=== PATIENT | male | born 1935 | race Caucasian/White ===

== ENCOUNTER 2018-12-01 08:44 | Emergency (ER) | payer MEDICARE ==
--- NOTE | 2018-12-01 09:22 | ERPHSYRPT ---
- History of Present Illness Time Seen by Provider: 12/01/18 09:12 Source: patient Exam Limitations: no limitations Patient Subjective Stated Complaint: "My back has been hurting for past 2 weeks probably due to lifting. heavy garage door. I have a long history of back problems no surgies by injections." Triage Nursing Assessment: AAox3, color good, resp easy, lungs clear bilaterally , abd soft, nontender, bowel sounds heard. CHACON well, no edema to extremeties noted. Denies falls. Physician History: The patient is an 83-year-old male complaining of a flareup of his low back pain. He has a history of low back pain with bilateral sciatica. His back pain began and has worsened for the past 2 weeks. He has been parking his car in his garage recently. He has a heavy garage door that he must lift himself. He denies any urinary or bowel problems. He denies numbness or tingling. He saw Dr. Sagastume a week ago and was given a "pain shot and steroid shot". He saw the same doctor 2 days ago and was once again given a "pain shot and steroid shot". The treatment has not helped. He is in pain every time he gets up out of bed. His past medical history is significant for low back pain, bilateral sciatica, HTN, DM, high cholesterol, and hypothyroidism Timing/Duration: week(s), gradual onset, worse Method of Injury: lifting Quality: sharp, aching Back Pain Location: lumbar spine Back Pain Radiation: buttocks, upper legs, lower legs Severity of Pain-Max: severe Severity of Pain-Current: severe Modifying Factors: Improves With: pain medication Associated Symptoms: lower back pain, No urinary incontinence, No loss of bowel control, No constipation, No problems urinating, No weakness, No sensory/motor loss, No tingling in legs/feet Previous symptoms: same symptoms as today, recently seen, recently treated Allergies/Adverse Reactions: Sulfa (Sulfonamide Antibiotics) Allergy (Mild, Verified 12/01/18 09:07) Home Medications: Acetaminophen 325 mg [Tylenol 325 mg] 325 mg PO TID 12/01/18 [History] Aspirin EC 81 mg [Ecotrin 81 mg] 81 mg PO DAILY 12/01/18 [History] Ferric Citrate [Auryxia] 210 mg PO TID 12/01/18 [History] Hydralazine HCl 10 mg PO TID 12/01/18 [History] Insulin Detemir [Levemir] 20 unit SQ BID 12/01/18 [History] Levothyroxine Sodium 50 Mcg [Synthroid 50 Mcg] 50 mcg PO DAILY 12/01/18 [ History] Metoprolol Tartrate 50 mg [Lopressor 50 MG] 50 mg PO BID 12/01/18 [History ] Polyethylene Glycol 3350 [Miralax] 17 gm PO DAILY 12/01/18 [History] Pravastatin Sodium 40 mg PO HS 12/01/18 [History] Ranitidine HCl [Zantac 75] 75 mg PO BID 12/01/18 [History] Hx Tetanus, Diphtheria Vaccination/Date Given: Yes Hx Influenza Vaccination/Date Given: Yes Hx Pneumococcal Vaccination/Date Given: No - Review of Systems Constitutional: No Fever, No Chills Eyes: No Symptoms Ears, Nose, & Throat: No Symptoms Respiratory: No Cough, No Dyspnea Cardiac: No Chest Pain, No Edema, No Syncope Abdominal/Gastrointestinal: No Abdominal Pain, No Nausea, No Vomiting, No Diarrhea Genitourinary Symptoms: No Dysuria Musculoskeletal: Back Pain, No Neck Pain Skin: No Rash Neurological: No Dizziness, No Focal Weakness, No Sensory Changes Psychological: No Symptoms Endocrine: No Symptoms Hematologic/Lymphatic: No Symptoms Immunological/Allergic: No Symptoms All Other Systems: Reviewed and Negative - Past Medical History Pertinent Past Medical History: Yes ENT History: No Pertinent History Cardiac History: No Pertinent History Respiratory History: No Pertinent History Endocrine Medical History: Hypothyroidism Musculoskeletal History: Other GI Medical History: GERD History: Renal Disease Psycho-Social History: No Pertinent History Male Reproductive Disorders: No Pertinent History - Past Surgical History Past Surgical History: Yes Neuro Surgical History: No Pertinent History Cardiac: No Pertinent History Respiratory: No Pertinent History Gastrointestinal: Cholecystectomy Genitourinary: No Pertinent History Musculoskeletal: No Pertinent History Male Surgical History: No Pertinent History - Social History Smoking Status: Never smoker Exposure to second hand smoke: No Drug Use: none Patient Lives Alone: Yes - Nursing Vital Signs Nursing Vital Signs: Initial Vital Signs Temperature 98.5 F 12/01/18 08:44 Pulse Rate 66 12/01/18 08:44 Respiratory Rate 20 12/01/18 08:44 Blood Pressure 159/72 12/01/18 08:44 O2 Sat by Pulse Oximetry 94 L 12/01/18 08:44 Pain Scale Pain Intensity 9 - Physical Exam General Appearance: moderate distress Eye Exam: PERRL/EOMI, eyes nml inspection Ears, Nose, Throat Exam: normal ENT inspection Neck Exam: normal inspection, non-tender, supple, full range of motion, No meningismus, No midline tenderness Respiratory Exam: normal breath sounds, lungs clear, No respiratory distress Cardiovascular Exam: regular rate/rhythm, normal heart sounds Gastrointestinal Exam: soft, No tenderness, No mass Rectal Exam: not done Back Exam: decreased range of motion, other (Examination of the low back is significant for bilateral lumbar paraspinous spasm and tenderness. There is also some mild tenderness lumbar vertebrae.) Extremity Exam: normal inspection, normal range of motion, No calf tenderness, No pedal edema Neurologic Exam: alert, oriented x 3, cooperative, windows laptop technician II-XII nml as tested, normal mood/affect, nml station & gait, sensation nml, No motor deficits Skin Exam: normal color, warm, dry, No rash SpO2 Interpretation: normal SpO2: 94 O2 Delivery: Room Air - Radiology Exams L-Spine X-ray Interpretation: Interpreted by me, Negative, No Fracture, No Subluxation, Other (non acute; L2/L3 vacuum disc, mild anteriolisthesis of L4 over L5, degenerative changes, no comp) Ordered Tests: Active Orders 24 hr Category Date Time Status LUMBAR LIMITED (2 OR 3 VIEWS) Stat Exams 12/01/18 10:09 Taken Medication Summary Discontinued Medications Generic Name Dose Route Start Last Admin Trade Name Herbie PRN Reason Stop Dose Admin Dexamethasone Sodium Phosphate 10 mg 12/01/18 09:33 12/01/18 09:42 Decadron 10mg Inj. IM 12/01/18 09:34 10 mg STAT ONE Administration Dexamethasone Sodium Phosphate Confirm 12/01/18 09:40 Decadron 10mg Inj. Administered 12/01/18 09:41 Dose 10 mg .ROUTE .STK-MED ONE Hydromorphone HCl 1 mg 12/01/18 09:31 12/01/18 09:43 Hydromorphone 1 Mg/Ml Ampule IM 12/01/18 09:32 1 mg STAT ONE Administration Hydromorphone HCl Confirm 12/01/18 09:40 Hydromorphone 1 Mg/Ml Ampule Administered 12/01/18 09:41 Dose 1 mg .ROUTE .STK-MED ONE Promethazine HCl 25 mg 12/01/18 09:31 12/01/18 09:42 Phenergan 25 Mg Inj IM 12/01/18 09:32 25 mg STAT ONE Administration Promethazine HCl Confirm 12/01/18 09:39 Phenergan 25 Mg Inj Administered 12/01/18 09:40 Dose 25 mg .ROUTE .STK-MED ONE - Progress Progress: improved Counseled pt/family regarding: diagnosis, need for follow-up, rad results - Departure Time of Disposition: 11:00 Departure Disposition: Home Clinical Impression: Low back pain due to bilateral sciatica Condition: Stable Critical Care Time: No Referrals: LAKISHA SAGASTUME MD [Primary Care Provider] - Additional Instructions: You have low back pain with bilateral sciatica. You were given Dilaudid 1 mg, Phenergan 25 mg, and Decadron 10 mg by IM in the ER. Take [place] one tablet every 6 hours as needed. Take cyclobenzaprine 10 mg every 8 hours as needed. Apply ice to the area for 15-20 minutes 3-4 times a day as needed. Follow-up with your primary medical doctor on Monday. Prescriptions: Hydrocodone/APAP 5-325 Tab^^^ [[place] 5-325 Tablet^^^] 1 tab PO Q6HPRN PRN #10 tablet MDD 6 PRN Reason: Pain Cyclobenzaprine HCl 10 mg PO Q8H PRN PRN #10 tablet PRN Reason: Pain
[2018-12-01] MEDS ORDERED: Hydromorphone 1 mg/ml Ampule IM ONE (09:31)
[2018-12-01] MEDS ORDERED: Phenergan 25 MG INJ IM ONE (09:31)
[2018-12-01] MEDS ORDERED: DECADRON 10MG INJ. IM ONE (09:33)
[2018-12-01] MEDS ORDERED: Phenergan 25 MG INJ ONE (09:39)
[2018-12-01] MEDS ORDERED: Hydromorphone 1 mg/ml Ampule ONE (09:40)
[2018-12-01] MEDS ORDERED: DECADRON 10MG INJ. ONE (09:40)
[2018-12-01 11:10] VITALS: BP 130/57; PULSE 56; O2SAT 96
--- NOTE | 2018-12-02 00:24 | XRAY ---
Indication: Low back pain following injury. Comparison: None 3 views of the lumbar spine demonstrates 5 lumbar vertebral segments with mild dextroscoliosis centered at L2, mild/moderate multilevel degenerative spondylosis greatest at L2-L3, 3-4 mm L4 anterolisthesis, cholecystectomy clips, calcified splenic granulomas, and heavy scattered vascular calcifications. No other bony, articular, or soft tissue abnormalities. Impression: Nonacute lumbar spine with chronic features.
== END 2018-12-01 11:20 | disposition home or self-care (01) ==
LOC: ED 08:44
DX: M54.30 Sciatica, unspecified side (principal); M54.5 Low back pain; I10 Essential (primary) hypertension; E11.9 Type 2 diabetes mellitus without complications; E78.00 Pure hypercholesterolemia, unspecified; E03.9 Hypothyroidism, unspecified; Z79.899 Other long term (current) drug therapy
CPT/HCPCS: 72100; 96372; 99284; J1100; J1170; J2550

== ENCOUNTER 2018-12-03 07:24 | Emergency (ER) | payer MEDICARE ==
[2018-12-03] MEDS ORDERED: Hydromorphone 1 mg/ml Ampule IV ONE (07:57)
[2018-12-03] MEDS ORDERED: Zofran 4 MG/2 ML VIAL IV ONE (07:57)
--- NOTE | 2018-12-03 07:57 | ERPHSYRPT ---
- History of Present Illness Time Seen by Provider: 12/03/18 07:52 Source: patient, EMS Exam Limitations: no limitations Patient Subjective Stated Complaint: pain lower back Triage Nursing Assessment: Pt c/o of chronic bilateral low back pain that radiates down both legs, reports that he slid out of bed this morning and couldn 't get up, was here 2 days ago for the same problem, denies going to a pain specialist, sees Dr. Sagastume, pulses normal, no difficulties with strength, doesn't appear to be in any distress Physician History: 83 y/o white male presents with acute exacerbation of his chronic lbp. here 2 days ago for same issue. plain xray negative Timing/Duration: today Method of Injury: other (no new injury) Quality: sharp, stabbing Back Pain Location: lumbar spine Back Pain Radiation: upper legs (bilat posteriorly) Severity of Pain-Max: moderate Severity of Pain-Current: moderate Modifying Factors: Improves With: movement Associated Symptoms: denies symptoms Previous symptoms: same symptoms as today Allergies/Adverse Reactions: Sulfa (Sulfonamide Antibiotics) Allergy (Mild, Verified 12/03/18 07:36) Home Medications: Acetaminophen 325 mg [Tylenol 325 mg] 325 mg PO TID 12/01/18 [History] Aspirin EC 81 mg [Ecotrin 81 mg] 81 mg PO DAILY 12/01/18 [History] Ferric Citrate [Auryxia] 210 mg PO TID 12/01/18 [History] Hydralazine HCl 10 mg PO TID 12/01/18 [History] Insulin Detemir [Levemir] 20 unit SQ BID 12/01/18 [History] Levothyroxine Sodium 50 Mcg [Synthroid 50 Mcg] 50 mcg PO DAILY 12/01/18 [ History] Metoprolol Tartrate 50 mg [Lopressor 50 MG] 50 mg PO BID 12/01/18 [History ] Polyethylene Glycol 3350 [Miralax] 17 gm PO DAILY 12/01/18 [History] Pravastatin Sodium 40 mg PO HS 12/01/18 [History] Ranitidine HCl [Zantac 75] 75 mg PO BID 12/01/18 [History] Hx Tetanus, Diphtheria Vaccination/Date Given: Yes Hx Influenza Vaccination/Date Given: Yes Hx Pneumococcal Vaccination/Date Given: No - Review of Systems Constitutional: No Symptoms Eyes: No Symptoms Ears, Nose, & Throat: No Symptoms Respiratory: No Symptoms Cardiac: No Symptoms Abdominal/Gastrointestinal: No Symptoms Genitourinary Symptoms: No Symptoms Musculoskeletal: Back Pain Skin: No Symptoms Neurological: No Symptoms Psychological: No Symptoms Endocrine: No Symptoms Hematologic/Lymphatic: No Symptoms Immunological/Allergic: No Symptoms All Other Systems: Reviewed and Negative - Past Medical History Pertinent Past Medical History: Yes ENT History: No Pertinent History Cardiac History: No Pertinent History Respiratory History: No Pertinent History Endocrine Medical History: Hypothyroidism Musculoskeletal History: Other GI Medical History: GERD History: Renal Disease Psycho-Social History: No Pertinent History Male Reproductive Disorders: No Pertinent History - Past Surgical History Past Surgical History: Yes Neuro Surgical History: No Pertinent History Cardiac: No Pertinent History Respiratory: No Pertinent History Gastrointestinal: Cholecystectomy Genitourinary: No Pertinent History Musculoskeletal: No Pertinent History Male Surgical History: No Pertinent History - Social History Smoking Status: Never smoker Exposure to second hand smoke: No Drug Use: none Patient Lives Alone: Yes - Nursing Vital Signs Nursing Vital Signs: Initial Vital Signs Temperature 98.0 F 12/03/18 07:26 Pulse Rate 66 12/03/18 07:26 Respiratory Rate 14 12/03/18 07:26 Blood Pressure 175/79 12/03/18 07:26 O2 Sat by Pulse Oximetry 97 12/03/18 07:26 Pain Scale Pain Intensity [Lower Back] 6 Pain Intensity 4 - Physical Exam General Appearance: mild distress, alert, anxiety Eye Exam: PERRL/EOMI Ears, Nose, Throat Exam: normal ENT inspection, moist mucous membranes Neck Exam: normal inspection, non-tender, supple, full range of motion Respiratory Exam: normal breath sounds, lungs clear, airway intact, No chest tenderness, No respiratory distress Cardiovascular Exam: regular rate/rhythm, normal heart sounds, normal peripheral pulses Gastrointestinal Exam: soft, normal bowel sounds, No tenderness, No guarding, No rebound Rectal Exam: not done Back Exam: normal inspection, decreased range of motion, muscle spasm, No CVA tenderness, No vertebral tenderness, No point tenderness Extremity Exam: normal inspection, normal range of motion, pelvis stable Neurologic Exam: alert, oriented x 3, cooperative, sterile processing technologist II-XII nml as tested Skin Exam: normal color, warm, dry Lymphatic Exam: No adenopathy SpO2 Interpretation: normal SpO2: 97 O2 Delivery: Room Air - Course Nursing assessment & vital signs reviewed: Yes Ordered Tests: Active Orders 24 hr Category Date Time Status IV Insertion STAT Care 12/03/18 07:57 Active Oxygen-ED Only Nasal Cannula 2 lpm Care 12/03/18 08:30 Active LUMBAR SPINE W/O [CT] Stat Exams 12/03/18 07:57 Completed Medication Summary Discontinued Medications Generic Name Dose Route Start Last Admin Trade Name Herbie PRN Reason Stop Dose Admin Diazepam 5 mg 12/03/18 07:58 12/03/18 08:17 Valium 10 Mg/2 Ml Syringe IV 12/03/18 07:59 5 mg STAT ONE Administration Hydromorphone HCl 0.5 mg 12/03/18 07:57 12/03/18 08:12 Hydromorphone 1 Mg/Ml Ampule IV 12/03/18 07:58 0.5 mg STAT ONE Administration Hydromorphone HCl Confirm 12/03/18 08:09 Hydromorphone 1 Mg/Ml Ampule Administered 12/03/18 08:10 Dose 1 mg .ROUTE .STK-MED ONE Ondansetron HCl 4 mg 12/03/18 07:57 12/03/18 08:12 Zofran 4 Mg/2 Ml Vial IV 12/03/18 07:58 4 mg STAT ONE Administration Ondansetron HCl Confirm 12/03/18 08:09 Zofran 4 Mg/2 Ml Vial Administered 12/03/18 08:10 Dose 4 mg .ROUTE .STK-MED ONE - Progress Progress: improved, pain not gone completely, re-examined Progress Note: 12/03/18 10:34 pt much more comfortable. pt intermittently falling asleep. still unable to get up on his own. spoke with dr. sagastume, i reviewed pt condition and findings. dr. sagastume states to take pt for his dialysis now then dialysis is to call dr. sagastume for direct admit orders into [facility] Counseled pt/family regarding: diagnosis, need for follow-up, rad results - Departure Time of Disposition: 10:38 Departure Disposition: Home Clinical Impression: Back pain Condition: Stable Critical Care Time: No Referrals: LAKISHA SAGASTUME MD [Primary Care Provider] - Additional Instructions: go to dialysis. after dialysis, he is to be directly admitted into [facility] by Dr. Sagastume.
[2018-12-03] MEDS ORDERED: VALIUM 10 MG/2 ML SYRINGE IV ONE (07:58)
[2018-12-03] MEDS ORDERED: Hydromorphone 1 mg/ml Ampule ONE (08:09)
[2018-12-03] MEDS ORDERED: Zofran 4 MG/2 ML VIAL ONE (08:09)
--- NOTE | 2018-12-03 09:42 | XRAY ---
Indication: Low back pain. Multiple contiguous axial images obtained through the lumbar spine. Sagittal and coronal reformatted images obtained. Comparison: Lumbar radiograph 2 days ago. Negative acute fracture or suspicious bony lesions. Again osteopenia, multilevel bridging/nonbridging endplate osteophytes, and L2-L5 degenerative vacuum disc phenomena. There is L3-L5 spinal canal stenosis due to combination of broad-based disc bulge and bilateral ligament flavum hypertrophy. Mean AP thecal sac diameter is 8mm at L3-L4 level and 9 mm at L4-L5 level. Lesser broad-based disc bulge at L2-L3 level. Sagittal and coronal reformatted images demonstrates stable mild dextroscoliosis centered at L2-L3, minimal 2 mm L4 anterolisthesis, and multilevel disc space narrowing greatest at L2-L3. Negative acute compression fracture/subluxation. Elsewhere stable heavy vascular calcifications without AAA. Impression: 1. Multilevel degenerative disc disease. Greatest extent at L3-L5 levels with spinal canal stenosis. 2. Stable osteopenia, multilevel degenerative spondylosis, minimal grade 1 L4 spondylolisthesis, dextroscoliosis, and arteriosclerotic disease. 3. Remaining CT lumbar spine is negative. CT DI 97.93
[2018-12-03 11:34] VITALS: BP 149/65; PULSE 60; O2SAT 99
== END 2018-12-03 11:05 | disposition home or self-care (01) ==
LOC: ED 07:24
DX: M54.5 Low back pain (principal); M79.662 Pain in left lower leg; M79.661 Pain in right lower leg; E03.9 Hypothyroidism, unspecified; K21.9 Gastro-esophageal reflux disease without esophagitis
CPT/HCPCS: 36000; 72131; 96374; 96375; 99284; J1170; J2405; J3360

== ENCOUNTER 2018-12-03 13:05 | Observation (INO) | payer MEDICARE ==
[2018-12-03] MEDS: Sodium Chloride 0.9% 1000 ML 1,000 ML IV SCH (17:29)
[2018-12-03] MEDS ORDERED: TYLENOL 325 MG PO PRN (17:32)
[2018-12-03] MEDS ORDERED: Cyclobenzaprine 10 MG PO PRN (17:32)
[2018-12-03] MEDS ORDERED: NORCO 5/325 MG PO PRN (17:38)
[2018-12-03] MEDS: Neurontin 100 MG PO SCH (21:27)
[2018-12-03] MEDS: Pepcid 20 MG PO SCH (21:27)
[2018-12-03] MEDS: ZOCOR 20MG PO SCH (21:28)
[2018-12-03] MEDS: Sodium Chloride 0.9% 10 ML FLUSH Syringe IV SCH (21:28)
[2018-12-03] MEDS ORDERED: Lantus Insulin SQ SCH (22:00)
[2018-12-03] MEDS ORDERED: Apresoline 25 MG TABLET PO SCH (22:00)
[2018-12-03] MEDS ORDERED: Toprol Xl 50 MG PO SCH (22:00)
[2018-12-04] MEDS: TORAdol 30 mg Injection IV PRN ×2 (01:38→13:58)
[2018-12-04] MEDS: Sodium Chloride 0.9% 10 ML FLUSH Syringe IV SCH ×3 (05:27→22:17)
[2018-12-04] MEDS ORDERED: MEDICATION INTERVENTION MC SCH (07:30)
[2018-12-04] MEDS: Lantus Insulin SQ SCH ×2 (08:01→22:17)
--- NOTE | 2018-12-04 08:54 | PCM.NOTE ---
Date and Time: 12/04/18 0850 Subjective Assessment: still c/o pain in legs, unable to bear weight as pain radiate to legs - Review of Systems Constitutional: No Fever, No Chills Eyes: No Symptoms Ears, Nose, & Throat: No Symptoms Respiratory: No Cough, No Short Of Breath Cardiac: No Chest Pain, No Edema, No Syncope Abdominal/Gastrointestinal: No Abdominal Pain, No Nausea, No Vomiting, No Diarrhea Genitourinary Symptoms: No Dysuria Musculoskeletal: Arthralgias, Joint Pain, No Back Pain, No Neck Pain Skin: No Rash Neurological: Focal Weakness, No Dizziness, No Sensory Changes Psychological: No Symptoms Endocrine: No Symptoms Hematologic/Lymphatic: No Symptoms Immunological/Allergic: No Symptoms Objective Exam General Appearance: no apparent distress, alert Neurologic Exam: alert, oriented x 3, cooperative, normal mood/affect, nml cerebellar function, sensation nml, No motor deficits Skin Exam: normal color, warm, dry Eye Exam: PERRL, EOMI, eyes nml inspection Ears, Nose, Throat Exam: normal ENT inspection, pharynx normal, moist mucous membranes Neck Exam: normal inspection, non-tender, supple, full range of motion Respiratory Exam: normal breath sounds, lungs clear, No respiratory distress Cardiovascular Exam: regular rate/rhythm, normal heart sounds Gastrointestinal/Abdomen Exam: soft, No tenderness, No mass Extremity Exam: normal inspection, normal range of motion, parasthesia, limited range of motion Back Exam: normal inspection, normal range of motion, vertebral tenderness, decreased range of motion, muscle spasm, No CVA tenderness Male Genitalia Exam: deferred Rectal Exam: deferred OBJECTIVE DATA Vital Signs: Vital Signs - 24 hr Temp Pulse Resp BP Pulse Ox 12/04/18 08:00 97.7 F 53 L 18 128/60 92 L 12/04/18 04:00 97.9 F 63 18 109/57 94 L 12/03/18 23:47 98.5 F 53 L 20 123/59 94 L 12/03/18 19:05 98.1 F 62 22 118/57 92 L 12/03/18 16:04 97.7 F 62 18 142/65 96 Pain Assessment - Last Documented Pain Intensity 3 Pain Scale Used 0-10 Pain Scale Intake and Output: Intake & Output 12/01/18 12/02/18 12/03/18 12/04/18 11:59 11:59 11:59 11:59 Intake Total 780 Balance 780 Weight 85.4 kg Lab Results: Accuchecks Date 12/03/18 Time 21:50 Accucheck Value: 65 Accucheck Value: 209 Accucheck Value: 98 Lab Results-Last 24 Hours 12/03/18 Range/Units 08:03 Hemoglobin A1c 6.91 H (4.5-6.0) % Radiology Exams: Radiology Procedures Category Date Time Status MRI L-SPINE WITHOUT CONTRAST [MRI] Routine Exams 12/04/18 16:30 Ordered Assessment/Plan (1) Intractable back pain Current Visit: Yes Status: Acute Code(s): M54.9 - DORSALGIA, UNSPECIFIED (2) Chronic renal disease, stage 5, glomerular filtration rate less than or equal to 15 mL/min/1.73 square meter Current Visit: Yes Status: Acute Code(s): N18.5 - CHRONIC KIDNEY DISEASE, STAGE 5 (3) Low back pain due to bilateral sciatica Current Visit: No Status: Acute Code(s): M54.41 - LUMBAGO WITH SCIATICA, RIGHT SIDE; M54.42 - LUMBAGO WITH SCIATICA, LEFT SIDE (4) Degenerative disc disease, lumbar Current Visit: Yes Status: Acute Code(s): M51.36 - OTHER INTERVERTEBRAL DISC DEGENERATION, LUMBAR REGION
[2018-12-04] MEDS: ECOTRIN 81 MG PO SCH (09:17)
[2018-12-04] MEDS: Miralax Powder 17GM PACKET PO SCH (09:17)
[2018-12-04] MEDS: Pepcid 20 MG PO SCH ×2 (09:17→22:18)
[2018-12-04] MEDS: SYNTHROID 50 MCG PO SCH (09:17)
[2018-12-04] MEDS: Lopressor 50 MG PO SCH ×2 (09:17→22:17)
[2018-12-04] MEDS: Apresoline 25 MG TABLET PO SCH ×3 (09:17→22:17)
[2018-12-04] MEDS: NORCO 5/325 MG PO PRN (09:23)
[2018-12-04] MEDS: Cyclobenzaprine 10 MG PO PRN (13:26)
--- NOTE | 2018-12-04 15:23 | XRAY ---
Indication: Low back pain following lifting injury. Sagittal and axial MRI lumbar spine performed without contrast using T1 and T2 weighted sequences. Comparison: None. There is CT lumbar spine one day earlier. Sagittal images demonstrates normal lumbar lordosis with mild double curvature scoliosis and 2-3 mm L4 anterolisthesis. Multilevel degenerative disc desiccation signal with disc space narrowing greatest at the L2-L3 and L4-L5 levels. These 2 same levels demonstrate opposing endplate degenerative discogenic signal changes, Modic type II. Tiny T11/T12/L1/L5 vertebral hemangiomas. Superior S2 level demonstrates acute to subacute appearing nondisplaced/non-angulated fracture. No suspicious bony lesions or abnormal bone marrow signal. Conus medullaris terminates at the L1 level. Sagittal images through the T12-L2 levels negative for disc herniation, spinal canal, or foraminal stenosis. Axial images at the L2-L3 level demonstrates mild annular disc osteophyte complex slightly effacing the thecal sac and producing left foraminal stenosis and right foraminal narrowing. There is impingement of the exiting left L2 nerve root. No central disc herniation. Mild bilateral degenerative facet and ligamentum flavum hypertrophy further effaces the thecal sac. Mean AP thecal sac diameter is 8 mm. At the L3-L4 level, there is mild annular disc bulge slightly effacing the thecal sac and producing bilateral foraminal stenosis, left greater than right. Slight impingement of the exiting left L3 nerve root. Mild bilateral degenerative facet and ligamentum flavum hypertrophy. Mean AP thecal sac diameter is 9 mm. At the L4-L5 level, there bilateral foraminal stenosis, right greater than left due to combination of mild annular disc bulge and grade 1 anterolisthesis. Impingement of the exiting right L4 nerve root. Moderate bilateral degenerative facet and ligamentum flavum hypertrophy. Mean AP thecal sac diameter is 8-9 mm. At the L5-S1 level, there is minimal broad-based disc bulge minimally effacing the thecal sac. No disc herniation, spinal canal, or foraminal stenosis. Minimal bilateral degenerative facet hypertrophy. Incidental massively distended urinary bladder. Impression: 1. Multilevel degenerative disc disease detailed level by level. Greatest extent L2-L3 and L4-L5 levels. Negative disc herniation. 2. Nondisplaced acute to subacute appearing S2 fracture. This level was not included on the recent CT exam. 3. Grade 1 L4 spondylolisthesis, multilevel vertebral hemangiomas, and double curvature scoliosis. 4. Massively distended urinary bladder. Rule out outlet obstruction versus neurogenic bladder.
[2018-12-04] MEDS: Sodium Chloride 0.9% 1000 ML 1,000 ML IV SCH (18:08)
[2018-12-04] MEDS: Neurontin 100 MG PO SCH (22:17)
[2018-12-04] MEDS: ZOCOR 20MG PO SCH (22:18)
[2018-12-05] MEDS: NORCO 5/325 MG PO PRN ×2 (03:33→15:21)
[2018-12-05] MEDS: Sodium Chloride 0.9% 10 ML FLUSH Syringe IV SCH ×3 (05:22→21:27)
[2018-12-05] MEDS: TORAdol 30 mg Injection IV PRN ×2 (07:58→21:27)
[2018-12-05] MEDS: Lantus Insulin SQ SCH ×2 (08:10→21:27)
[2018-12-05] MEDS: SYNTHROID 50 MCG PO SCH (10:46)
[2018-12-05] MEDS: Apresoline 25 MG TABLET PO SCH ×2 (10:46→14:42)
[2018-12-05] MEDS: ECOTRIN 81 MG PO SCH (10:46)
[2018-12-05] MEDS: Pepcid 20 MG PO SCH ×2 (10:47→21:27)
[2018-12-05] MEDS: Lopressor 50 MG PO SCH ×2 (10:47→21:26)
[2018-12-05] MEDS: Miralax Powder 17GM PACKET PO SCH (10:47)
[2018-12-05 12:08] LABS: ANION GAP 21.5 MEQ/L (5-15); Calcium 8.7 mg/dL (8.4-10.2); Creatinine 1 8.63 mg/dL (0.66-1.25); Potassium 5.5 mmol/L (3.5-5.1)
--- NOTE | 2018-12-05 12:25 | PCM.NOTE ---
Date and Time: 12/05/18 1224 Subjective Assessment: doing ok still severe back pain - Review of Systems Constitutional: No Fever, No Chills Eyes: No Symptoms Ears, Nose, & Throat: No Symptoms Respiratory: No Cough, No Short Of Breath Cardiac: No Chest Pain, No Edema, No Syncope Abdominal/Gastrointestinal: No Abdominal Pain, No Nausea, No Vomiting, No Diarrhea Genitourinary Symptoms: No Dysuria Musculoskeletal: No Back Pain, No Neck Pain Skin: No Rash Neurological: Gait Changes, No Dizziness, No Focal Weakness, No Sensory Changes Psychological: No Symptoms Endocrine: No Symptoms Hematologic/Lymphatic: No Symptoms Immunological/Allergic: No Symptoms Objective Exam General Appearance: no apparent distress, alert Neurologic Exam: alert, oriented x 3, cooperative, normal mood/affect, nml cerebellar function, sensation nml, No motor deficits Skin Exam: normal color, warm, dry Eye Exam: PERRL, EOMI, eyes nml inspection Ears, Nose, Throat Exam: normal ENT inspection, pharynx normal, moist mucous membranes Neck Exam: normal inspection, non-tender, supple, full range of motion Respiratory Exam: normal breath sounds, lungs clear, No respiratory distress Cardiovascular Exam: regular rate/rhythm, normal heart sounds Gastrointestinal/Abdomen Exam: soft, No tenderness, No mass Extremity Exam: normal inspection, normal range of motion Back Exam: normal inspection, normal range of motion, No CVA tenderness, No vertebral tenderness Male Genitalia Exam: deferred Rectal Exam: deferred OBJECTIVE DATA Vital Signs: Vital Signs - 24 hr Temp Pulse Resp BP Pulse Ox 12/05/18 07:31 97.6 F 78 20 138/80 97 12/05/18 04:15 97.6 F 61 18 155/67 96 12/04/18 23:35 98.6 F 57 L 16 161/70 96 12/04/18 19:41 97.7 F 55 L 18 141/58 97 12/04/18 16:00 56 L 18 147/65 94 L Pain Assessment - Last Documented Pain Intensity 6 Pain Scale Used 0-10 Pain Scale Intake and Output: Intake & Output 12/03/18 12/04/18 12/05/18 12/06/18 11:59 11:59 11:59 11:59 Intake Total 780 660 Output Total 8 Balance 780 652 Weight 85.4 kg Lab Results: Accuchecks Date 12/05/18 Date 12/05/18 Time 11:30 Time 07:30 Accucheck Value: 158 Accucheck Value: 102 Accucheck Value: 225 Accucheck Value: 185 Lab Results-Last 24 Hours 12/05/18 Range/Units 11:10 Sodium 133 L (137-145) mmol/L Potassium 5.5 H (3.5-5.1) mmol/L Chloride 88 L (98-107) mmol/L Carbon Dioxide 29 (22-30) mmol/L Anion Gap 21.5 H (5-15) MEQ/L BUN 87 H (9-20) mg/dL Creatinine 8.63 H (0.66-1.25) mg/dL Estimated GFR 6.3 ML/MIN Glucose 123 H (74-106) mg/dL Calcium 8.7 (8.4-10.2) mg/dL Radiology Exams: Radiology Procedures Category Date Time Status MRI L-SPINE WITHOUT CONTRAST [MRI] Routine Exams 12/04/18 14:50 Completed Multi-Disciplinary Progress Notes: Multi-Disciplinary Progress Notes 12/05/18 09:55 (created 12/05/18 10:03) Case Management Note by Luz Parks CALL TO [facility], SPOKE WITH TONIA RIGGINS, DISCUSSED THAT PT WILL NOT BE COMING TO DIALYSIS TODAY. PLAN FOR PT TO MAKE HIS NEXT DIALYSIS APPT ON MONDAY. TONIA RIGGINS, REQUESTS ORDER FOR RENAL DIET AND FLUID RESTRICTION. Initialized on 12/05/18 10:03 - END OF NOTE Assessment/Plan (1) Intractable back pain Current Visit: Yes Status: Acute Code(s): M54.9 - DORSALGIA, UNSPECIFIED (2) Chronic renal disease, stage 5, glomerular filtration rate less than or equal to 15 mL/min/1.73 square meter Current Visit: Yes Status: Acute Code(s): N18.5 - CHRONIC KIDNEY DISEASE, STAGE 5 (3) Low back pain due to bilateral sciatica Current Visit: Yes Status: Acute Code(s): M54.41 - LUMBAGO WITH SCIATICA, RIGHT SIDE; M54.42 - LUMBAGO WITH SCIATICA, LEFT SIDE (4) Degenerative disc disease, lumbar Current Visit: Yes Status: Acute Code(s): M51.36 - OTHER INTERVERTEBRAL DISC DEGENERATION, LUMBAR REGION
[2018-12-05] MEDS: Cyclobenzaprine 10 MG PO PRN (15:21)
[2018-12-05] MEDS ORDERED: Apresoline 25 MG TABLET PO ONE ×2 (16:41→22:00)
[2018-12-05] MEDS: Neurontin 100 MG PO SCH (21:27)
[2018-12-05] MEDS: ZOCOR 20MG PO SCH (21:27)
[2018-12-06] MEDS: Sodium Chloride 0.9% 10 ML FLUSH Syringe IV SCH (05:25)
[2018-12-06 07:50] VITALS: PULSE 54; O2SAT 96
[2018-12-06] MEDS: TORAdol 30 mg Injection IV PRN (08:17)
[2018-12-06] MEDS: Cyclobenzaprine 10 MG PO PRN (08:17)
[2018-12-06] MEDS: Lantus Insulin SQ SCH (08:20)
[2018-12-06] MEDS: Miralax Powder 17GM PACKET PO SCH (10:24)
[2018-12-06] MEDS: Pepcid 20 MG PO SCH (10:25)
[2018-12-06] MEDS: Lopressor 50 MG PO SCH (10:25)
[2018-12-06] MEDS: ECOTRIN 81 MG PO SCH (10:26)
[2018-12-06] MEDS: SYNTHROID 50 MCG PO SCH (10:27)
[2018-12-06] MEDS: Apresoline 25 MG TABLET PO SCH ×2 (10:33→14:50)
[2018-12-06 13:30] VITALS: BP 176/76
== END 2018-12-06 15:55 | disposition short-term general hospital (02) ==
LOC: MED SURG 16:00
PROVIDERS: ADMIT General Practice; ATTEND General Practice
DX: M54.42 Lumbago with sciatica, left side (principal); M54.41 Lumbago with sciatica, right side; M51.36 Other intervertebral disc degeneration, lumbar region; N18.5 Chronic kidney disease, stage 5; E11.9 Type 2 diabetes mellitus without complications; I10 Essential (primary) hypertension; E78.00 Pure hypercholesterolemia, unspecified; E03.9 Hypothyroidism, unspecified; Z85.46 Personal history of malignant neoplasm of prostate; Z79.899 Other long term (current) drug therapy
CPT/HCPCS: 36000; 36415; 72131; 72148; 80048; 82962; 83036; 87086; 96374; 96375; 97161; 97530; 99284; G0378; J1170; J1885; J2405; J3360; A9270-GY

== ENCOUNTER 2019-01-30 07:56 | Day surgery (SDC) | payer MEDICARE ==
[2019-01-30] MEDS ORDERED: Depo-Medrol 40 MG/ML IM ONE (07:57)
[2019-01-30] MEDS ORDERED: Marcaine 0.5% SDV 10 ML IJ ONE (07:57)
[2019-01-30] MEDS ORDERED: Xylocaine 1% Vial 30 ML PF IJ ONE (07:57)
[2019-01-30] MEDS ORDERED: ZOFRAN ODT 4 MG PO ONE ×2 (07:57→09:15)
--- NOTE | 2019-01-30 10:26 | XRAY ---
Indication: Left hip injection. Intraoperative fluoroscopy was provided for 11 seconds. Single digital spot image submitted for interpretation demonstrates needle tip adjacent to the left greater trochanter. Small amount of contrast injected for needle tip placement. Correlate with intraoperative findings/report.
--- NOTE | 2019-01-30 10:26 | XRAY ---
9 seconds fluoroscopy time in surgery for right hip injection.
--- NOTE | 2019-01-30 10:26 | XRAY ---
Indication: Right hip injection. Intraoperative fluoroscopy was provided for 9 seconds. Single digital spot image submitted for interpretation demonstrates needle tip adjacent to the right greater trochanter. Small amount of contrast injected for needle tip placement. Correlate with intraoperative findings/report.
--- NOTE | 2019-01-30 10:31 | XRAY ---
11 seconds fluoroscopy time in surgery for left hip injection.
[2019-01-30] MEDS ORDERED: Lactated Ringers 1,000 ML IV ONE (17:08)
== END 2019-01-30 09:40 | disposition home or self-care (01) ==
LOC: SDC-PAIN 07:56
PROVIDERS: ATTEND Psychiatry & Neurology Pain Medicine
DX: M70.62 Trochanteric bursitis, left hip (principal); M70.61 Trochanteric bursitis, right hip; M25.551 Pain in right hip; M25.552 Pain in left hip; Z79.899 Other long term (current) drug therapy; E11.9 Type 2 diabetes mellitus without complications; E03.9 Hypothyroidism, unspecified; E78.5 Hyperlipidemia, unspecified; K59.09 Other constipation; M10.9 Gout, unspecified; R33.9 Retention of urine, unspecified; N18.6 End stage renal disease; I50.9 Heart failure, unspecified
CPT/HCPCS: 20611; 73501; 77002; 82962; J1030; J2001; Q0162; Q9966

== ENCOUNTER 2019-09-09 15:53 | Observation (INO) | payer MEDICARE ==
[2019-09-09 16:36] LABS: INR 1.19 (0.8-3.0); PROTIME 13.5 SECONDS (8.83-12.87)
--- NOTE | 2019-09-09 16:42 | XRAY ---
Indication: Short of breath. Confusion. Comparison: None Portable chest underinflated accentuating the cardiopulmonary structures with cardiomegaly. No focal infiltrate, consolidation, or large effusion. Bony thorax intact with mild osteopenia and degenerative changes. Impression: Nonacute underinflated chest with cardiomegaly.
--- NOTE | 2019-09-09 16:44 | XRAY ---
Indication: Confusion and lethargy. Multiple contiguous axial images obtained through the head without contrast. Comparison: None Several images slightly degraded by motion artifact. Age-appropriate global atrophy. No acute intracranial hemorrhage, abnormal extra-axial fluid collection, or mass effect. Fourth ventricle is midline without hydrocephalus. Hernandez-white matter differentiation preserved. Bony calvarium intact. Visualized paranasal sinuses and mastoid air cells are clear. Impression: Minimal motion artifact. No acute intracranial abnormalities. CTDI 52.87
[2019-09-09] MEDS ORDERED: Sodium Chloride 0.9% 1000 ML 1,000 ML ONE (16:47)
[2019-09-09] MEDS: Sodium Chloride 0.9% 1000 ML 1,000 ML IV SCH ×2 (16:49→20:04)
[2019-09-09 17:08] LABS: ALBUMIN 4.3 g/dL (3.5-5.0); ANION GAP 15.8 MEQ/L (5-15); BILIRUBIN,TOTAL 0.7 mg/dL (0.2-1.3); Creatinine 1 4.87 mg/dL (0.66-1.25); Potassium 4.2 mmol/L (3.5-5.1); Total Protein 7.4 g/dL (6.3-8.2)
[2019-09-09 17:15] LABS: Hematocrit 36.5 % (42-50); Hemoglobin 11.3 gm/dl (12.5-18.0); Mean Cell Volume 103.4 fl (78-100); Mean Platelet Volume 10.1 fl (6-9.5); Platelet Count 209 K/mm3 (150-450); Red Blood Count 3.53 M/mm3 (4.1-5.6); Red Cell Distribution Width 14.9 % (11.5-14.0)
--- NOTE | 2019-09-09 17:40 | ERPHSYRPT ---
- History of Present Illness Time Seen by Provider: 09/09/19 16:35 Source: patient, family, EMS Exam Limitations: no limitations Patient Subjective Stated Complaint: "I remember going to dialysis. I have no pain. I fell last night and I am on blood thinners." Triage Nursing Assessment: Pt presents to ER by EMS from dialysis center, recieved 2 hours and 50 minutes of normal 4 hour dialysis when arms started to shake and increased confusion began. Pt presents to ER with delayed speech, is able to tell us his Social security number, date, current president. States fell last night and is on "blood thinners". Pt lungs clear, resp easy and unlabored. Pt abd soft and nontender, denies n/v/d states is "hungry". Pt was lifted from EMS cot to Hospital bed. Family at bedside. Physician History: throat is a 1 white male who is on dialysis for end-stage renal disease he yesterday fell on it he did hit his head in and probably lost consciousness but could not get up. He seemed okay he was sent to dialysis today he normally dialyzes for about 4 hours today he did 2 hours and 15 minutes and it was noted that he seemed to have some confusion his blood sugar was okay his blood pressure was okay it was elected to send him to the ER. Timing/Duration: yesterday Severity: mild Character of Deficits: none Deficits: cannot stand, cannot walk Baseline/Normal Cognition: alert oriented x 3 Current Cognition: alert oriented x 3 Associated Symptoms: confusion Allergies/Adverse Reactions: Sulfa (Sulfonamide Antibiotics) Allergy (Mild, Verified 09/09/19 16:11) Home Medications: Acetaminophen 325 mg [Tylenol 325 mg] 325 mg PO TID 12/01/18 [History] Aspirin EC 81 mg [Ecotrin 81 mg] 81 mg PO DAILY 12/01/18 [History] Ferric Citrate [Auryxia] 210 mg PO TID 12/01/18 [History] Hydralazine HCl 10 mg PO TID 12/01/18 [History] Insulin Detemir [Levemir] 20 unit SQ BID 12/01/18 [History] Levothyroxine Sodium 50 Mcg [Synthroid 50 Mcg] 50 mcg PO DAILY 12/01/18 [ History] Metoprolol Tartrate 50 mg [Lopressor 50 MG] 50 mg PO BID 12/01/18 [History ] Polyethylene Glycol 3350 [Miralax] 17 gm PO DAILY 12/01/18 [History] Pravastatin Sodium 40 mg PO HS 12/01/18 [History] Ranitidine HCl [Zantac 75] 150 mg PO BID 12/01/18 [History] Gabapentin 100 mg PO HS 12/03/18 [History] Clonidine HCl Tts-2 Patch [Catapres TTS-2 PATCH] 0.3 mg TD WEEKLY 12/04/18 [History] Hx Tetanus, Diphtheria Vaccination/Date Given: Yes Hx Influenza Vaccination/Date Given: Yes Hx Pneumococcal Vaccination/Date Given: Yes Immunizations Up to Date: Yes - Review of Systems Constitutional: No Fever, No Chills Eyes: No Symptoms Ears, Nose, & Throat: No Symptoms Respiratory: No Cough, No Dyspnea Cardiac: No Chest Pain, No Edema, No Syncope Abdominal/Gastrointestinal: No Abdominal Pain, No Nausea, No Vomiting, No Diarrhea Genitourinary Symptoms: No Dysuria Musculoskeletal: No Back Pain, No Neck Pain Skin: No Rash Neurological: No Dizziness, No Focal Weakness, No Sensory Changes Psychological: No Symptoms Endocrine: No Symptoms All Other Systems: Reviewed and Negative - Past Medical History Pertinent Past Medical History: Yes Neurological History: No Pertinent History ENT History: No Pertinent History Cardiac History: Hypertension Respiratory History: No Pertinent History Endocrine Medical History: Diabetes Type II, Hypothyroidism Musculoskeletal History: Arthritis GI Medical History: GERD History: Renal Disease Psycho-Social History: No Pertinent History Male Reproductive Disorders: No Pertinent History - Past Surgical History Past Surgical History: Yes Neuro Surgical History: No Pertinent History Cardiac: No Pertinent History Respiratory: No Pertinent History Gastrointestinal: Cholecystectomy Genitourinary: No Pertinent History Musculoskeletal: No Pertinent History Male Surgical History: Prostate Surgery - Social History Smoking Status: Never smoker Exposure to second hand smoke: No Drug Use: none Patient Lives Alone: Yes - Nursing Vital Signs Nursing Vital Signs: Initial Vital Signs Temperature 97.2 F 09/09/19 15:56 Pulse Rate 68 09/09/19 15:56 Respiratory Rate 18 09/09/19 15:56 Blood Pressure 210/80 09/09/19 15:56 O2 Sat by Pulse Oximetry 95 09/09/19 15:56 Pain Scale Pain Intensity 0 - [place] Coma Scale Best Eye Response ([place]): (4) open spontaneously Best Verbal Response ([place]): (5) oriented Best Motor Response ([place]): (6) obeys commands [place] Total: 15 - Physical Exam General Appearance: no apparent distress, alert Eye Exam: bilateral eye: PERRL, EOMI Ears, Nose, Throat Exam: normal ENT inspection, moist mucous membranes Neck Exam: normal inspection, non-tender, supple Respiratory: normal breath sounds, lungs clear, airway intact, No respiratory distress Cardiovascular: regular rate/rhythm, No edema Gastrointestinal: soft, No tenderness, No distention Back Exam: normal inspection Extremity Exam: normal inspection, No pedal edema Mental Status: alert, oriented x 3 sole leveler Exam: tongue midline Coordination/Gait: normal finger to nose, normal gait Skin Exam: normal color, warm, dry, No rash SpO2: 98 - Radiology Exams Chest X-ray Interpretation: Other (no acute findings) - CT Exams Head CT Interpretation: Other (nno acute changes) Ordered Tests: Active Orders 24 hr Category Date Time Status EKG-ER Only STAT Care 09/09/19 15:54 Active CHEST 1 VIEW (PORTABLE) Stat Exams 09/09/19 16:04 Completed HEAD WITHOUT CONTRAST [CT] Stat Exams 09/09/19 15:56 Completed CBC W DIFF Stat Lab 09/09/19 16:50 Completed CMP Stat Lab 09/09/19 16:50 Completed Lactic Acid Stat Lab 09/09/19 16:14 Completed MAGNESIUM Stat Lab 09/09/19 16:06 Completed Manual Differential NC Stat Lab 09/09/19 16:50 Completed PROTIME WITH INR Stat Lab 09/09/19 15:54 Completed TROPONIN Q3H Lab 09/09/19 17:30 Ordered TROPONIN Q3H Lab 09/09/19 20:30 Ordered TROPONIN Q3H Lab 09/09/19 23:30 Ordered TSH, 3RD Generation Stat Lab 09/09/19 16:00 Completed UA W/RFX UR CULTURE Stat Lab 09/09/19 15:56 Uncollected Medication Summary Generic Name Dose Route Start Last Admin Trade Name Freq PRN Reason Stop Dose Admin Sodium Chloride 1,000 mls @ 50 mls/hr 09/09/19 16:00 09/09/19 16:49 Sodium Chloride 0.9% 1000 Ml IV 10/09/19 15:59 50 mls/hr .Q20H ZAIN Administration Lab/Rad Data: Laboratory Result Diagrams 09/09/19 16:50 09/09/19 16:50 Laboratory Results 09/09/19 09/09/19 09/09/19 Range/Units Unknown 16:50 16:50 WBC 9.0 (4.0-10.5) K/mm3 RBC 3.53 L (4.1-5.6) M/mm3 Hgb 11.3 L (12.5-18.0) gm/dl Hct 36.5 L (42-50) % MCV 103.4 H (78-100) fl MCH 32.0 (26-32) pg MCHC 31.0 L (32-36) g/dl RDW 14.9 H (11.5-14.0) % Plt Count 209 (150-450) K/mm3 MPV 10.1 H (6-9.5) fl PT (8.83-12.87) SECONDS INR (0.8-3.0) Sodium 141 (137-145) mmol/L Potassium 4.2 (3.5-5.1) mmol/L Chloride 94 L (98-107) mmol/L Carbon Dioxide 35 H (22-30) mmol/L Anion Gap 15.8 H (5-15) MEQ/L BUN 34 H (9-20) mg/dL Creatinine 4.87 H (0.66-1.25) mg/dL Estimated GFR 12.1 ML/MIN Glucose 170 H (74-106) mg/dL Lactic Acid (0.4-2.0) Calcium 9.0 (8.4-10.2) mg/dL Magnesium (1.6-2.3) mg/dL Total Bilirubin 0.70 (0.2-1.3) mg/dL AST 26 (17-59) U/L ALT 14 (0-50) U/L Alkaline Phosphatase 87 (38-126) U/L Ammonia 9 (9-30) umol/L Serum Total Protein 7.4 (6.3-8.2) g/dL Albumin 4.3 (3.5-5.0) g/dL TSH 3rd Generation (0.47-4.68) mIU/L 09/09/19 09/09/19 09/09/19 Range/Units 16:14 16:06 16:00 WBC (4.0-10.5) K/mm3 RBC (4.1-5.6) M/mm3 Hgb (12.5-18.0) gm/dl Hct (42-50) % MCV (78-100) fl MCH (26-32) pg MCHC (32-36) g/dl RDW (11.5-14.0) % Plt Count (150-450) K/mm3 MPV (6-9.5) fl PT (8.83-12.87) SECONDS INR (0.8-3.0) Sodium (137-145) mmol/L Potassium (3.5-5.1) mmol/L Chloride (98-107) mmol/L Carbon Dioxide (22-30) mmol/L Anion Gap (5-15) MEQ/L BUN (9-20) mg/dL Creatinine (0.66-1.25) mg/dL Estimated GFR ML/MIN Glucose (74-106) mg/dL Lactic Acid 1.3 (0.4-2.0) Calcium (8.4-10.2) mg/dL Magnesium 1.8 (1.6-2.3) mg/dL Total Bilirubin (0.2-1.3) mg/dL AST (17-59) U/L ALT (0-50) U/L Alkaline Phosphatase (38-126) U/L Ammonia (9-30) umol/L Serum Total Protein (6.3-8.2) g/dL Albumin (3.5-5.0) g/dL TSH 3rd Generation 0.897 (0.47-4.68) mIU/L 09/09/19 Range/Units 15:54 WBC (4.0-10.5) K/mm3 RBC (4.1-5.6) M/mm3 Hgb (12.5-18.0) gm/dl Hct (42-50) % MCV (78-100) fl MCH (26-32) pg MCHC (32-36) g/dl RDW (11.5-14.0) % Plt Count (150-450) K/mm3 MPV (6-9.5) fl PT 13.5 H (8.83-12.87) SECONDS INR 1.19 (0.8-3.0) Sodium (137-145) mmol/L Potassium (3.5-5.1) mmol/L Chloride (98-107) mmol/L Carbon Dioxide (22-30) mmol/L Anion Gap (5-15) MEQ/L BUN (9-20) mg/dL Creatinine (0.66-1.25) mg/dL Estimated GFR ML/MIN Glucose (74-106) mg/dL Lactic Acid (0.4-2.0) Calcium (8.4-10.2) mg/dL Magnesium (1.6-2.3) mg/dL Total Bilirubin (0.2-1.3) mg/dL AST (17-59) U/L ALT (0-50) U/L Alkaline Phosphatase (38-126) U/L Ammonia (9-30) umol/L Serum Total Protein (6.3-8.2) g/dL Albumin (3.5-5.0) g/dL TSH 3rd Generation (0.47-4.68) mIU/L - Progress Progress: improved Discussed with : Savita Will see patient in: hospital (observation) - Departure Departure Disposition: Observation Clinical Impression: Altered mental status Condition: Stable Critical Care Time: No Referrals: LAKISHA SAGASTUME MD [Primary Care Provider] -
[2019-09-09] MEDS: Apresoline 25 MG TABLET PO SCH (21:53)
[2019-09-09] MEDS: Lopressor 50 MG PO SCH (21:53)
[2019-09-09] MEDS: Pepcid 20 MG PO SCH (21:53)
[2019-09-09] MEDS: NEURONTIN 300 MG PO SCH (21:53)
[2019-09-09] MEDS ORDERED: Calcium 500MG W/Vit D Tablet PO SCH (22:00)
[2019-09-09] MEDS ORDERED: Lantus Insulin SQ SCH (22:00)
[2019-09-09 22:42] LABS: Eosinophil 4 % (0.00-3.0); Lymphocytes 11 % (24-44); Monocyte 5 % (0.0-12.0); Neutrophils 80 % (36.-66.); Total Cells Counted 100
[2019-09-09 22:43] LABS: Platelet Estimate NORMAL (NORMAL)
[2019-09-10] MEDS: Apresoline 25 MG TABLET PO SCH (03:20)
[2019-09-10 05:35] LABS: ALBUMIN 3.7 g/dL (3.5-5.0); ANION GAP 15.8 MEQ/L (5-15); BILIRUBIN,TOTAL 0.5 mg/dL (0.2-1.3); Calcium 8.3 mg/dL (8.4-10.2); Creatinine 1 5.8 mg/dL (0.66-1.25); Potassium 4.7 mmol/L (3.5-5.1); Total Protein 6.4 g/dL (6.3-8.2)
[2019-09-10 05:53] LABS: Hematocrit 34.5 % (42-50); Hemoglobin 10.7 gm/dl (12.5-18.0); Mean Cell Volume 103.9 fl (78-100); Mean Corpuscular Hemoglobin 32.2 pg (26-32); Mean Platelet Volume 10.5 fl (6-9.5); Platelet Count 199 K/mm3 (150-450); Red Blood Count 3.32 M/mm3 (4.1-5.6); Red Cell Distribution Width 14.8 % (11.5-14.0); White Blood Count 8.4 K/mm3 (4.0-10.5)
[2019-09-10 06:06] LABS: Appearance CLEAR (CLEAR); Bilirubin NEGATIVE (NEGATIVE); Blood NEGATIVE Ery/ul (0-5); Glucose >=500 mg/dL (NEGATIVE); Ketones NEGATIVE (NEGATIVE); Leukocyte Esterase NEGATIVE (NEGATIVE); Mucus SLIGHT /HPF (NEGATIVE); Nitrite NEGATIVE (NEGATIVE); Protein,Urine Dip 100 (Negative); Specific Gravity 1.009 (1.005-1.025); Urobilinogen NEGATIVE mg/dL (0-1)
[2019-09-10 06:16] LABS: ANISOCYTOSIS 1+; Eosinophil 4 % (0.00-3.0); Lymphocytes 17 % (24-44); Monocyte 4 % (0.0-12.0); Neutrophils 75 % (36.-66.); Platelet Estimate NORMAL (NORMAL); Total Cells Counted 100
[2019-09-10] MEDS ORDERED: Lantus Insulin SQ SCH ×2 (08:00→22:00)
--- NOTE | 2019-09-10 08:42 | PCM.SSS ---
History of Present Illness - Chief Complaint Chief Complaint: Altered mental status for 1 day History of Present Illness: is a 84 year old white male who is on dialysis for end-stage renal disease he yesterday fell on it he did hit his head in and probably lost consciousness but could not get up. He seemed okay he was sent to dialysis today he normally dialyzes for about 4 hours today he did 2 hours and 15 minutes and it was noted that he seemed to have some confusion his blood sugar was okay his blood pressure was okay it was elected to send him to the ER. Timing/Duration: yesterday Severity: mild Character of Deficits: none Deficits: cannot stand, cannot walk c/o weakness - Review of Systems Constitutional: Lethargy, Weakness, No Fever, No Chills Eyes: No Symptoms Ears, Nose, & Throat: No Symptoms Respiratory: No Cough, No Short Of Breath Cardiac: No Chest Pain, No Edema, No Syncope Abdominal/Gastrointestinal: No Abdominal Pain, No Nausea, No Vomiting, No Diarrhea Genitourinary Symptoms: No Dysuria Musculoskeletal: No Back Pain, No Neck Pain Skin: No Rash Neurological: Gait Changes, No Dizziness, No Focal Weakness, No Sensory Changes Psychological: No Symptoms Endocrine: No Symptoms Hematologic/Lymphatic: No Symptoms Immunological/Allergic: No Symptoms Medications & Allergies Home Medications: Home Medication List Acetaminophen 325 mg [Tylenol 325 mg] 325 mg PO TID PRN PRN 12/01/18 [ History Confirmed 09/09/19] Cyclobenzaprine HCl 10 mg PO Q8H PRN PRN #10 tablet 12/01/18 [Rx Confirmed 09/09] Hydralazine HCl 10 mg PO TID 12/01/18 [History Confirmed 09/09/19] Hydrocodone/APAP 5-325 Tab^^^ [[place] 5-325 Tablet^^^] 1 tab PO Q6HPRN PRN #10 tablet MDD 6 12/01/18 [Rx Confirmed 09/09/19] Insulin Detemir [Levemir] 20 unit SQ BID 12/01/18 [History Confirmed 09/09/19] Levothyroxine Sodium 50 Mcg [Synthroid 50 Mcg] 50 mcg PO DAILY 12/01/18 [ History Confirmed 09/09/19] Metoprolol Tartrate 50 mg [Lopressor 50 MG] 50 mg PO BID 12/01/18 [ History Confirmed 09/09/19] Polyethylene Glycol 3350 [Miralax] 17 gm PO DAILY 12/01/18 [History Confirmed ] Ranitidine HCl [Zantac 75] 150 mg PO BID 12/01/18 [History Confirmed 09/09/19] Gabapentin 600 mg PO TID 12/03/18 [History Confirmed 09/09/19] Clonidine HCl Tts-2 Patch [Catapres TTS-2 PATCH] 0.3 mg TD WEEKLY 12/04/18 [History Confirmed 09/09/19] Calcium Acetate 2 tab PO TID 09/09/19 [History Confirmed 09/09/19] Insulin Aspart [NovoLOG Insulin] 1 unit SQ AC 09/09/19 [History Confirmed ] Rosuvastatin Calcium 5 mg PO HS 09/09/19 [History Confirmed 09/09/19] Tamsulosin HCl 0.4 mg PO DAILY 09/09/19 [History Confirmed 09/09/19] Allergies/Adverse Reactions: Allergies Allergy/AdvReac Type Severity Reaction Status Date / Time Sulfa (Sulfonamide Allergy Mild Verified 09/09/19 16:11 Antibiotics) - Past Medical History Past Medical History: Yes Neurological History: No Pertinent History ENT History: No Pertinent History Cardiac History: Hypertension Respiratory History: No Pertinent History Endocrine Medical History: Diabetes Type II, Hypothyroidism Musculoskelatal History: Arthritis GI Medical History: GERD History: Renal Disease Pyscho-Social History: No Pertinent History Male Reproductive Disorders: No Pertinent History - Past Surgical History Past Surgical History: Yes Neuro Surgical History: No Pertinent History Cardiac History: No Pertinent History Respiratory Surgery: No Pertinent History GI Surgical History: Cholecystectomy Genitourinary Surgical Hx: No Pertinent History Musculskeletal Surgical Hx: No Pertinent History Male Surgical History: Prostate Surgery - Social History Smoking Status: Never smoker Exposure to second hand smoke: No Alcohol: None Drug Use: none - Physical Exam Vital Signs: Vital Signs - 24 hr Temp Pulse Resp BP Pulse Ox 09/10/19 03:21 97.6 F 68 20 183/77 90 L 09/10/19 00:00 98.5 F 71 20 177/73 90 L 09/09/19 21:35 98.5 F 72 22 209/89 91 L 09/09/19 20:33 98.5 F 72 22 200/90 91 L 09/09/19 17:39 98 09/09/19 16:55 68 16 112/86 98 09/09/19 15:56 97.2 F 68 18 210/80 95 General Appearance: no apparent distress, alert Neurologic Exam: alert, oriented x 3, cooperative, sensation nml, confusion, No motor deficits, No sensory deficit Eye Exam: PERRL/EOMI, eyes nml inspection Ears, Nose, Throat Exam: normal ENT inspection, TMs normal, pharynx normal, moist mucous membranes Neck Exam: normal inspection, non-tender, supple, full range of motion Respiratory Exam: normal breath sounds, lungs clear, No respiratory distress Cardiovascular Exam: regular rate/rhythm, normal heart sounds, normal peripheral pulses Gastrointestinal/Abdomen Exam: soft, normal bowel sounds, No tenderness, No mass Back Exam: normal inspection, normal range of motion, No CVA tenderness, No vertebral tenderness Extremity Exam: normal inspection, normal range of motion, pelvis stable Skin Exam: normal color, warm, dry, No rash Wound Assessment: Skin/Wound Assessment Wound/Incision Assessment Start: 09/09/19 21: 16 Text: Status: Active Freq: Q6H Protocol: Document 09/10/19 02:00 MG (Rec: 09/10/19 03:11 MG [id number]) Wound/Incision Assessment Right Anterior Lower Leg Wound Assessment Shift Assessment Wound Type Abrasion Wound Stage Non Pressure Wound Drainage Amount None General Appearance Open to air Surrounding Tissue Bright Red Taut Comment Abrasion to right salazar, slight redness noted to surrounding tissue. No drainage noted. Slight edema to BLE Lymphatic Exam: No adenopathy Results - Labs Lab/Micro Results: Accuchecks Accucheck Value: 180 Lab Results-Last 24 Hours 09/09/19 09/09/19 09/09/19 Range/Units 15:54 16:00 16:06 WBC (4.0-10.5) K/mm3 RBC (4.1-5.6) M/mm3 Hgb (12.5-18.0) gm/dl Hct (42-50) % MCV (78-100) fl MCH (26-32) pg MCHC (32-36) g/dl RDW (11.5-14.0) % Plt Count (150-450) K/mm3 MPV (6-9.5) fl Segmented Neutrophils (36.-66.) % Lymphocytes (Manual) (24-44) % Monocytes (Manual) (0.0-12.0) % Eosinophils (Manual) (0.00-3.0) % Platelet Estimate (NORMAL) RBC Morphology Anisocytosis PT 13.5 H (8.83-12.87) SECONDS INR 1.19 (0.8-3.0) Sodium (137-145) mmol/L Potassium (3.5-5.1) mmol/L Chloride (98-107) mmol/L Carbon Dioxide (22-30) mmol/L Anion Gap (5-15) MEQ/L BUN (9-20) mg/dL Creatinine (0.66-1.25) mg/dL Estimated GFR ML/MIN Glucose (74-106) mg/dL Lactic Acid (0.4-2.0) Calcium (8.4-10.2) mg/dL Magnesium 1.8 (1.6-2.3) mg/dL Total Bilirubin (0.2-1.3) mg/dL AST (17-59) U/L ALT (0-50) U/L Alkaline Phosphatase (38-126) U/L Ammonia (9-30) umol/L Troponin I (0.000-0.034) ng/mL Serum Total Protein (6.3-8.2) g/dL Albumin (3.5-5.0) g/dL TSH 3rd Generation 0.897 (0.47-4.68) mIU/L Urine Color (YELLOW) Urine Appearance (CLEAR) Urine pH (5-6) Ur Specific [place] (1.005-1.025) Urine Protein (Negative) Urine Ketones (NEGATIVE) Urine Blood (0-5) Carlos/ul Urine Nitrite (NEGATIVE) Urine Bilirubin (NEGATIVE) Urine Urobilinogen (0-1) mg/dL Ur Leukocyte Esterase (NEGATIVE) Urine WBC (Auto) (0-5) /HPF Urine RBC (Auto) (0-2) /HPF Urine Mucus (Auto) (NEGATIVE) /HPF Urine Culture Reflexed (NO) Urine Glucose (NEGATIVE) mg/dL 09/09/19 09/09/19 09/09/19 Range/Units 16:14 16:50 16:50 WBC 9.0 (4.0-10.5) K/mm3 RBC 3.53 L (4.1-5.6) M/mm3 Hgb 11.3 L (12.5-18.0) gm/dl Hct 36.5 L (42-50) % MCV 103.4 H (78-100) fl MCH 32.0 (26-32) pg MCHC 31.0 L (32-36) g/dl RDW 14.9 H (11.5-14.0) % Plt Count 209 (150-450) K/mm3 MPV 10.1 H (6-9.5) fl Segmented Neutrophils 80 H (36.-66.) % Lymphocytes (Manual) 11 L (24-44) % Monocytes (Manual) 5 (0.0-12.0) % Eosinophils (Manual) 4 H (0.00-3.0) % Platelet Estimate NORMAL (NORMAL) RBC Morphology NORMAL Anisocytosis PT (8.83-12.87) SECONDS INR (0.8-3.0) Sodium 141 (137-145) mmol/L Potassium 4.2 (3.5-5.1) mmol/L Chloride 94 L (98-107) mmol/L Carbon Dioxide 35 H (22-30) mmol/L Anion Gap 15.8 H (5-15) MEQ/L BUN 34 H (9-20) mg/dL Creatinine 4.87 H (0.66-1.25) mg/dL Estimated GFR 12.1 ML/MIN Glucose 170 H (74-106) mg/dL Lactic Acid 1.3 (0.4-2.0) Calcium 9.0 (8.4-10.2) mg/dL Magnesium (1.6-2.3) mg/dL Total Bilirubin 0.70 (0.2-1.3) mg/dL AST 26 (17-59) U/L ALT 14 (0-50) U/L Alkaline Phosphatase 87 (38-126) U/L Ammonia (9-30) umol/L Troponin I (0.000-0.034) ng/mL Serum Total Protein 7.4 (6.3-8.2) g/dL Albumin 4.3 (3.5-5.0) g/dL TSH 3rd Generation (0.47-4.68) mIU/L Urine Color (YELLOW) Urine Appearance (CLEAR) Urine pH (5-6) Ur Specific [place] (1.005-1.025) Urine Protein (Negative) Urine Ketones (NEGATIVE) Urine Blood (0-5) Carlos/ul Urine Nitrite (NEGATIVE) Urine Bilirubin (NEGATIVE) Urine Urobilinogen (0-1) mg/dL Ur Leukocyte Esterase (NEGATIVE) Urine WBC (Auto) (0-5) /HPF Urine RBC (Auto) (0-2) /HPF Urine Mucus (Auto) (NEGATIVE) /HPF Urine Culture Reflexed (NO) Urine Glucose (NEGATIVE) mg/dL 09/09/19 09/09/19 09/09/19 Range/Units 20:50 23:30 Unknown WBC (4.0-10.5) K/mm3 RBC (4.1-5.6) M/mm3 Hgb (12.5-18.0) gm/dl Hct (42-50) % MCV (78-100) fl MCH (26-32) pg MCHC (32-36) g/dl RDW (11.5-14.0) % Plt Count (150-450) K/mm3 MPV (6-9.5) fl Segmented Neutrophils (36.-66.) % Lymphocytes (Manual) (24-44) % Monocytes (Manual) (0.0-12.0) % Eosinophils (Manual) (0.00-3.0) % Platelet Estimate (NORMAL) RBC Morphology Anisocytosis PT (8.83-12.87) SECONDS INR (0.8-3.0) Sodium (137-145) mmol/L Potassium (3.5-5.1) mmol/L Chloride (98-107) mmol/L Carbon Dioxide (22-30) mmol/L Anion Gap (5-15) MEQ/L BUN (9-20) mg/dL Creatinine (0.66-1.25) mg/dL Estimated GFR ML/MIN Glucose (74-106) mg/dL Lactic Acid (0.4-2.0) Calcium (8.4-10.2) mg/dL Magnesium (1.6-2.3) mg/dL Total Bilirubin (0.2-1.3) mg/dL AST (17-59) U/L ALT (0-50) U/L Alkaline Phosphatase (38-126) U/L Ammonia 9 (9-30) umol/L Troponin I 0.026 0.031 (0.000-0.034) ng/mL Serum Total Protein (6.3-8.2) g/dL Albumin (3.5-5.0) g/dL TSH 3rd Generation (0.47-4.68) mIU/L Urine Color (YELLOW) Urine Appearance (CLEAR) Urine pH (5-6) Ur Specific [place] (1.005-1.025) Urine Protein (Negative) Urine Ketones (NEGATIVE) Urine Blood (0-5) Carlos/ul Urine Nitrite (NEGATIVE) Urine Bilirubin (NEGATIVE) Urine Urobilinogen (0-1) mg/dL Ur Leukocyte Esterase (NEGATIVE) Urine WBC (Auto) (0-5) /HPF Urine RBC (Auto) (0-2) /HPF Urine Mucus (Auto) (NEGATIVE) /HPF Urine Culture Reflexed (NO) Urine Glucose (NEGATIVE) mg/dL 09/09/19 09/10/19 09/10/19 Range/Units Unknown 04:42 04:42 WBC 8.4 (4.0-10.5) K/mm3 RBC 3.32 L (4.1-5.6) M/mm3 Hgb 10.7 L (12.5-18.0) gm/dl Hct 34.5 L (42-50) % MCV 103.9 H (78-100) fl MCH 32.2 H (26-32) pg MCHC 31.0 L (32-36) g/dl RDW 14.8 H (11.5-14.0) % Plt Count 199 (150-450) K/mm3 MPV 10.5 H (6-9.5) fl Segmented Neutrophils 75 H (36.-66.) % Lymphocytes (Manual) 17 L (24-44) % Monocytes (Manual) 4 (0.0-12.0) % Eosinophils (Manual) 4 H (0.00-3.0) % Platelet Estimate NORMAL (NORMAL) RBC Morphology ABNORMAL Anisocytosis 1+ PT (8.83-12.87) SECONDS INR (0.8-3.0) Sodium 137 (137-145) mmol/L Potassium 4.7 (3.5-5.1) mmol/L Chloride 96 L (98-107) mmol/L Carbon Dioxide 31 H (22-30) mmol/L Anion Gap 15.8 H (5-15) MEQ/L BUN 43 H (9-20) mg/dL Creatinine 5.80 H (0.66-1.25) mg/dL Estimated GFR 9.9 ML/MIN Glucose 293 H (74-106) mg/dL Lactic Acid (0.4-2.0) Calcium 8.3 L (8.4-10.2) mg/dL Magnesium (1.6-2.3) mg/dL Total Bilirubin 0.50 (0.2-1.3) mg/dL AST 19 (17-59) U/L ALT 11 (0-50) U/L Alkaline Phosphatase 75 (38-126) U/L Ammonia (9-30) umol/L Troponin I 0.025 (0.000-0.034) ng/mL Serum Total Protein 6.4 (6.3-8.2) g/dL Albumin 3.7 (3.5-5.0) g/dL TSH 3rd Generation (0.47-4.68) mIU/L Urine Color (YELLOW) Urine Appearance (CLEAR) Urine pH (5-6) Ur Specific [place] (1.005-1.025) Urine Protein (Negative) Urine Ketones (NEGATIVE) Urine Blood (0-5) Carlos/ul Urine Nitrite (NEGATIVE) Urine Bilirubin (NEGATIVE) Urine Urobilinogen (0-1) mg/dL Ur Leukocyte Esterase (NEGATIVE) Urine WBC (Auto) (0-5) /HPF Urine RBC (Auto) (0-2) /HPF Urine Mucus (Auto) (NEGATIVE) /HPF Urine Culture Reflexed (NO) Urine Glucose (NEGATIVE) mg/dL 09/10/19 09/10/19 Range/Units 04:50 06:00 WBC (4.0-10.5) K/mm3 RBC (4.1-5.6) M/mm3 Hgb (12.5-18.0) gm/dl Hct (42-50) % MCV (78-100) fl MCH (26-32) pg MCHC (32-36) g/dl RDW (11.5-14.0) % Plt Count (150-450) K/mm3 MPV (6-9.5) fl Segmented Neutrophils (36.-66.) % Lymphocytes (Manual) (24-44) % Monocytes (Manual) (0.0-12.0) % Eosinophils (Manual) (0.00-3.0) % Platelet Estimate (NORMAL) RBC Morphology Anisocytosis PT (8.83-12.87) SECONDS INR (0.8-3.0) Sodium (137-145) mmol/L Potassium (3.5-5.1) mmol/L Chloride (98-107) mmol/L Carbon Dioxide (22-30) mmol/L Anion Gap (5-15) MEQ/L BUN (9-20) mg/dL Creatinine (0.66-1.25) mg/dL Estimated GFR ML/MIN Glucose (74-106) mg/dL Lactic Acid 1.1 (0.4-2.0) Calcium (8.4-10.2) mg/dL Magnesium (1.6-2.3) mg/dL Total Bilirubin (0.2-1.3) mg/dL AST (17-59) U/L ALT (0-50) U/L Alkaline Phosphatase (38-126) U/L Ammonia (9-30) umol/L Troponin I (0.000-0.034) ng/mL Serum Total Protein (6.3-8.2) g/dL Albumin (3.5-5.0) g/dL TSH 3rd Generation (0.47-4.68) mIU/L Urine Color YELLOW (YELLOW) Urine Appearance CLEAR (CLEAR) Urine pH 9.0 (5-6) Ur Specific [place] 1.009 (1.005-1.025) Urine Protein 100 (Negative) Urine Ketones NEGATIVE (NEGATIVE) Urine Blood NEGATIVE (0-5) Carlos/ul Urine Nitrite NEGATIVE (NEGATIVE) Urine Bilirubin NEGATIVE (NEGATIVE) Urine Urobilinogen NEGATIVE (0-1) mg/dL Ur Leukocyte Esterase NEGATIVE (NEGATIVE) Urine WBC (Auto) NONE (0-5) /HPF Urine RBC (Auto) NONE (0-2) /HPF Urine Mucus (Auto) SLIGHT (NEGATIVE) /HPF Urine Culture Reflexed NO (NO) Urine Glucose >=500 (NEGATIVE) mg/dL Accuchecks Accucheck Value: 180 - Radiology Impressions Radiology Exams & Impressions: Radiology Procedures Category Date Time Status CHEST 1 VIEW (PORTABLE) Stat Exams 09/09/19 16:04 Completed HEAD WITHOUT CONTRAST [CT] Stat Exams 09/09/19 15:56 Completed Assessment/Plan (1) Syncope and collapse Current Visit: Yes Status: Resolved Assessment & Plan: Chief Complaint Diagnosis Altered mental status Allergies Allergy/AdvReac Type Severity Reaction Status Date / Time Sulfa (Sulfonamide Allergy Mild Verified 09/09/19 16:11 Antibiotics) Vital Signs (Last 24 hours) Temp Pulse Resp BP Pulse Ox 09/10/19 03:21 97.6 F 68 20 183/77 90 L 09/10/19 00:00 98.5 F 71 20 177/73 90 L 09/09/19 21:35 98.5 F 72 22 209/89 91 L 09/09/19 20:33 98.5 F 72 22 200/90 91 L 09/09/19 17:39 98 09/09/19 16:55 68 16 112/86 98 09/09/19 15:56 97.2 F 68 18 210/80 95 Home Medications Medication Instructions Recorded Confirmed Last Taken Type Calcium Acetate 2 tab PO TID 09/09/19 09/09/19 Unknown History Insulin Aspart [NovoLOG 1 unit SQ AC 09/09/19 09/09/19 Unknown History Insulin] Rosuvastatin Calcium 5 mg PO HS 09/09/19 09/09/19 Unknown History Tamsulosin HCl 0.4 mg PO DAILY 09/09/19 09/09/19 Unknown History Current Medications Generic Name Dose Route Start Last Admin Trade Name Freq PRN Reason Stop Dose Admin Aspirin 81 mg 09/10/19 10:00 Ecotrin 81 Mg PO 10/10/19 09:59 DAILY ZAIN Clonidine HCl 0.2 mg 09/14/19 10:00 Catapres Tts-2 Patch TOP 10/14/19 09:59 Q7D ZAIN Famotidine 20 mg 09/09/19 22:00 09/09/19 21:53 Pepcid 20 Mg PO 10/09/19 21:59 20 mg BID ZAIN Administration Gabapentin 600 mg 09/09/19 22:00 09/09/19 21:53 Neurontin 300 Mg PO 10/09/19 21:59 600 mg TID ZAIN Administration Hydralazine HCl 100 mg 09/10/19 12:00 Apresoline 25 Mg Tablet PO 10/10/19 11:59 Q6HT ZAIN Sodium Chloride 1,000 mls @ 50 mls/hr 09/09/19 16:00 09/09/19 20:04 Sodium Chloride 0.9% 1000 Ml IV 10/09/19 15:59 50 mls/hr .Q20H ZAIN Administration Insulin Glargine 25 unit 09/10/19 08:00 Lantus Insulin SQ 10/10/19 07:59 AMINSULIN ZAIN Levothyroxine Sodium 50 mcg 09/10/19 10:00 Synthroid 50 Mcg PO 10/10/19 09:59 DAILY ZAIN Metoprolol Tartrate 50 mg 09/09/19 22:00 09/09/19 21:53 Lopressor 50 Mg PO 10/09/19 21:59 50 mg BID ZAIN Administration Simvastatin 20 mg 09/10/19 10:00 Zocor 20mg PO 10/10/19 09:59 DAILY ZAIN Tamsulosin HCl 0.4 mg 09/10/19 10:00 Flomax 0.4 Mg PO 10/10/19 09:59 DAILY ZAIN Discontinued Medications Generic Name Dose Route Start Last Admin Trade Name Freq PRN Reason Stop Dose Admin Calcium Carbonate 1 tab 09/09/19 22:00 09/09/19 17:51 Calcium 500mg W/Vit D Tablet PO 10/09/19 21:59 Not Given TID [facility] Hydralazine HCl 100 mg 09/09/19 22:00 09/10/19 03:20 Apresoline 25 Mg Tablet PO 10/09/19 21:59 100 mg Q6H ZAIN Administration Sodium Chloride Confirm 09/09/19 16:47 Sodium Chloride 0.9% 1000 Ml Administered 09/09/19 16:48 Dose 1,000 mls @ ud .ROUTE .STK-MED ONE Intake & Output (Last 24 hours) 09/07/19 09/08/19 09/09/19 09/10/19 11:59 11:59 11:59 11:59 Intake Total 580 Output Total 30 Balance 550 Weight 97.3 kg Laboratory Results (Last 24 hours) 09/10/19 09/10/19 09/10/19 06:00 04:50 04:42 WBC RBC Hgb Hct MCV MCH MCHC RDW Plt Count MPV Segmented Neutrophils Lymphocytes (Manual) Monocytes (Manual) Eosinophils (Manual) Platelet Estimate RBC Morphology Anisocytosis PT INR Sodium 137 Potassium 4.7 Chloride 96 L Carbon Dioxide 31 H Anion Gap 15.8 H BUN 43 H Creatinine 5.80 H Estimated GFR 9.9 Glucose 293 H Lactic Acid 1.1 Calcium 8.3 L Magnesium Total Bilirubin 0.50 AST 19 ALT 11 Alkaline Phosphatase 75 Ammonia Troponin I Serum Total Protein 6.4 Albumin 3.7 TSH 3rd Generation Urine Color YELLOW Urine Appearance CLEAR Urine pH 9.0 Ur Specific [place] 1.009 Urine Protein 100 Urine Ketones NEGATIVE Urine Blood NEGATIVE Urine Nitrite NEGATIVE Urine Bilirubin NEGATIVE Urine Urobilinogen NEGATIVE Ur Leukocyte Esterase NEGATIVE Urine WBC (Auto) NONE Urine RBC (Auto) NONE Urine Mucus (Auto) SLIGHT Urine Culture Reflexed NO Urine Glucose >=500 09/10/19 09/09/19 09/09/19 04:42 Unknown Unknown WBC 8.4 RBC 3.32 L Hgb 10.7 L Hct 34.5 L MCV 103.9 H MCH 32.2 H MCHC 31.0 L RDW 14.8 H Plt Count 199 MPV 10.5 H Segmented Neutrophils 75 H Lymphocytes (Manual) 17 L Monocytes (Manual) 4 Eosinophils (Manual) 4 H Platelet Estimate NORMAL RBC Morphology ABNORMAL Anisocytosis 1+ PT INR Sodium Potassium Chloride Carbon Dioxide Anion Gap BUN Creatinine Estimated GFR Glucose Lactic Acid Calcium Magnesium Total Bilirubin AST ALT Alkaline Phosphatase Ammonia 9 Troponin I 0.025 Serum Total Protein Albumin TSH 3rd Generation Urine Color Urine Appearance Urine pH Ur Specific [place] Urine Protein Urine Ketones Urine Blood Urine Nitrite Urine Bilirubin Urine Urobilinogen Ur Leukocyte Esterase Urine WBC (Auto) Urine RBC (Auto) Urine Mucus (Auto) Urine Culture Reflexed Urine Glucose 09/09/19 09/09/19 09/09/19 23:30 20:50 16:50 WBC RBC Hgb Hct MCV MCH MCHC RDW Plt Count MPV Segmented Neutrophils Lymphocytes (Manual) Monocytes (Manual) Eosinophils (Manual) Platelet Estimate RBC Morphology Anisocytosis PT INR Sodium 141 Potassium 4.2 Chloride 94 L Carbon Dioxide 35 H Anion Gap 15.8 H BUN 34 H Creatinine 4.87 H Estimated GFR 12.1 Glucose 170 H Lactic Acid Calcium 9.0 Magnesium Total Bilirubin 0.70 AST 26 ALT 14 Alkaline Phosphatase 87 Ammonia Troponin I 0.031 0.026 Serum Total Protein 7.4 Albumin 4.3 TSH 3rd Generation Urine Color Urine Appearance Urine pH Ur Specific [place] Urine Protein Urine Ketones Urine Blood Urine Nitrite Urine Bilirubin Urine Urobilinogen Ur Leukocyte Esterase Urine WBC (Auto) Urine RBC (Auto) Urine Mucus (Auto) Urine Culture Reflexed Urine Glucose 09/09/19 09/09/19 09/09/19 16:50 16:14 16:06 WBC 9.0 RBC 3.53 L Hgb 11.3 L Hct 36.5 L MCV 103.4 H MCH 32.0 MCHC 31.0 L RDW 14.9 H Plt Count 209 MPV 10.1 H Segmented Neutrophils 80 H Lymphocytes (Manual) 11 L Monocytes (Manual) 5 Eosinophils (Manual) 4 H Platelet Estimate NORMAL RBC Morphology NORMAL Anisocytosis PT INR Sodium Potassium Chloride Carbon Dioxide Anion Gap BUN Creatinine Estimated GFR Glucose Lactic Acid 1.3 Calcium Magnesium 1.8 Total Bilirubin AST ALT Alkaline Phosphatase Ammonia Troponin I Serum Total Protein Albumin TSH 3rd Generation Urine Color Urine Appearance Urine pH Ur Specific [place] Urine Protein Urine Ketones Urine Blood Urine Nitrite Urine Bilirubin Urine Urobilinogen Ur Leukocyte Esterase Urine WBC (Auto) Urine RBC (Auto) Urine Mucus (Auto) Urine Culture Reflexed Urine Glucose 09/09/19 09/09/19 16:00 15:54 WBC RBC Hgb Hct MCV MCH MCHC RDW Plt Count MPV Segmented Neutrophils Lymphocytes (Manual) Monocytes (Manual) Eosinophils (Manual) Platelet Estimate RBC Morphology Anisocytosis PT 13.5 H INR 1.19 Sodium Potassium Chloride Carbon Dioxide Anion Gap BUN Creatinine Estimated GFR Glucose Lactic Acid Calcium Magnesium Total Bilirubin AST ALT Alkaline Phosphatase Ammonia Troponin I Serum Total Protein Albumin TSH 3rd Generation 0.897 Urine Color Urine Appearance Urine pH Ur Specific [place] Urine Protein Urine Ketones Urine Blood Urine Nitrite Urine Bilirubin Urine Urobilinogen Ur Leukocyte Esterase Urine WBC (Auto) Urine RBC (Auto) Urine Mucus (Auto) Urine Culture Reflexed Urine Glucose Orders (Last 24 hours) Category Date Time Status Up With Assistance Activity 09/09/19 17:40 Active ACCUCHECK [Accucheck] ACHS Care 09/09/19 21:25 Active Code Status Order ROUTINE Care 09/09/19 17:40 Active EKG-ER Only STAT Care 09/09/19 15:54 Completed IV Care Q6H Care 09/09/19 17:40 Completed Neuro Checks Q4H Care 09/09/19 17:[address] in Observation ROUTINE Care 09/09/19 17:41 Active Telemetry q6h Care 09/09/19 17:40 Active Vital Signs Q4H Care 09/09/19 17:40 Active Implant Coordinator/Discharge Plan Cons 09/09/19 21:16 Active Fluid Restriction Diet 09/10/19 Dinner Active Nutritional Admission Screen Diet 09/09/19 21:16 Active CHEST 1 VIEW (PORTABLE) Stat Exams 09/09/19 16:04 Completed HEAD WITHOUT CONTRAST [CT] Stat Exams 09/09/19 15:56 Completed CBC W DIFF AM.LAB Lab 09/10/19 04:42 Completed CBC W DIFF Stat Lab 09/09/19 16:50 Completed CMP AM.LAB Lab 09/10/19 04:42 Completed CMP Stat Lab 09/09/19 16:50 Completed HEMOGLOBIN A1C Urgent Lab 09/10/19 04:30 Received Lactic Acid AM.LAB Lab 09/10/19 04:50 Completed Lactic Acid Stat Lab 09/09/19 16:14 Completed MAGNESIUM Stat Lab 09/09/19 16:06 Completed Manual Differential NC Routine Lab 09/10/19 04:42 Completed Manual Differential NC Stat Lab 09/09/19 16:50 Completed PROTIME WITH INR Stat Lab 09/09/19 15:54 Completed TROPONIN Q3H Lab 09/09/19 20:50 Completed TROPONIN Q3H Lab 09/09/19 23:30 Completed TSH, 3RD Generation Stat Lab 09/09/19 16:00 Completed UA W/RFX UR CULTURE Stat Lab 09/09/19 15:56 Completed Aspirin EC 81 mg [Ecotrin 81 mg] Med 09/10/19 10:00 Active 81 mg PO DAILY Calcium Carb/Vitamin D 500 mg* [Calcium 500MG W/Vit D Med 09/09/19 22:00 Discontinued Tablet] 1 tab PO TID Clonidine HCl Tts-2 Patch [Catapres TTS-2 PATCH] Med 09/14/19 10:00 Active 0.2 mg TOP Q7D Famotidine 20 mg [Pepcid 20 MG] Med 09/09/19 22:00 Active 20 mg PO BID Gabapentin 300 mg [Neurontin 300 mg] Med 09/09/19 22:00 Active 600 mg PO TID HydrALAzine HCL 25 MG TAB [Apresoline 25 MG TABLET Med 09/09/19 22:00 Discontinued *] 100 mg PO Q6H HydrALAzine HCL 25 MG TAB [Apresoline 25 MG TABLET Med 09/10/19 12:00 Active *] 100 mg PO Q6HT Insulin Glargine [Lantus Insulin] Med 09/10/19 08:00 Active 25 unit SQ AMINSULIN Levothyroxine Sodium 50 Mcg [Synthroid 50 Mcg] Med 09/10/19 10:00 Active 50 mcg PO DAILY Metoprolol Tartrate 50 mg [Lopressor 50 MG] Med 09/09/19 22:00 Active 50 mg PO BID NaCl 0.9% 1000 ml [Sodium Chloride 0.9% 1000 ML] 1,000 Med 09/09/19 16:47 Discontinued ml .ROUTE UD NaCl 0.9% 1000 ml [Sodium Chloride 0.9% 1000 ML] 1,000 Med 09/09/19 16:00 Active ml IV 50 mls/hr Simvastatin 20Mg [Zocor 20Mg] Med 09/10/19 10:00 Active 20 mg PO DAILY Tamsulosin HCl 0.4 mg [Flomax 0.4 MG] Med 09/10/19 10:00 Active 0.[address] Screen per Nursing Assess ST 09/09/19 21:16 Active Code(s): R55 - SYNCOPE AND COLLAPSE (2) Chronic renal disease, stage 5, glomerular filtration rate less than or equal to 15 mL/min/1.73 square meter Current Visit: Yes Status: Chronic Code(s): N18.5 - CHRONIC KIDNEY DISEASE, STAGE 5 (3) Degenerative disc disease, lumbar Current Visit: No Status: Chronic Code(s): M51.36 - OTHER INTERVERTEBRAL DISC DEGENERATION, LUMBAR REGION Hospital Summary - Vitals & Intake/Output Vital Signs: Vital Signs Temperature 97.6 F 09/10/19 03:21 Pulse Rate 68 09/10/19 03:21 Respiratory Rate 20 09/10/19 03:21 Blood Pressure 183/77 09/10/19 03:21 O2 Sat by Pulse Oximetry 90 L 09/10/19 03:21 Intake & Output: Intake & Output 09/07/19 09/08/19 09/09/19 09/10/19 11:59 11:59 11:59 11:59 Intake Total 580 Output Total 30 Balance 550 Weight 97.3 kg - Lab Result Diagrams: 09/10/19 04:42 09/10/19 04:42 Lab Results-Last 24 Hrs: Accuchecks Accucheck Value: 180 Lab Results-Last 24 Hours 09/09/19 09/09/19 09/09/19 Range/Units 15:54 16:00 16:06 WBC (4.0-10.5) K/mm3 RBC (4.1-5.6) M/mm3 Hgb (12.5-18.0) gm/dl Hct (42-50) % MCV (78-100) fl MCH (26-32) pg MCHC (32-36) g/dl RDW (11.5-14.0) % Plt Count (150-450) K/mm3 MPV (6-9.5) fl Segmented Neutrophils (36.-66.) % Lymphocytes (Manual) (24-44) % Monocytes (Manual) (0.0-12.0) % Eosinophils (Manual) (0.00-3.0) % Platelet Estimate (NORMAL) RBC Morphology Anisocytosis PT 13.5 H (8.83-12.87) SECONDS INR 1.19 (0.8-3.0) Sodium (137-145) mmol/L Potassium (3.5-5.1) mmol/L Chloride (98-107) mmol/L Carbon Dioxide (22-30) mmol/L Anion Gap (5-15) MEQ/L BUN (9-20) mg/dL Creatinine (0.66-1.25) mg/dL Estimated GFR ML/MIN Glucose (74-106) mg/dL Lactic Acid (0.4-2.0) Calcium (8.4-10.2) mg/dL Magnesium 1.8 (1.6-2.3) mg/dL Total Bilirubin (0.2-1.3) mg/dL AST (17-59) U/L ALT (0-50) U/L Alkaline Phosphatase (38-126) U/L Ammonia (9-30) umol/L Troponin I (0.000-0.034) ng/mL Serum Total Protein (6.3-8.2) g/dL Albumin (3.5-5.0) g/dL TSH 3rd Generation 0.897 (0.47-4.68) mIU/L Urine Color (YELLOW) Urine Appearance (CLEAR) Urine pH (5-6) Ur Specific [place] (1.005-1.025) Urine Protein (Negative) Urine Ketones (NEGATIVE) Urine Blood (0-5) Carlos/ul Urine Nitrite (NEGATIVE) Urine Bilirubin (NEGATIVE) Urine Urobilinogen (0-1) mg/dL Ur Leukocyte Esterase (NEGATIVE) Urine WBC (Auto) (0-5) /HPF Urine RBC (Auto) (0-2) /HPF Urine Mucus (Auto) (NEGATIVE) /HPF Urine Culture Reflexed (NO) Urine Glucose (NEGATIVE) mg/dL 09/09/19 09/09/19 09/09/19 Range/Units 16:14 16:50 16:50 WBC 9.0 (4.0-10.5) K/mm3 RBC 3.53 L (4.1-5.6) M/mm3 Hgb 11.3 L (12.5-18.0) gm/dl Hct 36.5 L (42-50) % MCV 103.4 H (78-100) fl MCH 32.0 (26-32) pg MCHC 31.0 L (32-36) g/dl RDW 14.9 H (11.5-14.0) % Plt Count 209 (150-450) K/mm3 MPV 10.1 H (6-9.5) fl Segmented Neutrophils 80 H (36.-66.) % Lymphocytes (Manual) 11 L (24-44) % Monocytes (Manual) 5 (0.0-12.0) % Eosinophils (Manual) 4 H (0.00-3.0) % Platelet Estimate NORMAL (NORMAL) RBC Morphology NORMAL Anisocytosis PT (8.83-12.87) SECONDS INR (0.8-3.0) Sodium 141 (137-145) mmol/L Potassium 4.2 (3.5-5.1) mmol/L Chloride 94 L (98-107) mmol/L Carbon Dioxide 35 H (22-30) mmol/L Anion Gap 15.8 H (5-15) MEQ/L BUN 34 H (9-20) mg/dL Creatinine 4.87 H (0.66-1.25) mg/dL Estimated GFR 12.1 ML/MIN Glucose 170 H (74-106) mg/dL Lactic Acid 1.3 (0.4-2.0) Calcium 9.0 (8.4-10.2) mg/dL Magnesium (1.6-2.3) mg/dL Total Bilirubin 0.70 (0.2-1.3) mg/dL AST 26 (17-59) U/L ALT 14 (0-50) U/L Alkaline Phosphatase 87 (38-126) U/L Ammonia (9-30) umol/L Troponin I (0.000-0.034) ng/mL Serum Total Protein 7.4 (6.3-8.2) g/dL Albumin 4.3 (3.5-5.0) g/dL TSH 3rd Generation (0.47-4.68) mIU/L Urine Color (YELLOW) Urine Appearance (CLEAR) Urine pH (5-6) Ur Specific [place] (1.005-1.025) Urine Protein (Negative) Urine Ketones (NEGATIVE) Urine Blood (0-5) Carlos/ul Urine Nitrite (NEGATIVE) Urine Bilirubin (NEGATIVE) Urine Urobilinogen (0-1) mg/dL Ur Leukocyte Esterase (NEGATIVE) Urine WBC (Auto) (0-5) /HPF Urine RBC (Auto) (0-2) /HPF Urine Mucus (Auto) (NEGATIVE) /HPF Urine Culture Reflexed (NO) Urine Glucose (NEGATIVE) mg/dL 09/09/19 09/09/19 09/09/19 Range/Units 20:50 23:30 Unknown WBC (4.0-10.5) K/mm3 RBC (4.1-5.6) M/mm3 Hgb (12.5-18.0) gm/dl Hct (42-50) % MCV (78-100) fl MCH (26-32) pg MCHC (32-36) g/dl RDW (11.5-14.0) % Plt Count (150-450) K/mm3 MPV (6-9.5) fl Segmented Neutrophils (36.-66.) % Lymphocytes (Manual) (24-44) % Monocytes (Manual) (0.0-12.0) % Eosinophils (Manual) (0.00-3.0) % Platelet Estimate (NORMAL) RBC Morphology Anisocytosis PT (8.83-12.87) SECONDS INR (0.8-3.0) Sodium (137-145) mmol/L Potassium (3.5-5.1) mmol/L Chloride (98-107) mmol/L Carbon Dioxide (22-30) mmol/L Anion Gap (5-15) MEQ/L BUN (9-20) mg/dL Creatinine (0.66-1.25) mg/dL Estimated GFR ML/MIN Glucose (74-106) mg/dL Lactic Acid (0.4-2.0) Calcium (8.4-10.2) mg/dL Magnesium (1.6-2.3) mg/dL Total Bilirubin (0.2-1.3) mg/dL AST (17-59) U/L ALT (0-50) U/L Alkaline Phosphatase (38-126) U/L Ammonia 9 (9-30) umol/L Troponin I 0.026 0.031 (0.000-0.034) ng/mL Serum Total Protein (6.3-8.2) g/dL Albumin (3.5-5.0) g/dL TSH 3rd Generation (0.47-4.68) mIU/L Urine Color (YELLOW) Urine Appearance (CLEAR) Urine pH (5-6) Ur Specific [place] (1.005-1.025) Urine Protein (Negative) Urine Ketones (NEGATIVE) Urine Blood (0-5) Carlos/ul Urine Nitrite (NEGATIVE) Urine Bilirubin (NEGATIVE) Urine Urobilinogen (0-1) mg/dL Ur Leukocyte Esterase (NEGATIVE) Urine WBC (Auto) (0-5) /HPF Urine RBC (Auto) (0-2) /HPF Urine Mucus (Auto) (NEGATIVE) /HPF Urine Culture Reflexed (NO) Urine Glucose (NEGATIVE) mg/dL 09/09/19 09/10/19 09/10/19 Range/Units Unknown 04:42 04:42 WBC 8.4 (4.0-10.5) K/mm3 RBC 3.32 L (4.1-5.6) M/mm3 Hgb 10.7 L (12.5-18.0) gm/dl Hct 34.5 L (42-50) % MCV 103.9 H (78-100) fl MCH 32.2 H (26-32) pg MCHC 31.0 L (32-36) g/dl RDW 14.8 H (11.5-14.0) % Plt Count 199 (150-450) K/mm3 MPV 10.5 H (6-9.5) fl Segmented Neutrophils 75 H (36.-66.) % Lymphocytes (Manual) 17 L (24-44) % Monocytes (Manual) 4 (0.0-12.0) % Eosinophils (Manual) 4 H (0.00-3.0) % Platelet Estimate NORMAL (NORMAL) RBC Morphology ABNORMAL Anisocytosis 1+ PT (8.83-12.87) SECONDS INR (0.8-3.0) Sodium 137 (137-145) mmol/L Potassium 4.7 (3.5-5.1) mmol/L Chloride 96 L (98-107) mmol/L Carbon Dioxide 31 H (22-30) mmol/L Anion Gap 15.8 H (5-15) MEQ/L BUN 43 H (9-20) mg/dL Creatinine 5.80 H (0.66-1.25) mg/dL Estimated GFR 9.9 ML/MIN Glucose 293 H (74-106) mg/dL Lactic Acid (0.4-2.0) Calcium 8.3 L (8.4-10.2) mg/dL Magnesium (1.6-2.3) mg/dL Total Bilirubin 0.50 (0.2-1.3) mg/dL AST 19 (17-59) U/L ALT 11 (0-50) U/L Alkaline Phosphatase 75 (38-126) U/L Ammonia (9-30) umol/L Troponin I 0.025 (0.000-0.034) ng/mL Serum Total Protein 6.4 (6.3-8.2) g/dL Albumin 3.7 (3.5-5.0) g/dL TSH 3rd Generation (0.47-4.68) mIU/L Urine Color (YELLOW) Urine Appearance (CLEAR) Urine pH (5-6) Ur Specific [place] (1.005-1.025) Urine Protein (Negative) Urine Ketones (NEGATIVE) Urine Blood (0-5) Carlos/ul Urine Nitrite (NEGATIVE) Urine Bilirubin (NEGATIVE) Urine Urobilinogen (0-1) mg/dL Ur Leukocyte Esterase (NEGATIVE) Urine WBC (Auto) (0-5) /HPF Urine RBC (Auto) (0-2) /HPF Urine Mucus (Auto) (NEGATIVE) /HPF Urine Culture Reflexed (NO) Urine Glucose (NEGATIVE) mg/dL 09/10/19 09/10/19 Range/Units 04:50 06:00 WBC (4.0-10.5) K/mm3 RBC (4.1-5.6) M/mm3 Hgb (12.5-18.0) gm/dl Hct (42-50) % MCV (78-100) fl MCH (26-32) pg MCHC (32-36) g/dl RDW (11.5-14.0) % Plt Count (150-450) K/mm3 MPV (6-9.5) fl Segmented Neutrophils (36.-66.) % Lymphocytes (Manual) (24-44) % Monocytes (Manual) (0.0-12.0) % Eosinophils (Manual) (0.00-3.0) % Platelet Estimate (NORMAL) RBC Morphology Anisocytosis PT (8.83-12.87) SECONDS INR (0.8-3.0) Sodium (137-145) mmol/L Potassium (3.5-5.1) mmol/L Chloride (98-107) mmol/L Carbon Dioxide (22-30) mmol/L Anion Gap (5-15) MEQ/L BUN (9-20) mg/dL Creatinine (0.66-1.25) mg/dL Estimated GFR ML/MIN Glucose (74-106) mg/dL Lactic Acid 1.1 (0.4-2.0) Calcium (8.4-10.2) mg/dL Magnesium (1.6-2.3) mg/dL Total Bilirubin (0.2-1.3) mg/dL AST (17-59) U/L ALT (0-50) U/L Alkaline Phosphatase (38-126) U/L Ammonia (9-30) umol/L Troponin I (0.000-0.034) ng/mL Serum Total Protein (6.3-8.2) g/dL Albumin (3.5-5.0) g/dL TSH 3rd Generation (0.47-4.68) mIU/L Urine Color YELLOW (YELLOW) Urine Appearance CLEAR (CLEAR) Urine pH 9.0 (5-6) Ur Specific [place] Switch 1.009 (1.005-1.025) Urine Protein 100 (Negative) Urine Ketones NEGATIVE (NEGATIVE) Urine Blood NEGATIVE (0-5) Carlos/ul Urine Nitrite NEGATIVE (NEGATIVE) Urine Bilirubin NEGATIVE (NEGATIVE) Urine Urobilinogen NEGATIVE (0-1) mg/dL Ur Leukocyte Esterase NEGATIVE (NEGATIVE) Urine WBC (Auto) NONE (0-5) /HPF Urine RBC (Auto) NONE (0-2) /HPF Urine Mucus (Auto) SLIGHT (NEGATIVE) /HPF Urine Culture Reflexed NO (NO) Urine Glucose >=500 (NEGATIVE) mg/dL Micro Results-Entire Visit: Accuchecks Accucheck Value: 180 - Radiology Exams Ordered Rad Exams-Entire Visit: Radiology Procedures Category Date Time Status CHEST 1 VIEW (PORTABLE) Stat Exams 09/09/19 16:04 Completed HEAD WITHOUT CONTRAST [CT] Stat Exams 09/09/19 15:56 Completed - Procedures and Test Procedures and Tests throughout Hospitalization: Therapy Orders & Screens 09/09/19 21:16 ST Screen per Nursing Assess Comment: Protocol Order Physician Instructions: Greater than [address] Admission Screening Reason For Exam: Triggered on Admission Diagnosis: Altered mental status CVA/Dyshpagia/Aphasia: No Cognitive Deficits: Yes: confused Dehydration/Nutrition Deficit: No Reflux: Yes Oral-Motor Difficulties: No Pneumonia: No Longterm Resident: No Total Points: 6 - Discharge Disposition: Home, Self-Care Condition: Stable Prescriptions: No Action Levothyroxine Sodium 50 Mcg [Synthroid 50 Mcg] 50 mcg PO DAILY Metoprolol Tartrate 50 mg [Lopressor 50 MG] 50 mg PO BID Ranitidine HCl [Zantac 75] 150 mg PO BID Hydralazine HCl 10 mg PO TID Acetaminophen 325 mg [Tylenol 325 mg] 325 mg PO TID PRN PRN PRN Reason: Pain Polyethylene Glycol 3350 [Miralax] 17 gm PO DAILY Insulin Detemir [Levemir] 20 unit SQ BID Hydrocodone/APAP 5-325 Tab^^^ [[place] 5-325 Tablet^^^] 1 tab PO Q6HPRN PRN # 10 tablet MDD 6 PRN Reason: Pain Cyclobenzaprine HCl 10 mg PO Q8H PRN PRN #10 tablet PRN Reason: Pain Gabapentin 600 mg PO TID Clonidine HCl Tts-2 Patch [Catapres TTS-2 PATCH] 0.3 mg TD WEEKLY Rosuvastatin Calcium 5 mg PO HS Insulin Aspart [NovoLOG Insulin] 1 unit SQ AC Tamsulosin HCl 0.4 mg PO DAILY Calcium Acetate 2 tab PO TID Follow up with: LAKISHA SAGASTUME MD [Primary Care Provider] - 1 Week
[2019-09-10] MEDS: NEURONTIN 300 MG PO SCH (09:00)
[2019-09-10] MEDS: Pepcid 20 MG PO SCH (09:01)
[2019-09-10] MEDS: Lopressor 50 MG PO SCH (09:01)
[2019-09-10] MEDS ORDERED: NON-FORMULARY ITEM (Hydrocodone/Apap 5-325 Tab^^^ 1 TAB) PO PRN (09:18)
[2019-09-10] MEDS ORDERED: Cyclobenzaprine 10 MG PO PRN (09:18)
[2019-09-10] MEDS ORDERED: TYLENOL 325 MG PO PRN (09:18)
[2019-09-10] MEDS ORDERED: NORCO 5/325 MG PO PRN (09:24)
[2019-09-10] MEDS ORDERED: MEDICATION INTERVENTION PO SCH (09:30)
[2019-09-10] MEDS ORDERED: CALCIUM ACETATE PO SCH (10:00)
[2019-09-10] MEDS ORDERED: ZOCOR 20MG PO SCH (10:00)
[2019-09-10] MEDS ORDERED: Apresoline 25 MG TABLET PO SCH ×2 (10:00→12:00)
[2019-09-10] MEDS ORDERED: Miralax Powder 17GM PACKET PO SCH (10:00)
[2019-09-10] MEDS ORDERED: ECOTRIN 81 MG PO SCH ×2 (10:00)
[2019-09-10] MEDS ORDERED: NON-FORMULARY ITEM (Hydralazine Hcl [Hydralazine Hcl] 10 MG) PO SCH (10:00)
[2019-09-10] MEDS ORDERED: SYNTHROID 50 MCG PO SCH (10:00)
[2019-09-10] MEDS ORDERED: Flomax 0.4 MG PO SCH (10:00)
[2019-09-10] MEDS ORDERED: NON-FORMULARY ITEM (Insulin Detemir [Levemir] 20 UNIT) SQ SCH (10:00)
[2019-09-10 10:33] VITALS: BP 173/72; O2SAT 91
[2019-09-10] MEDS ORDERED: NovoLOG Insulin SQ SCH (11:30)
[2019-09-10] MEDS ORDERED: NovoLOG Insulin SQ PRN (12:16)
[2019-09-10 14:11] VITALS: PULSE 72
[2019-09-10] MEDS ORDERED: Zocor 10MG PO SCH (22:00)
[2019-09-10] MEDS ORDERED: NON-FORMULARY ITEM (Rosuvastatin Calcium [Rosuvastatin Calcium] 5 MG) PO SCH (22:00)
[2019-09-14] MEDS ORDERED: Catapres TTS-2 PATCH TOP SCH (10:00)
[2019-09-14] MEDS ORDERED: Catapres-TTS 1 PATCH TOP SCH (10:00)
== END 2019-09-10 13:59 | disposition home or self-care (01) ==
LOC: ED 15:53 → MED SURG 19:07
PROVIDERS: ADMIT General Practice; ATTEND General Practice
DX: R55 Syncope and collapse (principal); I12.0 Hypertensive chronic kidney disease with stage 5 chronic kidney disease or end stage renal disease; N18.5 Chronic kidney disease, stage 5; M51.36 Other intervertebral disc degeneration, lumbar region; Z99.2 Dependence on renal dialysis; E11.9 Type 2 diabetes mellitus without complications; E03.9 Hypothyroidism, unspecified; M19.90 Unspecified osteoarthritis, unspecified site; Z79.4 Long term (current) use of insulin; Z79.899 Other long term (current) drug therapy
CPT/HCPCS: 36000; 36415; 70450; 71045; 80053; 81001; 82140; 82962; 83036; 83605; 83735; 84443; 84484; 85025; 85610; 93005; 93268; 99285; G0378; A9270-GY

== ENCOUNTER 2020-01-13 07:27 | Emergency (ER) | payer MEDICARE ==
[2020-01-13] MEDS ORDERED: Adacel Vial IM ONE ×2 (07:38→08:02)
--- NOTE | 2020-01-13 07:41 | ERPHSYRPT ---
- History of Present Illness Time Seen by Provider: 01/13/20 07:30 Source: EMS Exam Limitations: clinical condition Physician History: 84 years old male with history of end-stage renal disease on dialysis 3 times a week, diabetes mellitus, hypertension, chronic back pain is brought in the ER by EMS with a chief complaint of altered mental status and hypothermia with a temp of 92. Patient was scheduled for his routine dialysis but when dialysis services came to pick him up from his home he was found intermediate outside outside lying on concrete. Patient is confused. He has multiple abrasions in the upper and lower extremities. Fingerstick blood glucose was 52, given D10. Patient is moving all extremities, follows some of the commands but confused. History is limited. Timing/Duration: today Severity: severe Allergies/Adverse Reactions: Sulfa (Sulfonamide Antibiotics) Allergy (Mild, Verified 01/13/20 08:01) Home Medications: Acetaminophen 325 mg [Tylenol 325 mg] 325 mg PO TID PRN PRN 12/01/18 [ History] Hydralazine HCl 10 mg PO TID 12/01/18 [History] Insulin Detemir [Levemir] 20 unit SQ BID 12/01/18 [History] Levothyroxine Sodium 50 Mcg [Synthroid 50 Mcg] 50 mcg PO DAILY 12/01/18 [ History] Polyethylene Glycol 3350 [Miralax] 17 gm PO DAILY 12/01/18 [History] Clonidine HCl Tts-2 Patch [Catapres TTS-2 PATCH] 0.3 mg TD WEEKLY 12/04/18 [History] Calcium Acetate 2 tab PO TID 09/09/19 [History] Insulin Aspart [NovoLOG Insulin] 1 unit SQ AC 09/09/19 [History] Rosuvastatin Calcium 5 mg PO HS 09/09/19 [History] Calcium Acetate 1 ea DAILY 01/13/20 [History] Hx Tetanus, Diphtheria Vaccination/Date Given: Yes Hx Influenza Vaccination/Date Given: Yes Hx Pneumococcal Vaccination/Date Given: Yes Travel Risk - International Travel Have you traveled outside of the country in past 3 weeks: No Have you or anyone close to you been diagnosed with or: No Do your reside in a community with a known COVID-19 case?: Yes - Review of Systems All Other Systems: Unable due to condition - Past Medical History Pertinent Past Medical History: Yes Neurological History: No Pertinent History ENT History: No Pertinent History Cardiac History: Hypertension Respiratory History: No Pertinent History Endocrine Medical History: Diabetes Type II, Hypothyroidism Musculoskeletal History: Arthritis GI Medical History: GERD History: Renal Disease Psycho-Social History: No Pertinent History Male Reproductive Disorders: No Pertinent History - Past Surgical History Past Surgical History: Yes Neuro Surgical History: No Pertinent History Cardiac: No Pertinent History Respiratory: No Pertinent History Gastrointestinal: Cholecystectomy Genitourinary: No Pertinent History Musculoskeletal: No Pertinent History Male Surgical History: Prostate Surgery - Social History Smoking Status: Never smoker Exposure to second hand smoke: No Drug Use: none Patient Lives Alone: Yes - Nursing Vital Signs Nursing Vital Signs: Initial Vital Signs Temperature 93.4 F 01/13/20 07:48 Pulse Rate 98 H 01/13/20 07:48 Respiratory Rate 20 01/13/20 07:48 Blood Pressure 140/75 01/13/20 07:48 O2 Sat by Pulse Oximetry 87 L 01/13/20 07:48 Pain Scale Pain Intensity 0 - Physical Exam General Appearance: no apparent distress, alert Ears, Nose, Throat Exam: TMs normal, pharyngeal erythema Neck Exam: normal inspection, non-tender, supple, full range of motion Respiratory Exam: normal breath sounds, diminished breath sounds, crackles/rales , No chest tenderness Cardiovascular Exam: regular rate/rhythm, normal heart sounds Gastrointestinal/Abdomen Exam: soft, normal bowel sounds, No tenderness, No distention Back Exam: normal inspection Extremity Exam: swelling, other (Skin abrasions in upper and lower extremities) Neurologic Exam: alert, disoriented, confusion, No oriented x 3, No cooperative , No motor weakness, No aphasia Skin Exam: normal color SpO2 Interpretation: normal O2 Delivery: Room Air - Course Nursing assessment & vital signs reviewed: Yes EKG Interpreted by Me: RATE (97), NORMAL AXIS, Non-specific ST Changes Ordered Tests: Medication Summary Discontinued Medications Generic Name Dose Route Start Last Admin Trade Name Freq PRN Reason Stop Dose Admin Aspirin 300 mg 01/13/20 08:47 01/13/20 09:57 Aspirin 600 Mg MS 01/13/20 08:48 300 mg STAT ONE Administration Aspirin Confirm 01/13/20 09:54 Aspirin 600 Mg Administered 01/13/20 09:55 Dose 600 mg .ROUTE .STK-MED ONE Diphtheria/Tetanus/Acell Pertussis 0.5 ml 01/13/20 07:38 01/13/20 08:04 Adacel Vial IM 01/13/20 07:39 0.5 ml .ONCE ONE Administration Diphtheria/Tetanus/Acell Pertussis Confirm 01/13/20 08:02 Adacel Vial Administered 01/13/20 08:03 Dose 0.5 ml IM .STK-MED ONE Sodium Chloride 1,000 mls @ 100 mls/hr 01/13/20 07:45 01/13/20 08:06 Sodium Chloride 0.9% 1000 Ml IV 02/12/20 07:44 100 mls/hr .Q10H ZAIN Administration Piperacillin Sod/Tazobactam 100 mls @ 100 mls/hr 01/13/20 08:14 01/13/20 08: 35 Sod 2.25 gm/ Dextrose IV 01/13/20 09:13 100 mls/hr STAT ONE Administration Vancomycin HCl 250 mls @ 167 mls/hr 01/13/20 08:14 01/13/20 09:54 Vancomycin 1gm/ Ns 250ml IV 01/13/20 09:43 167 mls/hr STAT ONE Administration Vancomycin HCl Confirm 01/13/20 08:20 Vancomycin 1gm/ Ns 250ml Administered 01/13/20 08:21 Dose 250 mls @ ud IV .STK-MED ONE Lab/Rad Data: Laboratory Result Diagrams 01/13/20 07:40 01/13/20 07:40 Laboratory Results 01/13/20 01/13/20 01/13/20 Range/Units 08:42 08:42 08:10 WBC (4.0-10.5) K/mm3 RBC (4.1-5.6) M/mm3 Hgb (12.5-18.0) gm/dl Hct (42-50) % MCV (78-100) fl MCH (26-32) pg MCHC (32-36) g/dl RDW (11.5-14.0) % Plt Count (150-450) K/mm3 MPV (7.5-11.0) fl Segmented Neutrophils (36.-66.) % Band Neutrophils (0.0-2.0) % Lymphocytes (Manual) (24-44) % Monocytes (Manual) (0.0-12.0) % Toxic Granulation Platelet Estimate (NORMAL) RBC Morphology Anisocytosis Smear Path Review PT (8.83-12.87) SECONDS INR (0.8-3.0) Puncture Site RIGHT RADIAL pCO2 39 (35-45) mmHg pO2 82 (75-100) mmHg Base Excess -1.2 (-2.0-2.0) O2 Saturation 96.0 (94-100) g/dF ABG pH 7.39 (7.35-7.45) ABG HCO3 23.6 (22-28) ABG O2 Sat (Measured) 97.0 (95-100) % David Test YES A-a Gradient 69 a/A Ratio 0.54 Hemoglobin 12.4 Carboxyhemoglobin 1.1 (0.0-6.9) % THgb Methemoglobin 0.0 L (1.4-1.5) % Temperature 37.0 C POC O2 Flow Rate 28 % Sodium (137-145) mmol/L Potassium 5.9 H (3.5-5.1) mmol/L Chloride (98-107) mmol/L Carbon Dioxide (22-30) mmol/L Anion Gap (5-15) MEQ/L BUN (9-20) mg/dL Creatinine (0.66-1.25) mg/dL Estimated GFR ML/MIN Glucose (74-106) mg/dL Lactic Acid 1.9 (0.4-2.0) Calcium (8.4-10.2) mg/dL Magnesium (1.6-2.3) mg/dL Total Bilirubin (0.2-1.3) mg/dL AST (17-59) U/L ALT (0-50) U/L Alkaline Phosphatase (38-126) U/L Creatine Kinase (55-170) U/L Troponin I (0.000-0.034) ng/mL NT-Pro-B Natriuret Pep (0-1800) pg/mL Serum Total Protein (6.3-8.2) g/dL Albumin (3.5-5.0) g/dL Urine Color (YELLOW) Urine Appearance (CLEAR) Urine pH (5-6) Ur Specific [place] (1.005-1.025) Urine Protein (Negative) Urine Ketones (NEGATIVE) Urine Blood (0-5) Carlos/ul Urine Nitrite (NEGATIVE) Urine Bilirubin (NEGATIVE) Urine Urobilinogen (0-1) mg/dL Ur Leukocyte Esterase (NEGATIVE) Urine WBC (Auto) (0-5) /HPF Urine RBC (Auto) (0-2) /HPF U Epithel Cells (Auto) (FEW) /HPF Urine Bacteria (Auto) (NEGATIVE) /HPF Urine Culture Reflexed (NO) Urine Glucose (NEGATIVE) mg/dL Urine Opiates Level (NEGATIVE) Ur Methadone (NEGATIVE) Urine Barbiturates (NEGATIVE) Ur Phencyclidine (PCP) (NEGATIVE) Urine Amphetamine (NEGATIVE) U Benzodiazepine Level (NEGATIVE) Urine Cocaine (NEGATIVE) Urine Marijuana (THC) (NEGATIVE) Ethyl Alcohol (0-10) mg/dL Influenza Type A Ag (NEGATIVE) Influenza Type B Ag (NEGATIVE) RSV (PCR) (Negative) Group A Strep Antibody NOT DETECTED (NEGATIVE) 01/13/20 01/13/20 01/13/20 Range/Units 08:10 07:51 07:40 WBC (4.0-10.5) K/mm3 RBC (4.1-5.6) M/mm3 Hgb (12.5-18.0) gm/dl Hct (42-50) % MCV (78-100) fl MCH (26-32) pg MCHC (32-36) g/dl RDW (11.5-14.0) % Plt Count (150-450) K/mm3 MPV (7.5-11.0) fl Segmented Neutrophils (36.-66.) % Band Neutrophils (0.0-2.0) % Lymphocytes (Manual) (24-44) % Monocytes (Manual) (0.0-12.0) % Toxic Granulation Platelet Estimate (NORMAL) RBC Morphology Anisocytosis Smear Path Review PT (8.83-12.87) SECONDS INR (0.8-3.0) Puncture Site pCO2 (35-45) mmHg pO2 (75-100) mmHg Base Excess (-2.0-2.0) O2 Saturation (94-100) g/dF ABG pH (7.35-7.45) ABG HCO3 (22-28) ABG O2 Sat (Measured) (95-100) % David Test A-a Gradient a/A Ratio Hemoglobin Carboxyhemoglobin (0.0-6.9) % THgb Methemoglobin (1.4-1.5) % Temperature C POC O2 Flow Rate % Sodium (137-145) mmol/L Potassium (3.5-5.1) mmol/L Chloride (98-107) mmol/L Carbon Dioxide (22-30) mmol/L Anion Gap (5-15) MEQ/L BUN (9-20) mg/dL Creatinine (0.66-1.25) mg/dL Estimated GFR ML/MIN Glucose (74-106) mg/dL Lactic Acid (0.4-2.0) Calcium (8.4-10.2) mg/dL Magnesium (1.6-2.3) mg/dL Total Bilirubin (0.2-1.3) mg/dL AST (17-59) U/L ALT (0-50) U/L Alkaline Phosphatase (38-126) U/L Creatine Kinase (55-170) U/L Troponin I 0.156 H* (0.000-0.034) ng/mL NT-Pro-B Natriuret Pep (0-1800) pg/mL Serum Total Protein (6.3-8.2) g/dL Albumin (3.5-5.0) g/dL Urine Color YELLOW (YELLOW) Urine Appearance CLEAR (CLEAR) Urine pH 8.0 (5-6) Ur Specific [place] 1.015 (1.005-1.025) Urine Protein 100 (Negative) Urine Ketones NEGATIVE (NEGATIVE) Urine Blood SMALL (0-5) Carlos/ul Urine Nitrite NEGATIVE (NEGATIVE) Urine Bilirubin NEGATIVE (NEGATIVE) Urine Urobilinogen NEGATIVE (0-1) mg/dL Ur Leukocyte Esterase NEGATIVE (NEGATIVE) Urine WBC (Auto) NONE (0-5) /HPF Urine RBC (Auto) 3-5 (0-2) /HPF U Epithel Cells (Auto) NONE (FEW) /HPF Urine Bacteria (Auto) RARE (NEGATIVE) /HPF Urine Culture Reflexed YES (NO) Urine Glucose 150 (NEGATIVE) mg/dL Urine Opiates Level (NEGATIVE) Ur Methadone (NEGATIVE) Urine Barbiturates (NEGATIVE) Ur Phencyclidine (PCP) (NEGATIVE) Urine Amphetamine (NEGATIVE) U Benzodiazepine Level (NEGATIVE) Urine Cocaine (NEGATIVE) Urine Marijuana (THC) (NEGATIVE) Ethyl Alcohol (0-10) mg/dL Influenza Type A Ag NEGATIVE (NEGATIVE) Influenza Type B Ag NEGATIVE (NEGATIVE) RSV (PCR) NEGATIVE (Negative) Group A Strep Antibody (NEGATIVE) 01/13/20 01/13/20 01/13/20 Range/Units 07:40 07:40 07:40 WBC 26.5 H* (4.0-10.5) K/mm3 RBC 3.84 L (4.1-5.6) M/mm3 Hgb 12.3 L (12.5-18.0) gm/dl Hct 39.5 L (42-50) % MCV 102.9 H (78-100) fl MCH 32.0 (26-32) pg MCHC 31.1 L (32-36) g/dl RDW 15.2 H (11.5-14.0) % Plt Count 215 (150-450) K/mm3 MPV 10.1 (7.5-11.0) fl Segmented Neutrophils 85 H (36.-66.) % Band Neutrophils 9 H (0.0-2.0) % Lymphocytes (Manual) 1 L (24-44) % Monocytes (Manual) 5 (0.0-12.0) % Toxic Granulation 1+ Platelet Estimate NORMAL (NORMAL) RBC Morphology ABNORMAL Anisocytosis 1+ Smear Path Review PT 15.1 H (8.83-12.87) SECONDS INR 1.33 (0.8-3.0) Puncture Site pCO2 (35-45) mmHg pO2 (75-100) mmHg Base Excess (-2.0-2.0) O2 Saturation (94-100) g/dF ABG pH (7.35-7.45) ABG HCO3 (22-28) ABG O2 Sat (Measured) (95-100) % David Test A-a Gradient a/A Ratio Hemoglobin Carboxyhemoglobin (0.0-6.9) % THgb Methemoglobin (1.4-1.5) % Temperature C POC O2 Flow Rate % Sodium 143 (137-145) mmol/L Potassium 5.8 H (3.5-5.1) mmol/L Chloride 100 (98-107) mmol/L Carbon Dioxide 25 (22-30) mmol/L Anion Gap 23.4 H (5-15) MEQ/L BUN 59 H (9-20) mg/dL Creatinine 7.99 H (0.66-1.25) mg/dL Estimated GFR 6.9 ML/MIN Glucose 136 H (74-106) mg/dL Lactic Acid (0.4-2.0) Calcium 8.9 (8.4-10.2) mg/dL Magnesium 2.0 (1.6-2.3) mg/dL Total Bilirubin 0.70 (0.2-1.3) mg/dL AST 40 (17-59) U/L ALT 18 (0-50) U/L Alkaline Phosphatase 104 (38-126) U/L Creatine Kinase 486 H (55-170) U/L Troponin I (0.000-0.034) ng/mL NT-Pro-B Natriuret Pep 77286 H (0-1800) pg/mL Serum Total Protein 7.2 (6.3-8.2) g/dL Albumin 4.4 (3.5-5.0) g/dL Urine Color (YELLOW) Urine Appearance (CLEAR) Urine pH (5-6) Ur Specific [place] (1.005-1.025) Urine Protein (Negative) Urine Ketones (NEGATIVE) Urine Blood (0-5) Carlos/ul Urine Nitrite (NEGATIVE) Urine Bilirubin (NEGATIVE) Urine Urobilinogen (0-1) mg/dL Ur Leukocyte Esterase (NEGATIVE) Urine WBC (Auto) (0-5) /HPF Urine RBC (Auto) (0-2) /HPF U Epithel Cells (Auto) (FEW) /HPF Urine Bacteria (Auto) (NEGATIVE) /HPF Urine Culture Reflexed (NO) Urine Glucose (NEGATIVE) mg/dL Urine Opiates Level (NEGATIVE) Ur Methadone (NEGATIVE) Urine Barbiturates (NEGATIVE) Ur Phencyclidine (PCP) (NEGATIVE) Urine Amphetamine (NEGATIVE) U Benzodiazepine Level (NEGATIVE) Urine Cocaine (NEGATIVE) Urine Marijuana (THC) (NEGATIVE) Ethyl Alcohol < 10 (0-10) mg/dL Influenza Type A Ag (NEGATIVE) Influenza Type B Ag (NEGATIVE) RSV (PCR) (Negative) Group A Strep Antibody (NEGATIVE) 01/13/20 Range/Units 07:37 WBC (4.0-10.5) K/mm3 RBC (4.1-5.6) M/mm3 Hgb (12.5-18.0) gm/dl Hct (42-50) % MCV (78-100) fl MCH (26-32) pg MCHC (32-36) g/dl RDW (11.5-14.0) % Plt Count (150-450) K/mm3 MPV (7.5-11.0) fl Segmented Neutrophils (36.-66.) % Band Neutrophils (0.0-2.0) % Lymphocytes (Manual) (24-44) % Monocytes (Manual) (0.0-12.0) % Toxic Granulation Platelet Estimate (NORMAL) RBC Morphology Anisocytosis Smear Path Review PT (8.83-12.87) SECONDS INR (0.8-3.0) Puncture Site pCO2 (35-45) mmHg pO2 (75-100) mmHg Base Excess (-2.0-2.0) O2 Saturation (94-100) g/dF ABG pH (7.35-7.45) ABG HCO3 (22-28) ABG O2 Sat (Measured) (95-100) % David Test A-a Gradient a/A Ratio Hemoglobin Carboxyhemoglobin (0.0-6.9) % THgb Methemoglobin (1.4-1.5) % Temperature C POC O2 Flow Rate % Sodium (137-145) mmol/L Potassium (3.5-5.1) mmol/L Chloride (98-107) mmol/L Carbon Dioxide (22-30) mmol/L Anion Gap (5-15) MEQ/L BUN (9-20) mg/dL Creatinine (0.66-1.25) mg/dL Estimated GFR ML/MIN Glucose (74-106) mg/dL Lactic Acid (0.4-2.0) Calcium (8.4-10.2) mg/dL Magnesium (1.6-2.3) mg/dL Total Bilirubin (0.2-1.3) mg/dL AST (17-59) U/L ALT (0-50) U/L Alkaline Phosphatase (38-126) U/L Creatine Kinase (55-170) U/L Troponin I (0.000-0.034) ng/mL NT-Pro-B Natriuret Pep (0-1800) pg/mL Serum Total Protein (6.3-8.2) g/dL Albumin (3.5-5.0) g/dL Urine Color (YELLOW) Urine Appearance (CLEAR) Urine pH (5-6) Ur Specific [place] (1.005-1.025) Urine Protein (Negative) Urine Ketones (NEGATIVE) Urine Blood (0-5) Carlos/ul Urine Nitrite (NEGATIVE) Urine Bilirubin (NEGATIVE) Urine Urobilinogen (0-1) mg/dL Ur Leukocyte Esterase (NEGATIVE) Urine WBC (Auto) (0-5) /HPF Urine RBC (Auto) (0-2) /HPF U Epithel Cells (Auto) (FEW) /HPF Urine Bacteria (Auto) (NEGATIVE) /HPF Urine Culture Reflexed (NO) Urine Glucose (NEGATIVE) mg/dL Urine Opiates Level NEGATIVE (NEGATIVE) Ur Methadone NEGATIVE (NEGATIVE) Urine Barbiturates NEGATIVE (NEGATIVE) Ur Phencyclidine (PCP) NEGATIVE (NEGATIVE) Urine Amphetamine NEGATIVE (NEGATIVE) U Benzodiazepine Level NEGATIVE (NEGATIVE) Urine Cocaine NEGATIVE (NEGATIVE) Urine Marijuana (THC) NEGATIVE (NEGATIVE) Ethyl Alcohol (0-10) mg/dL Influenza Type A Ag (NEGATIVE) Influenza Type B Ag (NEGATIVE) RSV (PCR) (Negative) Group A Strep Antibody (NEGATIVE) - Progress Progress: improved, re-examined Progress Note: 01/13/20 08:36 Patient was confused on presentation. Moving all his extremities. Unknown downtime. Accu-Chek is improved in 160s. Patient is more alert and talking since presentation. I have obtained CT head which is negative for any acute findings. Chest x-ray showed right lower lobe pneumonia. Started on broad- spectrum antibiotics Zosyn and Vanco. He has a white count of 26K. Has a potassium of 5.8 with creatinine of 7.9 and troponin 0.16. I believe this is secondary to his dialysis and EKG did not show any acute T wave elevations or other ischemic changes. Has mildly elevated CK level because of the fall and 400s. Discussed with Dr. Sagastume, since patient needs dialysis and I have discussed with Dr. Stovall who recommended transfer to [facility]. Patient core temperature is currently 97 after placing an Hannah hugger. Will give gentle hydration. 01/13/20 08:40 Discussed with : Savita, Other ( electromechanical assembly technician ) Counseled pt/family regarding: lab results, diagnosis, rad results - Departure Departure Disposition: Transfer Clinical Impression: Chronic renal disease, stage 5, glomerular filtration rate less than or equal to 15 mL/min/1.73 square meter Altered mental status Qualifiers: Altered mental status type: unspecified Qualified Code(s): R41.82 - Altered mental status, unspecified Sepsis Qualifiers: Sepsis type: sepsis due to unspecified organism Sepsis acute organ dysfunction status: unspecified Qualified Code(s): A41.9 - Sepsis, unspecified organism Pneumonia Qualifiers: Pneumonia type: due to unspecified organism Laterality: right Lung location: lower lobe of lung Qualified Code(s): J18.9 - Pneumonia, unspecified organism Condition: Fair Critical Care Time: Yes Critical Care Time(excluding separately billable procedures): Critical 30-74 mins Referrals: LAKISHA SAGASTUME MD [Primary Care Provider] -
[2020-01-13] MEDS ORDERED: Sodium Chloride 0.9% 1000 ML 1,000 ML IV SCH (07:45)
--- NOTE | 2020-01-13 08:00 | XRAY ---
Indication: Found on floor. Confusion. Multiple contiguous axial images obtained through the head without contrast. Comparison: September 09, 2019. Several images are slightly degraded by motion artifact. There is again age-appropriate global atrophy and mild periventricular degenerative micro-ischemia bilaterally. No acute intracranial hemorrhage, abnormal extra-axial fluid collection, or mass effect. Fourth ventricle is midline without hydrocephalus. Bony calvarium grossly intact. Paranasal sinuses and mastoid air cells are clear. Impression: Motion artifact. Grossly stable nonacute senile brain.
[2020-01-13 08:01] LABS: Hematocrit 39.5 % (42-50); Hemoglobin 12.3 gm/dl (12.5-18.0); Mean Cell Volume 102.9 fl (78-100); Mean Corpuscular Hgb Concent. 31.1 g/dl (32-36); Mean Platelet Volume 10.1 fl (7.5-11.0); Platelet Count 215 K/mm3 (150-450); Red Blood Count 3.84 M/mm3 (4.1-5.6); Red Cell Distribution Width 15.2 % (11.5-14.0)
--- NOTE | 2020-01-13 08:01 | XRAY ---
Indication: Low core temperature. Confusion. Comparison: September 09, 2019. Portable chest demonstrates new minimal right base infiltrate versus atelectasis. Stable cardiomegaly and incidental calcified granulomas. Bony thorax intact again with mild osteopenia and degenerative changes.
[2020-01-13 08:12] LABS: INR 1.33 (0.8-3.0); PROTIME 15.1 SECONDS (8.83-12.87); White Blood Count 26.5 K/mm3 (4.0-10.5)
[2020-01-13 08:14] LABS: Appearance CLEAR (CLEAR); Bacteria RARE /HPF (NEGATIVE); Bilirubin NEGATIVE (NEGATIVE); Blood SMALL Ery/ul (0-5); Glucose 150 mg/dL (NEGATIVE); Ketones NEGATIVE (NEGATIVE); Leukocyte Esterase NEGATIVE (NEGATIVE); Nitrite NEGATIVE (NEGATIVE); Protein,Urine Dip 100 (Negative); Specific Gravity 1.015 (1.005-1.025); Urobilinogen NEGATIVE mg/dL (0-1)
[2020-01-13] MEDS ORDERED: Vancomycin 1GM/ Ns 250ML*** 250 ML IV ONE ×2 (08:14→08:20)
[2020-01-13] MEDS ORDERED: Zosyn 2.25 GM 2.25 GM in D5w 100ML Mini Bag 100 ML 100 ML IV ONE (08:14)
[2020-01-13 08:29] LABS: Amphetamine,Urine NEGATIVE (NEGATIVE); Barbiturate,Urine NEGATIVE (NEGATIVE); Benzodiazepine,Urine NEGATIVE (NEGATIVE); Cocaine,Urine NEGATIVE (NEGATIVE); Methadone,Urine NEGATIVE (NEGATIVE); Opiate,Urine NEGATIVE (NEGATIVE); PCP,Urine NEGATIVE (NEGATIVE); THC,Urine NEGATIVE (NEGATIVE)
[2020-01-13 08:33] LABS: ALBUMIN 4.4 g/dL (3.5-5.0); ALKALINE PHOSPHATASE 104 U/L (38-126); ANION GAP 23.4 MEQ/L (5-15); BLOOD UREA NITROGEN 59 mg/dL (9-20); CHLORIDE 100 mmol/L (98-107); CK-Creatinine Phosphokinase 486 U/L (55-170); Calcium 8.9 mg/dL (8.4-10.2); Carbon Dioxide 25 mmol/L (22-30); Creatinine 1 7.99 mg/dL (0.66-1.25); Glucose 136 mg/dL (74-106); Potassium 5.8 mmol/L (3.5-5.1); SGOT/AST 40 U/L (17-59); SGPT/ALT 18 U/L (0-50); SODIUM 143 mmol/L (137-145); Total Protein 7.2 g/dL (6.3-8.2)
[2020-01-13 08:35] LABS: ETHYL ALCOHOL < 10 mg/dL (0-10)
[2020-01-13] MEDS ORDERED: ASPIRIN 600 MG PR ONE (08:47)
[2020-01-13 08:48] LABS: A-aADO2 69; ABG HEMOGLOBIN 12.4; ABG POTASSIUM 5.9 (3.5-5.1); ARTERIAL BLOOD GAS BASE EXCESS -1.2 (-2.0-2.0); ARTERIAL BLOOD GAS FIO2 28 %; ARTERIAL BLOOD GAS PCO2 39 mmHg (35-45); ARTERIAL BLOOD GAS PO2 82 mmHg (75-100); ARTERIAL BLOOD GAS pH 7.39 (7.35-7.45); CARBOXYHEMOGLOBIN 1.1 % THgb (0.0-6.9); HCO3- 23.6 (22-28); paO2 pAO1 0.54
[2020-01-13 08:49] LABS: ABG SITE RIGHT RADIAL; ALLEN TEST OK? YES
[2020-01-13 08:52] LABS: INFLUENZA A NEGATIVE (NEGATIVE); INFLUENZA B NEGATIVE (NEGATIVE); RESPIRATORY SYNCTIAL VIRUS NEGATIVE (Negative)
[2020-01-13 08:53] LABS: NT PRO BNP 50900 pg/mL (0-1800)
[2020-01-13 09:15] LABS: ANISOCYTOSIS 1+; BAND 9 % (0.0-2.0); Lymphocytes 1 % (24-44); Monocyte 5 % (0.0-12.0); Neutrophils 85 % (36.-66.); Platelet Estimate NORMAL (NORMAL); Total Cells Counted 100; Toxic Granulation 1+
[2020-01-13 09:53] VITALS: BP 198/82; PULSE 87; O2SAT 97
[2020-01-13] MEDS ORDERED: ASPIRIN 600 MG ONE (09:54)
== END 2020-01-13 10:42 | disposition short-term general hospital (02) ==
LOC: ED 07:27
DX: I12.0 Hypertensive chronic kidney disease with stage 5 chronic kidney disease or end stage renal disease (principal); N18.5 Chronic kidney disease, stage 5; R41.82 Altered mental status, unspecified; A41.9 Sepsis, unspecified organism; J18.9 Pneumonia, unspecified organism; Z99.2 Dependence on renal dialysis; T68.XXXA Hypothermia, initial encounter; E11.9 Type 2 diabetes mellitus without complications; E03.9 Hypothyroidism, unspecified; K21.9 Gastro-esophageal reflux disease without esophagitis
CPT/HCPCS: 70450; 80053; 80307; 81001; 82375; 82550; 82803; 82962; 83605; 83735; 83880; 84484; 85025; 85610; 87040; 87086; 87631; 87651; 90471; 93005; 93041; 96360; 96365; 96367; 99291; G0480; 36415; 36600; 71045; 90715; 96374; 99285; J2543; J3370; A9270-GY

== ENCOUNTER 2021-04-26 12:17 | Observation (INO) | payer MEDICARE ==
[2021-04-26 12:51] LABS: Hematocrit 40.3 % (42-50); Hemoglobin 12.7 gm/dl (12.5-18.0); Mean Corpuscular Hemoglobin 32.2 pg (26-32); Mean Corpuscular Hgb Concent. 31.5 g/dl (32-36); Platelet Count 170 K/mm3 (150-450); Red Blood Count 3.95 M/mm3 (4.1-5.6); Red Cell Distribution Width 13.8 % (11.5-14.0); White Blood Count 10.7 K/mm3 (4.0-10.5)
[2021-04-26 13:07] LABS: ANION GAP 17.6 MEQ/L (5-15); BILIRUBIN,TOTAL 0.8 mg/dL (0.2-1.3); Calcium 9.8 mg/dL (8.4-10.2); Creatinine 1 4.39 mg/dL (0.66-1.25); EST GLOMERULAR FILTRATION RATE 13.7 ML/MIN; MAGNESIUM 1.7 mg/dL (1.6-2.3); Potassium 4.3 mmol/L (3.5-5.1); Total Protein 8.3 g/dL (6.3-8.2)
--- NOTE | 2021-04-26 13:24 | ERPHSYRPT ---
- History of Present Illness Time Seen by Provider: 04/26/21 12:25 Source: patient Exam Limitations: no limitations Patient Subjective Stated Complaint: PT HERE FOR WEAKNESS AFTER DIALYSIS TODAY, HE DOESN NOT CO OF ANY OTHER PROBLEMS Triage Nursing Assessment: PT ARRIVED PER AMBULANCE ALERT, FACE MASK IN PLACE, RESP EASY,CHEST CLEAR, ABD SOFT, HAD FISTULA TO RIGHT ARM WITH STRONG BRUIE Physician History: Patient is a 85-year-old male presents to our ED via EMS from hemodialysis for evaluation of generalized weakness post dialysis session. Patient receives hemodialysis Monday. He produces little urine. Patient completed his dialysis session today. He states after his session he felt weak. Patient had no pain. No nausea vomiting or diaphoresis. No chest pain. Patient tried ambulating but felt too weak to to ambulate. Staff called 911 patient brought to our ED. Patient otherwise well. He has no complaints. Symptoms are mild to moderate in intensity. No specific worsening improving factors. Patient voices no other complaints at this time. Right upper extremity fistula intact. Timing/Duration: today Severity: mild Modifying Factors: Improves With: nothing Associated Symptoms: denies symptoms, No nausea, No vomiting, No abdominal pain, No shortness of breath, No heartburn, No diaphoresis, No chest pain, No fever, No headaches, No loss of appetite, No syncope, No seizure, No weakness, No other Allergies/Adverse Reactions: Sulfa (Sulfonamide Antibiotics) Allergy (Mild, Verified 04/26/21 12:28) Home Medications: Acetaminophen 325 mg [Tylenol 325 mg] 325 mg PO TID PRN PRN 12/01/18 [History] Hydralazine HCl 10 mg PO TID 12/01/18 [History] Insulin Detemir [Levemir] 20 unit SQ BID 12/01/18 [History] Levothyroxine Sodium 50 Mcg [Synthroid 50 Mcg] 50 mcg PO DAILY 12/01/18 [History] Polyethylene Glycol 3350 [Miralax] 17 gm PO DAILY 12/01/18 [History] Clonidine HCl Tts-2 Patch [Catapres TTS-2 PATCH] 0.3 mg TD WEEKLY 12/04/18 [History] Calcium Acetate 2 tab PO TID 09/09/19 [History] Insulin Aspart [NovoLOG Insulin] 1 unit SQ AC 09/09/19 [History] Rosuvastatin Calcium 5 mg PO HS 09/09/19 [History] Calcium Acetate 1 ea DAILY 01/13/20 [History] Hx Tetanus, Diphtheria Vaccination/Date Given: Yes Hx Influenza Vaccination/Date Given: Yes Hx Pneumococcal Vaccination/Date Given: Yes Immunizations Up to Date: Yes Travel Risk - International Travel Have you traveled outside of the country in past 3 weeks: No - Coronavirus Screening Are you exhibiting any of the following symptoms?: No Symptoms: Shortness of Breath - Vaccine Status Have you recieved a Covid-19 vaccination: Yes [place] Regulator: Moderna - Vaccination Dates Date of 2cond Vaccination (if applicable): ? - Review of Systems Constitutional: No Symptoms, No Fever, No Chills Eyes: No Symptoms Ears, Nose, & Throat: No Symptoms Respiratory: No Symptoms, No Cough, No Dyspnea Cardiac: No Symptoms, No Chest Pain, No Edema, No Syncope Abdominal/Gastrointestinal: No Symptoms, No Abdominal Pain, No Nausea, No Vomiting, No Diarrhea Genitourinary Symptoms: No Symptoms, No Dysuria Musculoskeletal: No Symptoms, No Back Pain, No Neck Pain Skin: No Symptoms, No Rash Neurological: No Symptoms, No Dizziness, No Focal Weakness, No Sensory Changes Psychological: No Symptoms Endocrine: No Symptoms Hematologic/Lymphatic: No Symptoms Immunological/Allergic: No Symptoms All Other Systems: Reviewed and Negative - Past Medical History Pertinent Past Medical History: Yes Neurological History: No Pertinent History ENT History: No Pertinent History Cardiac History: Hypertension Respiratory History: No Pertinent History Endocrine Medical History: Diabetes Type II, Hypothyroidism Musculoskeletal History: Arthritis GI Medical History: GERD History: Renal Disease Psycho-Social History: No Pertinent History Male Reproductive Disorders: No Pertinent History - Past Surgical History Past Surgical History: Yes Neuro Surgical History: No Pertinent History Cardiac: No Pertinent History Respiratory: No Pertinent History Gastrointestinal: Cholecystectomy Genitourinary: No Pertinent History Musculoskeletal: No Pertinent History Male Surgical History: Prostate Surgery - Social History Smoking Status: Never smoker Exposure to second hand smoke: No Drug Use: none Patient Lives Alone: Yes - Nursing Vital Signs Nursing Vital Signs: Initial Vital Signs O2 Sat by Pulse Oximetry 93 L 04/26/21 12:18 Pain Scale Pain Intensity 0 - Physical Exam General Appearance: no apparent distress, alert Eye Exam: PERRL/EOMI, eyes nml inspection Ears, Nose, Throat Exam: normal ENT inspection, TMs normal, pharynx normal, moist mucous membranes, other (Foreign body left ear. Patient states he has been experiencing ear pain for the past 2 weeks.) Neck Exam: normal inspection, non-tender, supple, full range of motion Respiratory Exam: normal breath sounds, lungs clear, No respiratory distress Cardiovascular Exam: regular rate/rhythm, normal heart sounds, normal peripheral pulses Gastrointestinal/Abdomen Exam: soft, normal bowel sounds, No tenderness, No mass Back Exam: normal inspection, normal range of motion, No CVA tenderness, No vertebral tenderness Extremity Exam: normal inspection, normal range of motion, pelvis stable Neurologic Exam: alert, oriented x 3, cooperative, normal mood/affect, nml cerebellar function, nml station & gait, sensation nml, No motor deficits Skin Exam: normal color, warm, dry, No rash Lymphatic Exam: No adenopathy SpO2 Interpretation: normal SpO2: 95 O2 Delivery: Room Air - Course Nursing assessment & vital signs reviewed: Yes EKG Interpreted by Me: RATE (72), A-fib, NORMAL AXIS, NORMAL INTERVALS Ordered Tests: Active Orders 24 hr Category Date Time Status Firearms Inspector STAT Care 04/26/21 12:22 Active EKG-ER Only STAT Care 04/26/21 12:21 Active IV Insertion STAT Care 04/26/21 12:21 Active Pulse Oximetry (ED) STAT Care 04/26/21 12:21 Active HEAD WITHOUT CONTRAST [CT] Stat Exams 04/26/21 14:22 Completed CBC W DIFF Stat Lab 04/26/21 12:40 Completed CMP Stat Lab 04/26/21 12:40 Completed MAGNESIUM Stat Lab 04/26/21 12:40 Completed Manual Differential NC Stat Lab 04/26/21 12:40 Completed TROPONIN Q3H Lab 04/26/21 12:40 Completed TROPONIN Q3H Lab 04/26/21 15:28 Completed TROPONIN Q3H Lab 04/26/21 18:30 Ordered TROPONIN Q3H Lab 04/26/21 21:30 Ordered TROPONIN Q3H Lab 04/27/21 00:30 Ordered Transfer Order Routine Transfer 04/26/21 Ordered Lab/Rad Data: Laboratory Result Diagrams 04/26/21 12:40 04/26/21 12:40 Laboratory Results 04/26/21 04/26/21 04/26/21 Range/Units 16:01 15:28 12:40 WBC (4.0-10.5) K/mm3 RBC (4.1-5.6) M/mm3 Hgb (12.5-18.0) gm/dl Hct (42-50) % MCV (78-100) fl MCH (26-32) pg MCHC (32-36) g/dl RDW (11.5-14.0) % Plt Count (150-450) K/mm3 MPV (7.5-11.0) fl Segmented Neutrophils (36.-66.) % Lymphocytes (Manual) (24-44) % Monocytes (Manual) (0.0-12.0) % Platelet Estimate (NORMAL) RBC Morphology Sodium (137-145) mmol/L Potassium (3.5-5.1) mmol/L Chloride (98-107) mmol/L Carbon Dioxide (22-30) mmol/L Anion Gap (5-15) MEQ/L BUN (9-20) mg/dL Creatinine (0.66-1.25) mg/dL Estimated GFR ML/MIN Glucose (74-106) mg/dL Calcium (8.4-10.2) mg/dL Magnesium (1.6-2.3) mg/dL Total Bilirubin (0.2-1.3) mg/dL AST (17-59) U/L ALT (0-50) U/L Alkaline Phosphatase (38-126) U/L Troponin I 0.173 H* 0.208 H* (0.000-0.034) ng/mL Serum Total Protein (6.3-8.2) g/dL Albumin (3.5-5.0) g/dL SARS-CoV-2 (PCR) NEGATIVE (NEGATIVE) 04/26/21 04/26/21 Range/Units 12:40 12:40 WBC 10.7 H (4.0-10.5) K/mm3 RBC 3.95 L (4.1-5.6) M/mm3 Hgb 12.7 (12.5-18.0) gm/dl Hct 40.3 L (42-50) % MCV 102.0 H (78-100) fl MCH 32.2 H (26-32) pg MCHC 31.5 L (32-36) g/dl RDW 13.8 (11.5-14.0) % Plt Count 170 (150-450) K/mm3 MPV 10.0 (7.5-11.0) fl Segmented Neutrophils 85 H (36.-66.) % Lymphocytes (Manual) 14 L (24-44) % Monocytes (Manual) 1 (0.0-12.0) % Platelet Estimate NORMAL (NORMAL) RBC Morphology NORMAL Sodium 139 (137-145) mmol/L Potassium 4.3 (3.5-5.1) mmol/L Chloride 89 L (98-107) mmol/L Carbon Dioxide 37 H (22-30) mmol/L Anion Gap 17.6 H (5-15) MEQ/L BUN 23 H (9-20) mg/dL Creatinine 4.39 H (0.66-1.25) mg/dL Estimated GFR 13.7 ML/MIN Glucose 115 H (74-106) mg/dL Calcium 9.8 (8.4-10.2) mg/dL Magnesium 1.7 (1.6-2.3) mg/dL Total Bilirubin 0.80 (0.2-1.3) mg/dL AST 28 (17-59) U/L ALT 21 (0-50) U/L Alkaline Phosphatase 98 (38-126) U/L Troponin I (0.000-0.034) ng/mL Serum Total Protein 8.3 H (6.3-8.2) g/dL Albumin 5.0 (3.5-5.0) g/dL SARS-CoV-2 (PCR) (NEGATIVE) - Progress Progress: improved Progress Note: Case discussed with Dr. Sagastume who accepts admission to observation. Covid test pending. 04/26/21 15:28 Covid test negative. Plan of care discussed with patient. He agrees to admission [facility] for further evaluation and treatment. 04/26/21 17:28 Discussed with : Savita Will see patient in: hospital (observation) Counseled pt/family regarding: lab results, diagnosis, rad results - Departure Departure Disposition: Home Clinical Impression: High anion gap metabolic acidosis, Elevated troponin, Generalized weakness, Foreign body in left ear Condition: Stable Critical Care Time: No Referrals: LAKISHA SAGASTUME MD [Primary Care Provider] -
[2021-04-26 13:51] LABS: Lymphocytes 14 % (24-44); Monocyte 1 % (0.0-12.0); Neutrophils 85 % (36.-66.); Platelet Estimate NORMAL (NORMAL); Total Cells Counted 100
--- NOTE | 2021-04-26 15:52 | XRAY ---
Exam: CT of the head without IV contrast from 04/26/2021. CTDI: 53.92 mGy Comparison: CT of the head from 01/13/2020. Indication: 85-year-old male with weakness and earache for 1 week. Technique: Non-IV contrast axial images were obtained through the brain. Reconstructed coronal and sagittal images were created and reviewed. Findings: The ventricles are within normal limits for age. This appears essentially unchanged from the prior study. No focal mass effect or midline shift is seen. I see no evidence of acute intracranial bleed or abnormal extra-axial fluid collection. Only subtle degenerative microischemic changes are seen within the periventricular and subcortical white matter. A discrete low attenuation infarct is not evident. The cortical sulci and sylvian fissures appear unremarkable. Vascular calcification is seen within both distal vertebral arteries, left greater than right. I also see moderate atherosclerotic vascular calcification within both internal carotid artery siphons. The calvarium is skull appears intact without fracture. The visualized paranasal sinuses reveal minimal mucosal thickening along the upper medial aspect of the left ethmoid sinus. No air-fluid levels are seen. The mastoid air cells are well aerated without effusion. The middle ear cavities appear grossly unremarkable. There is a suggestion of some cerumen within the distal left external auditory canal. The external auditory canal on the left appears a bit narrower than that on the right. Correlate clinically regarding soft tissue swelling/inflammation. The orbits appear grossly unremarkable. Impression: 1. No acute intracranial bleed or other acute intracranial process is seen. 2. Minimal chronic left ethmoid sinus disease. No air-fluid levels are seen. 3. Questionable mild soft tissue swelling/inflammation about the left external auditory canal as compared to the right side. Correlate with clinical exam. The middle ear cavities appear symmetric bilaterally and are unremarkable. 4. Unremarkable appearance of the mastoid air cells. No effusion is seen.
[2021-04-26] MEDS ORDERED: Zofran 4 MG/2 ML VIAL IV PRN (18:07)
[2021-04-26] MEDS ORDERED: MORPHINE SULFATE 2 MG INJ IV PRN (18:07)
[2021-04-26] MEDS: Lopressor 50 MG PO SCH (22:22)
[2021-04-26] MEDS: HUMALOG SQ PRN (22:25)
[2021-04-26] MEDS ORDERED: Lantus Insulin SQ SCH (22:30)
[2021-04-26] MEDS ORDERED: Flomax 0.4 MG PO SCH (22:30)
[2021-04-26] MEDS ORDERED: Protonix 40MG Tablet PO SCH (22:30)
[2021-04-27 05:55] LABS: Absolute Neutrophil Ct (ANC) 6.52 (1.4-6.9); BASOPHIL % 0.2 % (0.0-0.4); Basophil (Absolute #) 0.02 (0-0.4); Eosinophil % 3.1 % (0.00-5.0); Eosinophil (Absolute #) 0.26 (0-0.5); Hematocrit 36.6 % (42-50); Hemoglobin 11.5 gm/dl (12.5-18.0); Lymphocytes % 10.6 % (24.0-44.0); Mean Cell Volume 102.8 fl (78-100); Mean Corpuscular Hemoglobin 32.3 pg (26-32); Mean Corpuscular Hgb Concent. 31.4 g/dl (32-36); Mean Platelet Volume 10.6 fl (7.5-11.0); Monocyte (Absolute #) 0.78 (0.0-1.3); Monocytes % 9.2 % (0.0-12.0); Neutrophil % 76.9 % (36.0-66.0); Platelet Count 170 K/mm3 (150-450); Red Blood Count 3.56 M/mm3 (4.1-5.6); Red Cell Distribution Width 13.9 % (11.5-14.0); White Blood Count 8.5 K/mm3 (4.0-10.5)
[2021-04-27 06:26] LABS: ALBUMIN 4.1 g/dL (3.5-5.0); BILIRUBIN,TOTAL 0.5 mg/dL (0.2-1.3); Calcium 8.7 mg/dL (8.4-10.2); Creatinine 1 6.28 mg/dL (0.66-1.25); Potassium 4.9 mmol/L (3.5-5.1); Total Protein 6.6 g/dL (6.3-8.2)
[2021-04-27 06:52] LABS: Lymphocytes 15 % (24-44); Monocyte 6 % (0.0-12.0); Neutrophils 79 % (36.-66.); Platelet Estimate NORMAL (NORMAL); Total Cells Counted 100
--- NOTE | 2021-04-27 08:27 | PCM.HP ---
History of Present Illness - Chief Complaint Chief Complaint: generalized weakness History of Present Illness: is a 85 year old male.presents to our ED via EMS from hemodialysis for evaluation of generalized weakness post dialysis session. Patient receives hemodialysis Monday. He produces little urine. Patient completed his dialysis session today. He states after his session he felt weak. Patient had no pain. No nausea vomiting or diaphoresis. No chest pain. Patient tried ambulating but felt too weak to to ambulate. Staff called 911 patient brought to our ED. Patient otherwise well. He has no complaints. Symptoms are mild to moderate in intensity. No specific worsening improving factors. Patient voices no other complaints at this time. Right upper extremity fistula intact. - Review of Systems Constitutional: Fatigue, Lethargy, Weakness, No Fever, No Chills Eyes: No Symptoms Ears, Nose, & Throat: No Symptoms Respiratory: Orthopnea, Short Of Breath, No Cough Cardiac: Orthopnea, No Chest Pain, No Edema, No Syncope Abdominal/Gastrointestinal: No Abdominal Pain, No Nausea, No Vomiting, No Diarrhea Genitourinary Symptoms: No Dysuria Musculoskeletal: No Back Pain, No Neck Pain Skin: No Rash Neurological: No Dizziness, No Focal Weakness, No Sensory Changes Psychological: No Symptoms Endocrine: No Symptoms Hematologic/Lymphatic: No Symptoms Immunological/Allergic: No Symptoms Medications & Allergies Home Medications: Home Medication List Levothyroxine Sodium 50 Mcg [Synthroid 50 Mcg] 50 mcg PO DAILY 12/01/18 [History Confirmed 04/26/21] Polyethylene Glycol 3350 [Miralax] 17 gm PO DAILY 12/01/18 [History Confirmed 04/26/21] Clonidine HCl Tts-2 Patch [Catapres TTS-2 PATCH] 0.1 mg TD WEEKLY 12/04/18 [History Confirmed 04/26/21] Insulin Aspart [NovoLOG Insulin] 1 unit SQ AC 09/09/19 [History Confirmed 04/26/21] Rosuvastatin Calcium 5 mg PO HS 09/09/19 [History Confirmed 04/26/21] Aspirin 81 mg PO DAILY 04/26/21 [History Confirmed 04/26/21] Doxazosin Mesylate 1 mg PO DAILY 04/26/21 [History Confirmed 04/26/21] Ferric Citrate [Auryxia] 210 mg PO TIDWMEALS 04/26/21 [History Confirmed 04/26/21] Insulin Degludec [Tresiba] 25 unit SQ HS 04/26/21 [History Confirmed 04/26/21] Metoprolol Tartrate 50 mg PO BID 04/26/21 [History Confirmed 04/26/21] Pantoprazole Sodium [Protonix] 40 mg PO HS 04/26/21 [History Confirmed 04/26/21] Sildenafil Citrate [Sildenafil] 20 mg PO DAILY 04/26/21 [History Confirmed 04/26/21] Tamsulosin HCl 0.4 mg [Flomax 0.4 MG] 0.4 mg PO HS 04/26/21 [History Confirmed 04/26/21] Allergies/Adverse Reactions: Allergies Allergy/AdvReac Type Severity Reaction Status Date / Time Sulfa (Sulfonamide Allergy Mild Verified 04/26/21 12:28 Antibiotics) - Past Medical History Past Medical History: Yes Neurological History: No Pertinent History ENT History: No Pertinent History Cardiac History: Hypertension Respiratory History: No Pertinent History Endocrine Medical History: Diabetes Type II, Hypothyroidism Musculoskelatal History: Arthritis GI Medical History: GERD History: Renal Disease Pyscho-Social History: No Pertinent History Male Reproductive Disorders: No Pertinent History - Past Surgical History Past Surgical History: Yes Neuro Surgical History: No Pertinent History Cardiac History: No Pertinent History Respiratory Surgery: No Pertinent History GI Surgical History: Cholecystectomy Genitourinary Surgical Hx: No Pertinent History Musculskeletal Surgical Hx: No Pertinent History Male Surgical History: Prostate Surgery Other Surgical History: fistula - Social History Smoking Status: Smoker, status unknown Exposure to second hand smoke: No Alcohol: None Drug Use: none - Physical Exam Vital Signs: Vital Signs - 24 hr Temp Pulse Resp BP BP Pulse Ox 04/27/21 08:00 98.0 F 58 L 18 197/88 98 04/27/21 04:00 98 F 70 18 187/84 95 04/27/21 00:00 16 04/26/21 23:45 98 F 64 16 140/66 97 04/26/21 20:19 98.7 F 70 94 L 04/26/21 19:46 94 L 04/26/21 19:08 98.7 F 70 16 201/97 96 04/26/21 19:07 98.7 F 70 16 201/97 96 04/26/21 17:28 95 07/12/21 16:50 78 20 177/78 94 L 04/26/21 15:00 70 20 175/80 96 04/26/21 14:23 74 18 172/75 96 04/26/21 13:23 73 22 200/90 93 L 04/26/21 12:21 98.2 F 65 18 177/79 95 04/26/21 12:18 93 L General Appearance: moderate distress, alert Neurologic Exam: alert, oriented x 3, cooperative, No motor deficits Eye Exam: PERRL/EOMI, eyes nml inspection Ears, Nose, Throat Exam: normal ENT inspection, TMs normal, pharynx normal, moist mucous membranes Neck Exam: normal inspection, non-tender, supple, full range of motion Respiratory Exam: diminished breath sounds, crackles/rales, No respiratory distress Cardiovascular Exam: regular rate/rhythm, normal heart sounds, normal peripheral pulses Gastrointestinal/Abdomen Exam: soft, normal bowel sounds, No tenderness, No mass Back Exam: normal inspection, normal range of motion, No CVA tenderness, No vertebral tenderness Extremity Exam: normal inspection, normal range of motion, pelvis stable Skin Exam: normal color, warm, dry, No rash Lymphatic Exam: No adenopathy Results - Labs Lab/Micro Results: Lab Results-Last 24 Hours 04/26/21 04/26/21 04/26/21 Range/Units 12:40 12:40 12:40 WBC 10.7 H (4.0-10.5) K/mm3 RBC 3.95 L (4.1-5.6) M/mm3 Hgb 12.7 (12.5-18.0) gm/dl Hct 40.3 L (42-50) % MCV 102.0 H (78-100) fl MCH 32.2 H (26-32) pg MCHC 31.5 L (32-36) g/dl RDW 13.8 (11.5-14.0) % Plt Count 170 (150-450) K/mm3 MPV 10.0 (7.5-11.0) fl Gran % (36.0-66.0) % Eos # (Auto) (0-0.5) Absolute Lymphs (auto) (1.0-4.6) Absolute Monos (auto) (0.0-1.3) Lymphocytes % (24.0-44.0) % Monocytes % (0.0-12.0) % Eosinophils % (0.00-5.0) % Basophils % (0.0-0.4) % Absolute Granulocytes (1.4-6.9) Segmented Neutrophils 85 H (36.-66.) % Lymphocytes (Manual) 14 L (24-44) % Monocytes (Manual) 1 (0.0-12.0) % Basophils # (0-0.4) Platelet Estimate NORMAL (NORMAL) RBC Morphology NORMAL Sodium 139 (137-145) mmol/L Potassium 4.3 (3.5-5.1) mmol/L Chloride 89 L (98-107) mmol/L Carbon Dioxide 37 H (22-30) mmol/L Anion Gap 17.6 H (5-15) MEQ/L BUN 23 H (9-20) mg/dL Creatinine 4.39 H (0.66-1.25) mg/dL Estimated GFR 13.7 ML/MIN Glucose 115 H (74-106) mg/dL POC Glucometer (74 to 106) mg/dL Calcium 9.8 (8.4-10.2) mg/dL Magnesium 1.7 (1.6-2.3) mg/dL Total Bilirubin 0.80 (0.2-1.3) mg/dL AST 28 (17-59) U/L ALT 21 (0-50) U/L Alkaline Phosphatase 98 (38-126) U/L Troponin I 0.208 H* (0.000-0.034) ng/mL Serum Total Protein 8.3 H (6.3-8.2) g/dL Albumin 5.0 (3.5-5.0) g/dL SARS-CoV-2 (PCR) (NEGATIVE) 04/26/21 04/26/21 04/26/21 Range/Units 15:28 16:01 18:36 WBC (4.0-10.5) K/mm3 RBC (4.1-5.6) M/mm3 Hgb (12.5-18.0) gm/dl Hct (42-50) % MCV (78-100) fl MCH (26-32) pg MCHC (32-36) g/dl RDW (11.5-14.0) % Plt Count (150-450) K/mm3 MPV (7.5-11.0) fl Gran % (36.0-66.0) % Eos # (Auto) (0-0.5) Absolute Lymphs (auto) (1.0-4.6) Absolute Monos (auto) (0.0-1.3) Lymphocytes % (24.0-44.0) % Monocytes % (0.0-12.0) % Eosinophils % (0.00-5.0) % Basophils % (0.0-0.4) % Absolute Granulocytes (1.4-6.9) Segmented Neutrophils (36.-66.) % Lymphocytes (Manual) (24-44) % Monocytes (Manual) (0.0-12.0) % Basophils # (0-0.4) Platelet Estimate (NORMAL) RBC Morphology Sodium (137-145) mmol/L Potassium (3.5-5.1) mmol/L Chloride (98-107) mmol/L Carbon Dioxide (22-30) mmol/L Anion Gap (5-15) MEQ/L BUN (9-20) mg/dL Creatinine (0.66-1.25) mg/dL Estimated GFR ML/MIN Glucose (74-106) mg/dL POC Glucometer (74 to 106) mg/dL Calcium (8.4-10.2) mg/dL Magnesium (1.6-2.3) mg/dL Total Bilirubin (0.2-1.3) mg/dL AST (17-59) U/L ALT (0-50) U/L Alkaline Phosphatase (38-126) U/L Troponin I 0.173 H* 0.165 H* (0.000-0.034) ng/mL Serum Total Protein (6.3-8.2) g/dL Albumin (3.5-5.0) g/dL SARS-CoV-2 (PCR) NEGATIVE (NEGATIVE) 04/26/21 04/26/21 04/27/21 Range/Units 20:56 21:07 00:40 WBC (4.0-10.5) K/mm3 RBC (4.1-5.6) M/mm3 Hgb (12.5-18.0) gm/dl Hct (42-50) % MCV (78-100) fl MCH (26-32) pg MCHC (32-36) g/dl RDW (11.5-14.0) % Plt Count (150-450) K/mm3 MPV (7.5-11.0) fl Gran % (36.0-66.0) % Eos # (Auto) (0-0.5) Absolute Lymphs (auto) (1.0-4.6) Absolute Monos (auto) (0.0-1.3) Lymphocytes % (24.0-44.0) % Monocytes % (0.0-12.0) % Eosinophils % (0.00-5.0) % Basophils % (0.0-0.4) % Absolute Granulocytes (1.4-6.9) Segmented Neutrophils (36.-66.) % Lymphocytes (Manual) (24-44) % Monocytes (Manual) (0.0-12.0) % Basophils # (0-0.4) Platelet Estimate (NORMAL) RBC Morphology Sodium (137-145) mmol/L Potassium (3.5-5.1) mmol/L Chloride (98-107) mmol/L Carbon Dioxide (22-30) mmol/L Anion Gap (5-15) MEQ/L BUN (9-20) mg/dL Creatinine (0.66-1.25) mg/dL Estimated GFR ML/MIN Glucose (74-106) mg/dL POC Glucometer 228 H (74 to 106) mg/dL Calcium (8.4-10.2) mg/dL Magnesium (1.6-2.3) mg/dL Total Bilirubin (0.2-1.3) mg/dL AST (17-59) U/L ALT (0-50) U/L Alkaline Phosphatase (38-126) U/L Troponin I 0.153 H* 0.149 H* (0.000-0.034) ng/mL Serum Total Protein (6.3-8.2) g/dL Albumin (3.5-5.0) g/dL SARS-CoV-2 (PCR) (NEGATIVE) 04/27/21 04/27/21 04/27/21 Range/Units 04:35 04:35 07:46 WBC 8.5 (4.0-10.5) K/mm3 RBC 3.56 L (4.1-5.6) M/mm3 Hgb 11.5 L (12.5-18.0) gm/dl Hct 36.6 L (42-50) % MCV 102.8 H (78-100) fl MCH 32.3 H (26-32) pg MCHC 31.4 L (32-36) g/dl RDW 13.9 (11.5-14.0) % Plt Count 170 (150-450) K/mm3 MPV 10.6 (7.5-11.0) fl Gran % 76.9 H (36.0-66.0) % Eos # (Auto) 0.26 (0-0.5) Absolute Lymphs (auto) 0.90 L (1.0-4.6) Absolute Monos (auto) 0.78 (0.0-1.3) Lymphocytes % 10.6 L (24.0-44.0) % Monocytes % 9.2 (0.0-12.0) % Eosinophils % 3.1 (0.00-5.0) % Basophils % 0.2 (0.0-0.4) % Absolute Granulocytes 6.52 (1.4-6.9) Segmented Neutrophils 79 H (36.-66.) % Lymphocytes (Manual) 15 L (24-44) % Monocytes (Manual) 6 (0.0-12.0) % Basophils # 0.02 (0-0.4) Platelet Estimate NORMAL (NORMAL) RBC Morphology NORMAL Sodium 138 (137-145) mmol/L Potassium 4.9 (3.5-5.1) mmol/L Chloride 94 L (98-107) mmol/L Carbon Dioxide 32 H (22-30) mmol/L Anion Gap 17.0 H (5-15) MEQ/L BUN 36 H (9-20) mg/dL Creatinine 6.28 H (0.66-1.25) mg/dL Estimated GFR 9.0 ML/MIN Glucose 69 L (74-106) mg/dL POC Glucometer 133 H (74 to 106) mg/dL Calcium 8.7 (8.4-10.2) mg/dL Magnesium (1.6-2.3) mg/dL Total Bilirubin 0.50 (0.2-1.3) mg/dL AST 22 (17-59) U/L ALT 16 (0-50) U/L Alkaline Phosphatase 72 (38-126) U/L Troponin I (0.000-0.034) ng/mL Serum Total Protein 6.6 (6.3-8.2) g/dL Albumin 4.1 (3.5-5.0) g/dL SARS-CoV-2 (PCR) (NEGATIVE) Accuchecks Date 04/26/21 Time 20:56 - Radiology Impressions Radiology Exams & Impressions: Radiology Procedures Category Date Time Status HEAD WITHOUT CONTRAST [CT] Stat Exams 04/26/21 14:[address]/HEAD WITHOUT CONTRAST Exam: CT of the head without IV contrast from 04/26/2021. CTDI: 53.92 mGy Comparison: CT of the head from 01/13/2020. Indication: 85-year-old male with weakness and earache for 1 week. Technique: Non-IV contrast axial images were obtained through the brain. Reconstructed coronal and sagittal images were created and reviewed. Findings: The ventricles are within normal limits for age. This appears essentially unchanged from the prior study. No focal mass effect or midline shift is seen. I see no evidence of acute intracranial bleed or abnormal extra-axial fluid collection. Only subtle degenerative microischemic changes are seen within the periventricular and subcortical white matter. A discrete low attenuation infarct is not evident. The cortical sulci and sylvian fissures appear unremarkable. Vascular calcification is seen within both distal vertebral arteries, left greater than right. I also see moderate atherosclerotic vascular calcification within both internal carotid artery siphons. The calvarium is skull appears intact without fracture. The visualized paranasal sinuses reveal minimal mucosal thickening along the upper medial aspect of the left ethmoid sinus. No air-fluid levels are seen. The mastoid air cells are well aerated without effusion. The middle ear cavities appear grossly unremarkable. There is a suggestion of some cerumen within the distal left external auditory canal. The external auditory canal on the left appears a bit narrower than that on the right. Correlate clinically regarding soft tissue swelling/inflammation. The orbits appear grossly unremarkable. Impression: 1. No acute intracranial bleed or other acute intracranial process is seen. 2. Minimal chronic left ethmoid sinus disease. No air-fluid levels are seen. 3. Questionable mild soft tissue swelling/inflammation about the left external auditory canal as compared to the right side. Correlate with clinical exam. The middle ear cavities appear symmetric bilaterally and are unremarkable. 4. Unremarkable appearance of the mastoid air cells. No effusion is seen. - Other Procedures and Tests Respiratory Therapy 04/26/21 19:43 Oxygen Nasal Cannula 3 lpm Assessment/Plan (1) Hypotension due to hypovolemia Current Visit: Yes Status: Acute Assessment & Plan: Last Vital Signs Temp 98.0 F 04/27/21 08:00 Pulse 58 L 04/27/21 08:00 Resp 18 04/27/21 08:00 BP 197/88 04/27/21 08:00 Pulse Ox 98 04/27/21 08:00 Allergies Sulfa (Sulfonamide Antibiotics) Allergy (Mild, Verified 04/26/21 12:28) Active Medications Aspirin (Ecotrin 81 Mg) 81 mg PO DAILY [facility] Stop: 05/27/21 09:59 Clonidine HCl (Catapres-Tts 1 Patch) 0.1 mg TD Q7D [facility] Stop: 05/31/21 09:59 Insulin Glargine (Lantus Insulin) 25 unit SQ HS [facility] Stop: 05/26/21 22:29 Last Admin: 04/26/21 22:25 Dose: 25 unit Documented by: Insulin Human Lispro (Humalog) 0 unit SQ UD PRN PRN Reason: HYPERGLYCEMIA Stop: 05/26/21 22:09 Last Admin: 04/26/21 22:25 Dose: 2 unit Documented by: Levothyroxine Sodium (Synthroid 50 Mcg) 50 mcg PO DAILY [facility] Stop: 05/27/21 09:59 Metoprolol Tartrate (Lopressor 50 Mg) 50 mg PO BID [facility] Stop: 05/26/21 22:29 Last Admin: 04/26/21 22:22 Dose: 50 mg Documented by: Morphine Sulfate (Morphine Sulfate 2 Mg Inj) 2 mg IV Q4H PRN PRN PRN Reason: PAIN Stop: 05/01/21 18:06 Non-Formulary Medication (Doxazosin Mesylate [Doxazosin Mesylate]) 1 mg PO DAILY [facility] Stop: 05/27/21 09:59 Non-Formulary Medication (Ferric Citrate [Auryxia]) 210 mg PO TIDWMEALS [facility] Stop: 05/27/21 11:59 Non-Formulary Medication (Rosuvastatin Calcium [Rosuvastatin Calcium]) 5 mg PO HS [facility] Stop: 05/27/21 21:59 Non-Formulary Medication (Sildenafil Citrate [Sildenafil Citrate]) 20 mg PO DAILY [facility] Stop: 05/27/21 09:59 Ondansetron HCl (Zofran 4 Mg/2 Ml Vial) 4 mg IV Q6H PRN PRN PRN Reason: NAUSEA/VOMITING Stop: 05/26/21 18:06 Pantoprazole Sodium (Protonix 40mg Tablet) 40 mg PO HS [facility] Stop: 05/26/21 22:29 Last Admin: 04/26/21 22:22 Dose: 40 mg Documented by: Polyethylene Glycol (Miralax Powder 17gm Packet) 17 gm PO DAILY [facility] Stop: 05/27/21 09:59 Tamsulosin HCl (Flomax 0.4 Mg) 0.4 mg PO HS [facility] Stop: 05/26/21 22:29 Last Admin: 04/26/21 22:22 Dose: 0.4 mg Documented by: Intake & Output 04/26/21 04/27/21 11:59 11:59 Intake Total 420 Balance 420 Weight 92.3 kg Orders 04/26/21 19:43 Oxygen Nasal Cannula 3 lpm 04/26/21 22:00 POCT Glucose Check [facility] 04/26/21 22:10 Insulin Lispro [Humalog] See Dose Instructions SQ UD PRN 04/26/21 22:30 Insulin Glargine [Lantus Insulin] 25 unit SQ HS Metoprolol Tartrate 50 mg [Lopressor 50 MG] 50 mg PO BID PANTOPRAZOLE 40 mg Tablet [Protonix 40MG Tablet] 40 mg PO HS Tamsulosin HCl 0.4 mg [Flomax 0.4 MG] 0.4 mg PO HS 04/27/21 10:00 Aspirin EC 81 mg [Ecotrin 81 mg] 81 mg PO DAILY Doxazosin Mesylate [Doxazosin Mesylate] 1 mg PO DAILY Levothyroxine Sodium 50 Mcg [Synthroid 50 Mcg] 50 mcg PO DAILY Polyethylene Glycol 3350 17 gm [Miralax Powder 17GM PACKET] 17 gm PO DAILY Sildenafil Citrate [Sildenafil Citrate] 20 mg PO DAILY 04/27/21 12:00 Ferric Citrate [Auryxia] 210 mg PO TIDWMEALS 04/27/21 22:00 Rosuvastatin Calcium [Rosuvastatin Calcium] 5 mg PO HS 05/01/21 10:00 Clonidine HCl Tts-1 Patch [Catapres-TTS 1 PATCH] 0.1 mg TD Q7D Lab Tests 04/26/21 04/26/21 04/26/21 12:40 12:40 12:40 WBC 10.7 H RBC 3.95 L Hgb 12.7 Hct 40.3 L MCV 102.0 H MCH 32.2 H MCHC 31.5 L RDW 13.8 Plt Count 170 MPV 10.0 Gran % Eos # (Auto) Absolute Lymphs (auto) Absolute Monos (auto) Lymphocytes % Monocytes % Eosinophils % Basophils % Absolute Granulocytes Segmented Neutrophils 85 H Lymphocytes (Manual) 14 L Monocytes (Manual) 1 Basophils # Platelet Estimate NORMAL RBC Morphology NORMAL Sodium 139 Potassium 4.3 Chloride 89 L Carbon Dioxide 37 H Anion Gap 17.6 H BUN 23 H Creatinine 4.39 H Estimated GFR 13.7 Glucose 115 H POC Glucometer Calcium 9.8 Magnesium 1.7 Total Bilirubin 0.80 AST 28 ALT 21 Alkaline Phosphatase 98 Troponin I 0.208 H* Serum Total Protein 8.3 H Albumin 5.0 SARS-CoV-2 (PCR) 04/26/21 04/26/21 04/26/21 15:28 16:01 18:36 WBC RBC Hgb Hct MCV MCH MCHC RDW Plt Count MPV Gran % Eos # (Auto) Absolute Lymphs (auto) Absolute Monos (auto) Lymphocytes % Monocytes % Eosinophils % Basophils % Absolute Granulocytes Segmented Neutrophils Lymphocytes (Manual) Monocytes (Manual) Basophils # Platelet Estimate RBC Morphology Sodium Potassium Chloride Carbon Dioxide Anion Gap BUN Creatinine Estimated GFR Glucose POC Glucometer Calcium Magnesium Total Bilirubin AST ALT Alkaline Phosphatase Troponin I 0.173 H* 0.165 H* Serum Total Protein Albumin SARS-CoV-2 (PCR) NEGATIVE 04/26/21 04/26/21 04/27/21 20:56 21:07 00:40 WBC RBC Hgb Hct MCV MCH MCHC RDW Plt Count MPV Gran % Eos # (Auto) Absolute Lymphs (auto) Absolute Monos (auto) Lymphocytes % Monocytes % Eosinophils % Basophils % Absolute Granulocytes Segmented Neutrophils Lymphocytes (Manual) Monocytes (Manual) Basophils # Platelet Estimate RBC Morphology Sodium Potassium Chloride Carbon Dioxide Anion Gap BUN Creatinine Estimated GFR Glucose POC Glucometer 228 H Calcium Magnesium Total Bilirubin AST ALT Alkaline Phosphatase Troponin I 0.153 H* 0.149 H* Serum Total Protein Albumin SARS-CoV-2 (PCR) 04/27/21 04/27/21 04/27/21 04:35 04:35 07:46 WBC 8.5 RBC 3.56 L Hgb 11.5 L Hct 36.6 L MCV 102.8 H MCH 32.3 H MCHC 31.4 L RDW 13.9 Plt Count 170 MPV 10.6 Gran % 76.9 H Eos # (Auto) 0.26 Absolute Lymphs (auto) 0.90 L Absolute Monos (auto) 0.78 Lymphocytes % 10.6 L Monocytes % 9.2 Eosinophils % 3.1 Basophils % 0.2 Absolute Granulocytes 6.52 Segmented Neutrophils 79 H Lymphocytes (Manual) 15 L Monocytes (Manual) 6 Basophils # 0.02 Platelet Estimate NORMAL RBC Morphology NORMAL Sodium 138 Potassium 4.9 Chloride 94 L Carbon Dioxide 32 H Anion Gap 17.0 H BUN 36 H Creatinine 6.28 H Estimated GFR 9.0 Glucose 69 L POC Glucometer 133 H Calcium 8.7 Magnesium Total Bilirubin 0.50 AST 22 ALT 16 Alkaline Phosphatase 72 Troponin I Serum Total Protein 6.6 Albumin 4.1 SARS-CoV-2 (PCR) Code(s): I95.89 - OTHER HYPOTENSION; E86.1 - HYPOVOLEMIA (2) Generalized weakness Current Visit: Yes Status: Acute Code(s): R53.1 - WEAKNESS (3) Chronic renal disease, stage 5, glomerular filtration rate less than or equa l to 15 mL/min/1.73 square meter Current Visit: Yes Status: Chronic Code(s): N18.5 - CHRONIC KIDNEY DISEASE, STAGE 5
[2021-04-27] MEDS ORDERED: MEDICATION INTERVENTION PO SCH ×2 (09:15)
[2021-04-27] MEDS: Lopressor 50 MG PO SCH (09:46)
[2021-04-27] MEDS ORDERED: ECOTRIN 81 MG PO SCH (10:00)
[2021-04-27] MEDS ORDERED: CARDURA 2 MG PO SCH (10:00)
[2021-04-27] MEDS ORDERED: NON-FORMULARY ITEM (Aspirin [Aspirin] 81 MG) PO SCH (10:00)
[2021-04-27] MEDS ORDERED: SYNTHROID 50 MCG PO SCH (10:00)
[2021-04-27] MEDS ORDERED: SILDENAFIL CITRATE 20 MG PO SCH (10:00)
[2021-04-27] MEDS ORDERED: NON-FORMULARY ITEM (Doxazosin Mesylate [Doxazosin Mesylate] 1 MG) PO SCH (10:00)
[2021-04-27] MEDS ORDERED: Miralax Powder 17GM PACKET PO SCH (10:00)
[2021-04-27 11:48] VITALS: BP 182/86; PULSE 66; O2SAT 95
[2021-04-27] MEDS ORDERED: FERRIC CITRATE 210 MG PO SCH (12:00)
[2021-04-27] MEDS: HUMALOG SQ PRN (12:15)
[2021-04-27] MEDS ORDERED: Zocor 10MG PO SCH (22:00)
[2021-04-27] MEDS ORDERED: NON-FORMULARY ITEM (Rosuvastatin Calcium [Rosuvastatin Calcium] 5 MG) PO SCH (22:00)
--- NOTE | 2021-04-29 08:19 | PCM.DS ---
Discharge Summary Date of Admission: 04/26/21 18:00 Admitting Physician: LAKISHA SAGASTUME Primary Care Provider: LAKISHA SAGASTUME Allergies Allergies Sulfa (Sulfonamide Antibiotics) Allergy (Mild, Verified 04/26/21 12:28) Hospital Summary - Hospital Course Hospital Course: Chief Complaint Diagnosis generalized weakness Allergies Allergy/AdvReac Type Severity Reaction Status Date / Time Sulfa (Sulfonamide Allergy Mild Verified 04/26/21 12:28 Antibiotics) Home Medications Medication Instructions Recorded Confirmed Last Taken Type Aspirin 81 mg PO DAILY 04/26/21 04/26/21 04/26/21 History Doxazosin Mesylate 1 mg PO DAILY 04/26/21 04/26/21 04/26/21 History Ferric Citrate [Auryxia] 210 mg PO TIDWMEALS 04/26/21 04/26/21 Unknown History Insulin Degludec [Tresiba] 25 unit SQ HS 04/26/21 04/26/21 Unknown History Metoprolol Tartrate 50 mg PO BID 04/26/21 04/26/21 Unknown History Pantoprazole Sodium [Protonix] 40 mg PO HS 04/26/21 04/26/21 04/25/21 History Sildenafil Citrate 20 mg PO DAILY 04/26/21 04/26/21 Unknown History Tamsulosin HCl 0.4 mg [Flomax 0.4 mg PO HS 04/26/21 04/26/21 Unknown History 0.4 MG] Current Medications Discontinued Medications Generic Name Dose Route Start Last Admin Trade Name Freq PRN Reason Stop Dose Admin Aspirin 81 mg 04/27/21 10:00 04/27/21 09:46 Ecotrin 81 Mg PO 05/27/21 09:59 81 mg DAILY ZAIN Administration Clonidine HCl 0.1 mg 05/01/21 10:00 Catapres-Tts 1 Patch TD 05/31/21 09:59 Q7D ZAIN Doxazosin Mesylate 1 mg 04/27/21 10:00 04/27/21 09:46 Cardura 2 Mg PO 05/27/21 09:59 1 mg DAILY ZAIN Administration Insulin Glargine 25 unit 04/26/21 22:30 04/26/21 22:25 Lantus Insulin SQ 05/26/21 22:29 25 unit HS ZAIN Administration Insulin Human Lispro 0 unit 07/12/21 22:10 04/27/21 12:15 Humalog SQ 05/26/21 22:09 4 unit UD PRN Administration HYPERGLYCEMIA Levothyroxine Sodium 50 mcg 04/27/21 10:00 04/27/21 09:47 Synthroid 50 Mcg PO 05/27/21 09:59 50 mcg DAILY ZAIN Administration Metoprolol Tartrate 50 mg 04/26/21 22:30 04/27/21 09:46 Lopressor 50 Mg PO 05/26/21 22:29 50 mg BID ZAIN Administration Miscellaneous Information 1 each 04/27/21 09:15 Medication Intervention PO 05/27/21 09:14 .RN TO CHECK ZAIN Miscellaneous Information 1 each 04/27/21 09:15 Medication Intervention PO 05/27/21 09:14 .RN TO CHECK ZAIN Morphine Sulfate 2 mg 04/26/21 18:07 Morphine Sulfate 2 Mg Inj IV 05/01/21 18:06 Q4H PRN PRN PAIN Ondansetron HCl 4 mg 04/26/21 18:07 Zofran 4 Mg/2 Ml Vial IV 05/26/21 18:06 Q6H PRN PRN NAUSEA/VOMITING Pantoprazole Sodium 40 mg 04/26/21 22:30 04/26/21 22:22 Protonix 40mg Tablet PO 05/26/21 22:29 40 mg HS ZAIN Administration Polyethylene Glycol 17 gm 04/27/21 10:00 04/27/21 09:48 Miralax Powder 17gm Packet PO 05/27/21 09:59 17 gm DAILY ZAIN Administration Simvastatin 10 mg 04/27/21 22:00 Zocor 10mg PO 05/27/21 21:59 HS ZAIN Tamsulosin HCl 0.4 mg 04/26/21 22:30 04/26/21 22:22 Flomax 0.4 Mg PO 05/26/21 22:29 0.4 mg HS ZAIN Administration Intake & Output (Last 24 hours) 04/26/21 04/27/21 04/28/21 04/29/21 11:59 11:59 11:59 11:59 Intake Total 800 480 Balance 800 480 Weight 92.3 kg Orders (Last 24 hours) Category Date Time Status Clonidine HCl Tts-1 Patch [Catapres-TTS 1 PATCH] Med 05/01/21 10:00 Discontinued 0.1 mg TD Q7D - Vitals & Intake/Output Vital Signs: Vital Signs Temperature 98.3 F 04/27/21 11:47 Pulse Rate 66 04/27/21 11:47 Respiratory Rate 20 04/27/21 12:00 Blood Pressure 182/86 04/27/21 11:47 O2 Sat by Pulse Oximetry 95 04/27/21 11:47 Intake & Output: Intake & Output 04/26/21 04/27/21 04/28/21 04/29/21 11:59 11:59 11:59 11:59 Intake Total 800 480 Balance 800 480 Weight 92.3 kg - Lab Result Diagrams: 04/27/21 04:35 04/27/21 04:35 - Procedures and Test Procedures and Tests throughout Hospitalization: Therapy Orders & Screens 04/26/21 19:43 Oxygen Nasal Cannula 3 lpm Comment: Diagnosis: generalized weakness 04/27/21 11:04 PT Eval & Treat ( Order) ONCE Reason for Eval:: gen weakness Diagnosis: generalized weakness Discharge Exam General Appearance: no apparent distress, alert Neurologic Exam: alert, oriented x 3, cooperative, normal mood/affect, nml cerebellar function, sensation nml, No motor deficits Eye Exam: PERRL, EOMI, eyes nml inspection Ears, Nose, Throat Exam: normal ENT inspection, pharynx normal, moist mucous membranes Neck Exam: normal inspection, non-tender, supple, full range of motion Respiratory Exam: normal breath sounds, lungs clear, No respiratory distress Cardiovascular Exam: regular rate/rhythm, normal heart sounds Gastrointestinal/Abdomen Exam: soft, No tenderness, No mass Male Genitalia Exam: deferred Rectal Exam: deferred Back Exam: normal inspection, normal range of motion, No CVA tenderness, No vertebral tenderness Extremity Exam: normal inspection, normal range of motion Skin Exam: normal color, warm, dry Final Diagnosis/Problem List - Final Discharge Diagnosis/Problem (1) Hypotension due to hypovolemia Status: Resolved Code(s): I95.89 - OTHER HYPOTENSION; E86.1 - HYPOVOLEMIA (2) Generalized weakness Status: Resolved Code(s): R53.1 - WEAKNESS (3) Chronic renal disease, stage 5, glomerular filtration rate less than or equal to 15 mL/min/1.73 square meter Status: Chronic Code(s): N18.5 - CHRONIC KIDNEY DISEASE, STAGE 5 - Discharge Discharge Date: 04/27/21 Disposition: Home, Self-Care Condition: Stable Prescriptions: Continue Levothyroxine Sodium 50 Mcg [Synthroid 50 Mcg] 50 mcg PO DAILY Polyethylene Glycol 3350 [Miralax] 17 gm PO DAILY Clonidine HCl Tts-2 Patch [Catapres TTS-2 PATCH] 0.1 mg TD WEEKLY Rosuvastatin Calcium 5 mg PO HS Insulin Aspart [NovoLOG Insulin] 1 unit SQ AC Tamsulosin HCl 0.4 mg [Flomax 0.4 MG] 0.4 mg PO HS Metoprolol Tartrate 50 mg PO BID Sildenafil Citrate 20 mg PO DAILY Doxazosin Mesylate 1 mg PO DAILY Pantoprazole Sodium [Protonix] 40 mg PO HS Insulin Degludec [Tresiba] 25 unit SQ HS Ferric Citrate [Auryxia] 210 mg PO TIDWMEALS Aspirin 81 mg PO DAILY Instructions: Generalized Weakness (DC) Additional Instructions: [facility] THEY WILL MAKE CONTACT TO SEE YOU. THEIR PHONE NUMBER IS [phone] Follow up with: LAKISHA SAGASTUME MD [Primary Care Provider] - 05/04/21 9:45 am (IN [place]) Forms: Discharge Instructions
[2021-05-01] MEDS ORDERED: Catapres-TTS 1 PATCH TD SCH (10:00)
== END 2021-04-27 15:23 | disposition home or self-care (01) ==
LOC: ED 12:17 → MED SURG 18:00
PROVIDERS: ADMIT General Practice; ATTEND General Practice
DX: E86.1 Hypovolemia (principal); I95.9 Hypotension, unspecified; E11.22 Type 2 diabetes mellitus with diabetic chronic kidney disease; I12.0 Hypertensive chronic kidney disease with stage 5 chronic kidney disease or end stage renal disease; N18.5 Chronic kidney disease, stage 5; R53.1 Weakness; Z99.2 Dependence on renal dialysis; Z79.899 Other long term (current) drug therapy; E03.9 Hypothyroidism, unspecified; T16.2XXA Foreign body in left ear, initial encounter; Z20.828 Contact with and (suspected) exposure to other viral communicable diseases; R53.83 Other fatigue; H92.02 Otalgia, left ear
CPT/HCPCS: 36000; 36415; 70450; 80053; 82947; 83036; 83735; 84484; 85025; 93005; 93041; 93268; 94760; 97161; 99285; G0378; U0003; J1817; A9270-GY

== ENCOUNTER 2021-04-30 12:04 | Emergency (ER) | payer MEDICARE ==
--- NOTE | 2021-04-30 12:50 | ERPHSYRPT ---
- History of Present Illness Source: patient, EMS Exam Limitations: other (Poor historian) Patient Subjective Stated Complaint: Pt had finished dialysis and they went to weigh him and he went down, pt states that he was weak in the knees and is not sure if he lost consciousness Triage Nursing Assessment: Pt brought to the ER by EMS from dialysis, hypertensive, denies pain, pt unsure if he lost consciousness or not, remembers being weak in the knees, was here last week for same issues, pulses normal, sinus rhythm, doesn't appear to be in any distress Physician History: 85 yo wm w syncopal-near syncopal episode at dialysis center after getting full dialysis today. Pt awake/alert/oriented x3 upon arrival. He denies any chest pain/dyspnea/SANCHEZ/N/V/cough/diarrhea/fever/focal weakness/melena/hematochezia. Prior Episodes: single episode today Timing/Duration: resolved prior to arrival Precipitating Factors: other (s/p dialysis) Context: other (getting up from dialysis) Charcter of event(s): collapsed Allergies/Adverse Reactions: Sulfa (Sulfonamide Antibiotics) Allergy (Mild, Verified 04/30/21 12:22) Home Medications: Levothyroxine Sodium 50 Mcg [Synthroid 50 Mcg] 50 mcg PO DAILY 12/01/18 [History] Polyethylene Glycol 3350 [Miralax] 17 gm PO DAILY 12/01/18 [History] Clonidine HCl Tts-2 Patch [Catapres TTS-2 PATCH] 0.1 mg TD WEEKLY 12/04/18 [History] Insulin Aspart [NovoLOG Insulin] 1 unit SQ AC 09/09/19 [History] Rosuvastatin Calcium 5 mg PO HS 09/09/19 [History] Aspirin 81 mg PO DAILY 04/26/21 [History] Doxazosin Mesylate 1 mg PO DAILY 04/26/21 [History] Ferric Citrate [Auryxia] 210 mg PO TIDWMEALS 04/26/21 [History] Insulin Degludec [Tresiba] 25 unit SQ HS 04/26/21 [History] Metoprolol Tartrate 50 mg PO BID 04/26/21 [History] Pantoprazole Sodium [Protonix] 40 mg PO HS 04/26/21 [History] Sildenafil Citrate 20 mg PO DAILY 04/26/21 [History] Tamsulosin HCl 0.4 mg [Flomax 0.4 MG] 0.4 mg PO HS 04/26/21 [History] Hx Tetanus, Diphtheria Vaccination/Date Given: Yes Hx Influenza Vaccination/Date Given: Yes Hx Pneumococcal Vaccination/Date Given: Yes Travel Risk - International Travel Have you traveled outside of the country in past 3 weeks: No - Coronavirus Screening Are you exhibiting any of the following symptoms?: No Close contact with a COVID-19 positive Pt in past 14-21 Days: No - Vaccine Status Have you recieved a Covid-19 vaccination: Yes House Designer: Moderna - Vaccination Dates Date of 2cond Vaccination (if applicable): 11/27/20 - Past Medical History Pertinent Past Medical History: Yes Neurological History: No Pertinent History ENT History: No Pertinent History Cardiac History: Hypertension Respiratory History: No Pertinent History Endocrine Medical History: Diabetes Type II, Hypothyroidism Musculoskeletal History: Arthritis GI Medical History: GERD History: Renal Disease Psycho-Social History: No Pertinent History Male Reproductive Disorders: No Pertinent History - Past Surgical History Past Surgical History: Yes Neuro Surgical History: No Pertinent History Cardiac: No Pertinent History Respiratory: No Pertinent History Gastrointestinal: Cholecystectomy Genitourinary: No Pertinent History Musculoskeletal: No Pertinent History Male Surgical History: Prostate Surgery Other Surgical History: fistula - Social History Smoking Status: Never smoker Exposure to second hand smoke: No Drug Use: none Patient Lives Alone: Yes Significant Family History: no pertinent family hx - Review of Systems Constitutional: No Symptoms Eyes: No Symptoms Ears, Nose, & Throat: No Symptoms Respiratory: No Symptoms Cardiac: No Symptoms Abdominal/Gastrointestinal: No Symptoms Genitourinary Symptoms: No Symptoms Musculoskeletal: No Symptoms Skin: No Symptoms Neurological: No Symptoms Psychological: No Symptoms Endocrine: No Symptoms Hematologic/Lymphatic: No Symptoms Immunological/Allergic: No Symptoms Physical Exam - Nursing Vital Signs Nursing Vital Signs: Initial Vital Signs Pulse Rate 70 04/30/21 12:15 Respiratory Rate 20 04/30/21 12:15 Blood Pressure 147/83 04/30/21 12:15 O2 Sat by Pulse Oximetry 100 04/30/21 12:15 Pain Scale Pain Intensity 0 Hypertensive - [place] Coma Scale Best Eye Response ([place]): (4) open spontaneously Best Verbal Response ([place]): (5) oriented Best Motor Response ([place]): (6) obeys commands [place] Total: 15 - Physical Exam General Appearance: no apparent distress Eye Exam: bilateral eye: normal inspection, PERRL, EOMI Ears, Nose, Throat Exam: normal ENT inspection, TMs normal, pharynx normal, moist mucous membranes Neck Exam: normal inspection, non-tender (C-spine nttp) Respiratory: airway intact, crackles/rales (Rales at bases B), No respiratory distress Cardiovascular: regular rate/rhythm, murmur (2/6SEM) Gastrointestinal: soft, normal bowel sounds, No tenderness Back Exam: normal inspection (No C/T/L-spine TTP) Extremity Exam: normal inspection (Pelvis Stable/Hips NTTP/No upper or LE deformity or TTP) Peripheral Pulses: carotid (R): 2+, carotid (L): 2+ Mental Status: alert, oriented x 3, cooperative pole cutter Exam: normal hearing, normal speech, PERRL Coordination/Gait: normal finger to nose Motor/Sensory: no motor deficit, no sensory deficit, no pronator drift, negative Babinski's sign DTR: bicep (R): 2+, bicep (L): 2+, knee (R): 2+, knee (L): 2+ Skin Exam: normal color, warm, dry SpO2 Interpretation: normal SpO2: 100 O2 Delivery: Room Air - Course EKG Interpreted by Me: RATE (NSR/R74/Normal QT/Mildly prolonged QTc/Qwave 3- AVF/No acute ST-Twave changes) - Radiology Exams Chest X-ray Interpretation: Discussed w/ radiologist (Stable cardiomegaly) - CT Exams Head CT Interpretation: Discussed w/radiologist (Nothing acute) Ordered Tests: Active Orders 24 hr Category Date Time Status EKG-ER Only STAT Care 04/30/21 12:42 Completed IV Insertion STAT Care 04/30/21 12:42 Completed CHEST 1 VIEW (PORTABLE) Stat Exams 04/30/21 12:42 Completed HEAD WITHOUT CONTRAST [CT] Stat Exams 04/30/21 12:43 Completed CBC W DIFF Stat Lab 04/30/21 12:45 Completed CMP Stat Lab 04/30/21 12:45 Completed Manual Differential NC Stat Lab 04/30/21 12:45 Completed TROPONIN Q3H Lab 04/30/21 12:45 Completed TROPONIN Q3H Lab 04/30/21 15:08 Completed Medication Summary Discontinued Medications Generic Name Dose Route Start Last Admin Trade Name Herbie PRN Reason Stop Dose Admin Amlodipine Besylate 5 mg 04/30/21 16:47 04/30/21 16:51 Norvasc 5 Mg PO 04/30/21 16:48 5 mg STAT ONE Administration Amlodipine Besylate Confirm 04/30/21 16:50 Norvasc 5 Mg Administered 04/30/21 16:51 Dose 5 mg .ROUTE .STK-MED ONE Hydralazine HCl 10 mg 04/30/21 15:53 04/30/21 15:55 Apresoline 20 Mg/Ml Inj IV 04/30/21 15:54 10 mg STAT ONE Administration Hydralazine HCl Confirm 04/30/21 15:55 Apresoline 20 Mg/Ml Inj Administered 04/30/21 15:56 Dose 20 mg .ROUTE .STK-MED ONE Hydralazine HCl 10 mg 04/30/21 16:47 04/30/21 16:52 Apresoline 20 Mg/Ml Inj IV 04/30/21 16:48 10 mg STAT ONE Administration Hydralazine HCl Confirm 04/30/21 16:50 Apresoline 20 Mg/Ml Inj Administered 04/30/21 16:51 Dose 20 mg .ROUTE .STK-MED ONE Lab/Rad Data: Laboratory Result Diagrams 04/30/21 12:45 04/30/21 12:45 Laboratory Results 04/30/21 04/30/21 04/30/21 Range/Units 15:08 12:45 12:45 WBC (4.0-10.5) K/mm3 Corrected WBC (auto) K/mm3 RBC (4.1-5.6) M/mm3 Hgb (12.5-18.0) gm/dl Hct (42-50) % MCV (78-100) fl MCH (26-32) pg MCHC (32-36) g/dl RDW (11.5-14.0) % Plt Count (150-450) K/mm3 MPV (7.5-11.0) fl Absolute Granulocytes (1.4-6.9) Segmented Neutrophils (36.-66.) % Band Neutrophils (0.0-2.0) % Lymphocytes (Manual) (24-44) % Monocytes (Manual) (0.0-12.0) % Eosinophils (Manual) (0.00-3.0) % Basophils (Manual) (0.0-1.0) % Metamyelocytes % Nucleated RBCs % Atypical Lymphocytes % Platelet Estimate (NORMAL) RBC Morphology Polychromasia Macrocytosis Sodium 138 (137-145) mmol/L Potassium 4.2 (3.5-5.1) mmol/L Chloride 90 L (98-107) mmol/L Carbon Dioxide 36 H (22-30) mmol/L Anion Gap 16.0 H (5-15) MEQ/L BUN 20 (9-20) mg/dL Creatinine 3.60 H (0.66-1.25) mg/dL Estimated GFR 17.2 ML/MIN Glucose 63 L (74-106) mg/dL Calcium 9.0 (8.4-10.2) mg/dL Total Bilirubin 0.40 (0.2-1.3) mg/dL AST 24 (17-59) U/L ALT 19 (0-50) U/L Alkaline Phosphatase 81 (38-126) U/L Troponin I 0.069 H* 0.075 H* (0.000-0.034) ng/mL Serum Total Protein 7.8 (6.3-8.2) g/dL Albumin 4.7 (3.5-5.0) g/dL 04/30/21 Range/Units 12:45 WBC 7.7 (4.0-10.5) K/mm3 Corrected WBC (auto) 4.5 K/mm3 RBC 3.81 L (4.1-5.6) M/mm3 Hgb 12.4 L (12.5-18.0) gm/dl Hct 39.1 L (42-50) % MCV 102.6 H (78-100) fl MCH 32.5 H (26-32) pg MCHC 31.7 L (32-36) g/dl RDW 13.7 (11.5-14.0) % Plt Count 166 (150-450) K/mm3 MPV 10.2 (7.5-11.0) fl Absolute Granulocytes 6.41 (1.4-6.9) Segmented Neutrophils 81 H (36.-66.) % Band Neutrophils 2 (0.0-2.0) % Lymphocytes (Manual) 7 L (24-44) % Monocytes (Manual) 4 (0.0-12.0) % Eosinophils (Manual) 4 H (0.00-3.0) % Basophils (Manual) 1 (0.0-1.0) % Metamyelocytes 1 % Nucleated RBCs 71 % Atypical Lymphocytes 0 % Platelet Estimate NORMAL (NORMAL) RBC Morphology ABNORMAL Polychromasia 1+ Macrocytosis 1+ Sodium (137-145) mmol/L Potassium (3.5-5.1) mmol/L Chloride (98-107) mmol/L Carbon Dioxide (22-30) mmol/L Anion Gap (5-15) MEQ/L BUN (9-20) mg/dL Creatinine (0.66-1.25) mg/dL Estimated GFR ML/MIN Glucose (74-106) mg/dL Calcium (8.4-10.2) mg/dL Total Bilirubin (0.2-1.3) mg/dL AST (17-59) U/L ALT (0-50) U/L Alkaline Phosphatase (38-126) U/L Troponin I (0.000-0.034) ng/mL Serum Total Protein (6.3-8.2) g/dL Albumin (3.5-5.0) g/dL - Progress Progress: improved Progress Note: 05/01/21 01:21 Pt had transient elevation of blood pressure tx w 10mg IV Hydralyzine. Slightly before discharge, BP started to rise again, so pt treated w 10mg IV Hydralyzine/5mg po Norvasc. Throughout stay pt wo focal weakness/chest pain/dyspnea. Syncope/near-syncope most likely due to over aggressive dialysis. Pt recently admitted for the same problem. Counseled pt/family regarding: lab results, diagnosis, need for follow-up, don dejesus esults - Departure Departure Disposition: Home Clinical Impression: Syncope and collapse, Hypertension Condition: Stable Critical Care Time: No Referrals: LAKISHA SAGASTUME MD [Primary Care Provider] - Instructions: Syncope (Fainting) (DC) Additional Instructions: Follow up with dialysis on Monday Continue current medications Return to ER for chest pain/Shortness of breath/Focal weakness/Temperature gr eater than 100.5
[2021-04-30 13:03] LABS: Hematocrit 39.1 % (42-50); Hemoglobin 12.4 gm/dl (12.5-18.0); Mean Cell Volume 102.6 fl (78-100); Mean Corpuscular Hemoglobin 32.5 pg (26-32); Mean Corpuscular Hgb Concent. 31.7 g/dl (32-36); Mean Platelet Volume 10.2 fl (7.5-11.0); Platelet Count 166 K/mm3 (150-450); Red Blood Count 3.81 M/mm3 (4.1-5.6); Red Cell Distribution Width 13.7 % (11.5-14.0); White Blood Count 7.7 K/mm3 (4.0-10.5)
[2021-04-30 13:07] LABS: ALBUMIN 4.7 g/dL (3.5-5.0); BILIRUBIN,TOTAL 0.4 mg/dL (0.2-1.3); Creatinine 1 3.6 mg/dL (0.66-1.25); EST GLOMERULAR FILTRATION RATE 17.2 ML/MIN; Potassium 4.2 mmol/L (3.5-5.1); Total Protein 7.8 g/dL (6.3-8.2)
--- NOTE | 2021-04-30 13:28 | XRAY ---
Indication: Syncope. Comparison: January 13, 2020. Portable chest less inflated with new bibasilar infiltrates/atelectasis. Stable cardiomegaly and incidental tiny calcified granulomas. Bony thorax intact again with osteopenia and degenerative changes.
--- NOTE | 2021-04-30 14:11 | XRAY ---
Indication: Syncope during dialysis. Multiple contiguous axial images obtained through the head without contrast. Comparison: April 26, 2021. Stable age-appropriate global atrophy and minimal periventricular degenerative micro-ischemia. No acute intracranial hemorrhage, abnormal extra-axial fluid collection, or mass effect. Fourth ventricle is midline without hydrocephalus. Bony calvarium intact. Visualized paranasal sinuses and mastoid air cells are clear. Impression: Continued nonacute senile brain.
[2021-04-30 14:19] LABS: BAND 2 % (0.0-2.0); Eosinophil 4 % (0.00-3.0); Lymphocytes 7 % (24-44); Metamyelocyte 1 %; Monocyte 4 % (0.0-12.0); Neutrophils 81 % (36.-66.); Total Cells Counted 100
[2021-04-30 14:21] LABS: ATYPICAL LYMPHS 0 %; Basophil 1 % (0.0-1.0)
[2021-04-30 14:22] LABS: Corrected WBC 4.5 K/mm3; Nucleated Red Blood Cell 71 %; Platelet Estimate NORMAL (NORMAL); Polychromasia 1+
[2021-04-30 14:23] LABS: Macrocytosis 1+
[2021-04-30 14:24] LABS: Absolute Neutrophil Ct (ANC) 6.41 (1.4-6.9)
[2021-04-30] MEDS ORDERED: APRESOLINE 20 MG/ML INJ IV ONE ×2 (15:53→16:47)
[2021-04-30] MEDS ORDERED: APRESOLINE 20 MG/ML INJ ONE ×2 (15:55→16:50)
[2021-04-30] MEDS ORDERED: NORVASC 5 MG PO ONE (16:47)
[2021-04-30] MEDS ORDERED: NORVASC 5 MG ONE (16:50)
[2021-04-30 17:03] VITALS: BP 175/72; PULSE 73
[2021-04-30 17:06] VITALS: O2SAT 100
== END 2021-04-30 17:36 | disposition home or self-care (01) ==
LOC: ED 12:04
DX: Z79.899 Other long term (current) drug therapy (principal); Z99.2 Dependence on renal dialysis
CPT/HCPCS: 36000; 36415; 70450; 71045; 80053; 84484; 85025; 93005; 96374; 96376; 99284; J0360; A9270-GY